=== PATIENT | male | born 1955 | race Caucasian/White ===

== ENCOUNTER → 2016-06-21 | Outpatient (CLI) | payer MEDICARE, BC ==
[2015-11-21 12:16] VITALS: BP 137/62
[~2016-06-21] MED LIST: ALPR0.254 PO; ASPI325T4 PO; ASPI81TA2 PO; ATOR20TA58 PO; BUPR150T20 PO; CEPH500C PO; ENOX40DI3 SQ; FAMO20TA5 PO; FLUO20CA8 PO; FURO40TA4 PO; GABA600T2 PO; INSU100C4 SQ; INSU100I17 SQ; INSU100I27 SQ; INSU100V13 SQ; INSU100V31 SQ; INSU100V8 SQ; LINE600T PO; LISI-338 PO; LISI10TA2 PO; LISI1TAB5 PO; METF850T2 PO; METH10TA2 PO; METH5TAB4 PO; METO25TA4 PO; METO25TA9 PO; OMEP40CA5 PO; OXYC-250 PO; OXYC1TAB7 PO; SENN-22 PO; SENN1TAB29 PO; SIMV80TA3 PO; SULFUR HEXAFLUORIDE MICROSPHR 25 MG VIAL. IVP ONE; TAMS0.4C2 PO; TRAM1TAB4 PO; TRAZ150T55 PO; TRAZ50TA15 PO; VILA40TA PO; ZOLP10TA4 PO; [UNRECOGNIZED DRUG - CODE] IV; [UNRECOGNIZED DRUG - CODE] PO; tramadol PO
--- NOTE | 2016-06-21 12:50 | CARD ---
APPROVED REPORT EXAM: Two-dimensional and M-mode echocardiogram with Doppler and color Doppler. Other Information Quality : Technically LimitedHR: 61bpm Technically limited study due to body habitus and CABG. INDICATION Aortic Valve Disease 2D DIMENSIONS RVDd3.8 (2.9-3.5cm)Left Atrium(2D)4.7 (1.6-4.0cm) IVSd1.4 (0.7-1.1cm)Aortic Root(2D)2.8 (2.0-3.7cm) LVDd5.7 (3.9-5.9cm)LVOT Diameter2.1 (1.8-2.4cm) PWd1.4 (0.7-1.1cm)LVDs4.0 (2.5-4.0cm) FS (%) 30.4 %SV91.6 ml LVEF(%)57.0 (>50%) Aortic Valve AoV Peak Theodore.381.3cm/sAoV VTI92.8cm AO Peak GR.58.2mmHgLVOT Peak Theodore.120.3cm/s LVOT VTI 28.79cmAO Mean GR.40mmHg TABITHA (VMAX)1.21em6QPQ (VTI)1.11cm2 AI P 1/2 Irmc104mh Mitral Valve MV E Tbjurziq464.6cm/sMV DECEL VPBA959dn MV A Dnpayibk64.2cm/sMV LBA36no E/A Ratio1.6MV A Xdzmabst963xm MVA (PHT)3.90cm2 TDI E/Lateral E'11.8E/Medial E'15.5 LEFT VENTRICLE The left ventricle is normal size. There is mild concentric left ventricular hypertrophy. Left ventri courtney systolic function is normal. The Ejection Fraction is 60-65%. There is normal LV segmental wall m otion. The left ventricular diastolic function and filling is normal for age. There is no ventricular septal defect visualized. RIGHT VENTRICLE The right ventricle is normal size. The right ventricular systolic function is normal. ATRIA The left atrium is mildly dilated. The right atrium size appears normal. The interatrial septum is in tact with no evidence for an atrial septal defect or patent foramen ovale as noted on 2-D or Doppler imaging. AORTIC VALVE Aortic valve not well visualized. The aortic valve is severely calcified and displays decreased openi ng. Doppler and Color Flow revealed mild aortic regurgitation. Maximum pressure gradient of 58 mmHg a nd mean pressure gradient of 34 mmHg. Peak velocity of 3.68 m/s. Dimensionless index of 0.33. TABITHA 1.2 cm2. TABITHA Index of 0.43. Overall, suggestive of severe aortic stenosis. MITRAL VALVE Mitral annular calcification is mild. The mitral valve leaflets are calcified. There is no evidence o f mitral valve prolapse. There is no mitral valve stenosis. Doppler and Color Flow revealed trace kathie ral regurgitation. TRICUSPID VALVE The tricuspid valve is normal in structure and function. Doppler and Color Flow revealed no tricuspid valve regurgitation noted. There is no tricuspid valve stenosis. PULMONIC VALVE The pulmonary valve is normal in structure and function. There is no pulmonic valvular stenosis. GREAT VESSELS The aortic root is normal in size. The ascending aorta is normal in size. Due to poor image quality, the IVC could not be assessed. PERICARDIAL EFFUSION There is no pleural effusion. There is no evidence of significant pericardial effusion. Critical Notification Critical Value: No <Conclusion> Left ventricle systolic function is normal. The Ejection Fraction is 60-65%. There is normal LV segmental wall motion. Maximum pressure gradient of 58 mmHg and mean pressure gradient of 34 mmHg. Peak velocity of 3.68 m/s . Dimensionless index of 0.33. TABITHA 1.2 cm2. TABITHA Index of 0.43. Overall, suggestive of severe aortic s tenosis.
== END | disposition home or self-care (01) ==
LOC: ECHO 09:51
PROVIDERS: ATTEND Internal Medicine Cardiovascular Disease
DX: I08.0 Rheumatic disorders of both mitral and aortic valves (principal)
CPT/HCPCS: C8929; Q9950

== ENCOUNTER → 2016-08-31 | Outpatient (CLI) | payer MEDICARE, BC ==
[2015-11-21 12:16] VITALS: BP 137/62
[~2016-08-31] MED LIST changes: +ASPI-630 PO; -ASPI325T4 PO; +ASPI325T8 PO; -ASPI81TA2 PO; -OXYC-250 PO; +OXYC-328 PO; -SULFUR HEXAFLUORIDE MICROSPHR 25 MG VIAL. IVP ONE; +TRAZ150T49 PO; -TRAZ150T55 PO
--- NOTE | 2016-08-31 14:46 | KCIC ---
MRI of the lumbar spine without contrast 08/31/2016 CLINICAL HISTORY: Low back pain which radiates down the right hip. TECHNIQUE: Unenhanced T1-weighted, T2-weighted sagittal and axial and inversion recovery sagittal images of the lumbar spine were obtained. FINDINGS: Comparison study is dated 08/09/2014 Minimal S-shaped curvature of the thoracolumbar spine is seen. Degenerative signal changes are seen involving the L3-4, L4-5 and L5-S1 discs. Degenerative signal changes are seen within the marrow surrounding these discs. The conus medullaris is normal morphology, position, and signal characteristics. The L1-2 disc space is within normal limits. At the L2-3 disc space there is a mild generalized disc bulge. Degenerative changes are seen involving the facet joints bilaterally. There is mild ligamentum flavum hypertrophy bilaterally. These findings do not result in significant central spinal canal or neural foraminal stenosis. At the L3-4 disc space there is a mild generalized disc bulge. Degenerative changes are seen involving the facet joints bilaterally. There is mild to moderate ligamentum flavum hypertrophy. There is prominence of the posterior epidural fat. These findings when combined do not result in significant central spinal canal or neural foraminal stenosis. At the L4-5 disc space there is a mild generalized disc bulge. Degenerative changes are seen involving the facet joints bilaterally. There is mild ligamentum flavum hypertrophy bilaterally. There is prominence of the posterior epidural fat. These findings when combined result in mild central spinal canal stenosis. No neural foraminal stenosis is seen. At the L5-S1 disc space there is a mild generalized disc bulge. Superimposed on the disc bulge is a right lateral focal disc protrusion. This measures 4 mm in AP diameter. Degenerative changes are seen involving the facet joints bilaterally. There is mild ligamentum flavum hypertrophy bilaterally. These findings when combined do not result in significant central spinal canal stenosis. Mild right neural foraminal stenosis is seen. The left neural foramen is patent. IMPRESSION: The changes of degenerative disc disease are seen involving the lumbar spine. These findings result in mild central spinal canal stenosis at L4-5. Mild right neural foraminal stenosis is seen at L5-S1. Electronically signed by: Reddy Cook MD (08/31/2016 2:43 PM) [facility]
== END | disposition home or self-care (01) ==
LOC: KCIC MRI 10:44
PROVIDERS: ATTEND Internal Medicine
DX: M48.06 Spinal stenosis, lumbar region (principal); M48.07 Spinal stenosis, lumbosacral region; M51.36 Other intervertebral disc degeneration, lumbar region
CPT/HCPCS: 72148

== ENCOUNTER → 2016-09-12 | Outpatient (CLI) | payer MEDICARE, BC ==
[2015-11-21 12:16] VITALS: BP 137/62
[~2016-09-12] MED LIST changes: +IOHEXOL 180 MG/ML 10 ML VIAL. ONE; +methylPREDNISolone ACETATE 40 MG/ML VIAL. ONE; +methylPREDNISolone ACETATE 80 MG/ML VIAL. ONE
--- NOTE | 2016-09-13 01:59 | PAIN ---
DATE OF SERVICE: 09/12/2016 DIAGNOSES: Lumbar radiculopathy with lumbar degenerative disk disease. HISTORY OF PRESENT ILLNESS: The patient is a 61-year-old male who returns for followup, last seen in 05/2014. The patient had a lumbar epidural steroid injection and right sacroiliac joint injection. He reports he did very well after both of these to the right sacroiliac joint was helpful as was the lumbar epidural steroid injection, but the patient reports that the pain has returned over the past 2 years now in the low back, right lower extremity, much more radiating at this time in to the posterior gluteus, posterior thigh, posterior lateral thigh and into the lower leg, and sometimes into the ankle, but mostly just into the calf on the right side. The patient reports no new motor or sensory deficits, no left-sided symptoms, reports his pain is anywhere from a 4 to 7 on a scale of 10, it is generally about 5. The patient reports it as aching and burning as well as a shooting pain that can be stabbing and cramping in his low back and is becoming more constant, much more noticeable with weightbearing, standing and walking much less comfortable and better with sitting. The patient reports it awakens him from sleep about once or twice a night, but generally he sleeps fairly well. It is better with lying down and sitting is noted. The patient reports no new motor or sensory deficits or other complaints. Did have a new MRI scan showing increased generalized disk bulge at L5-S1 with a right lateral focal disk protrusion at about 4 mm in AP diameter, also L4-L5. The patient with some mild generalized disk bulging as well as at L3-L4 and L2-L3. The patient reports significant fatigability of the right lower extremity and difficulty with walking and standing and reports he has fallen several times over the past few months secondary to the legs feeling unstable. PAST MEDICAL HISTORY: Significant for diabetes, hearing loss, shortness of breath, sleep apnea, quit cigarette smoking, hyperlipidemia, ____, depression, cardiac disease, arthritis, and headaches. PREVIOUS SURGERY: Include open heart surgery, appendectomy, left elbow surgery, cervical fusion and tonsillectomy as well as right knee scope. CURRENT MEDICATIONS: Include metformin, trazodone, metoprolol, senna, lisinopril, fluoxetine, omeprazole, NovoLog, bupropion, and trazodone. FAMILY HISTORY: Significant for no known medical conditions or illnesses. SOCIAL HISTORY: The patient has quit smoking. Does not drink alcohol. Lives with his spouse and lives locally. REVIEW OF SYSTEMS: The patient's review of systems is positive for those items mentioned in history of present illness, is completed, full, well documented on the patient's chart. PHYSICAL EXAMINATION: VITAL SIGNS: The patient's blood pressure is 131/62, pulse 78, respirations are 20, temperature is 98.3 degrees Fahrenheit, height is 6 feet 5 inches, weight is 334 pounds. GENERAL: The patient is awake, alert, oriented, appropriate, very pleasant demeanor. HEENT: Head shows normocephalic, atraumatic. Extraocular movements are intact and symmetrical. Oral cavity, mucous membranes are moist and pink. Dentition is intact. NECK: Shows anterior throat supple without palpable lymphadenopathy noted. Swallow reflex is symmetrical. Neck shows full rotational motion with some mild tenderness with extension, but not with forward flexion and good right and left lateral rotation. CHEST: Shows normal on inspection. Breath sounds are clear to auscultation bilaterally. No rales, rhonchi or wheezes were auscultated. HEART: Shows S1 and S2 clear. No murmurs auscultated. ABDOMEN: Obese, soft, nontender, nondistended. No palpable organomegaly is noted. BACK: Shows spine grossly midline. Normal appearing thoracic kyphosis and lumbar lordotic curvatures. Lumbar paraspinous muscle shows some moderate tenderness diffusely in the lower lumbar distribution bilaterally, worse on the right than the left, also some minor tenderness over the posterior superior iliac spine on the right side, but not the left side, but only very minor with palpation. The patient shows good rotation and motion of the lumbar spine, both laterally as well as extension and flexion without difficulty. EXTREMITIES: The patient's lower extremities showed deep tendon reflexes 1+ in the patellar and tendo calcaneus tendons are equal. Motor exam is intact with dorsiflexion and extension rated at 5/5 at his quadriceps and hamstring flexion. Right side shows positive straight leg raise on the right at about 45 degrees, but decreased with knee flexion, left side is negative. Gaenslen's and Rene's maneuvers are negative bilaterally. The patient is able to stand, but difficulty standing and walking with significant favoring gait of his right lower extremity. He has a walker, but is not using it currently. Options were discussed with the patient. The patient's old chart was reviewed as his current medication regimen updated. Current review of systems updated today as noted. We will proceed with a lumbar epidural steroid injection. He has done well with these in the past by his report. Risks were again discussed including, but not limited to bleeding, infection, possibility of epidural hematoma, subsequent neurologic compromise, dural puncture, headaches, spinal cord and/or nerve damage, side effects of steroid medication and poor results regarding pain control. The patient understands and wishes to proceed. The patient will return to clinic in approximately 2 weeks for followup, was counseled on return appointment, activity level and side effects to be aware of. DIAGNOSIS: Lumbar radiculopathy with lumbar degenerative disk disease. PROCEDURES Lumbar epidural steroid injection in translaminar approach at the L5-S1 level using C-arm fluoroscopic guidance under sterile prep and drape using local anesthetic. Medication injected is 120 mg Depo-Medrol plus 10 mL of preservative-free normal saline and 2 mL of Isovue for contrast. CONDITION AT DISCHARGE: Stable. The patient tolerated procedure well, had no complications. ANTONIO DELVALLE MD DR: MOSES/hailee JOB#: [id number] / [id number]
== END | disposition home or self-care (01) ==
LOC: PNCL 12:42
PROVIDERS: ATTEND Anesthesiology
DX: M51.16 Intervertebral disc disorders with radiculopathy, lumbar region (principal); E11.9 Type 2 diabetes mellitus without complications; H91.90 Unspecified hearing loss, unspecified ear; E78.5 Hyperlipidemia, unspecified; F32.9 Major depressive disorder, single episode, unspecified; M19.90 Unspecified osteoarthritis, unspecified site; E78.00 Pure hypercholesterolemia, unspecified; I10 Essential (primary) hypertension; F41.9 Anxiety disorder, unspecified; F17.200 Nicotine dependence, unspecified, uncomplicated; Z87.891 Personal history of nicotine dependence; Z86.69 Personal history of other diseases of the nervous system and sense organs; Z90.49 Acquired absence of other specified parts of digestive tract; Z87.39 Personal history of other diseases of the musculoskeletal system and connective tissue; Z86.39 Personal history of other endocrine, nutritional and metabolic disease; Z72.0 Tobacco use; Z88.6 Allergy status to analgesic agent
CPT/HCPCS: 62323; J1030; J1040

== ENCOUNTER → 2017-05-10 | Outpatient (CLI) | payer MEDICARE, BC | END | disposition home or self-care (01) | LOC: KCIC 15:22 | DX: I35.0 Nonrheumatic aortic (valve) stenosis (principal); R91.8 Other nonspecific abnormal finding of lung field; Z95.0 Presence of cardiac pacemaker | CPT/HCPCS: 71046 ==

== ENCOUNTER → 2017-10-01 | Outpatient (CLI) | payer MEDICARE, BC ==
[2017-02-17 15:15] VITALS: BP 128/57
[~2017-10-01] MED LIST changes: +ACET500T68 PO; +ATORVASTATIN CA80 MG PO; +CHOL10003 PO; +CLOP75TA PO; +CYAN25008 PO; +DICL100G18 TP; +DOCU100C28 PO; +ERGO500027 PO; +FLUO40CA2 PO; -IOHEXOL 180 MG/ML 10 ML VIAL. ONE; +METH20TA8 PO; +METO-239 PO; -METO25TA9 PO; +NITR0.4T22 SL; +PERFLUTREN PROTEIN-A MICROSPHR 0.22 MG/ML 3 ML VIAL. IV ONE; -SIMV80TA3 PO; +SIMV80TA7 PO; +TRAZ-85 PO; -TRAZ50TA15 PO; +TRIA15OI9 TP; -methylPREDNISolone ACETATE 40 MG/ML VIAL. ONE; -methylPREDNISolone ACETATE 80 MG/ML VIAL. ONE
--- NOTE | 2017-10-01 11:28 | CARD ---
MR#: [id number] Date of Study: 10/01/2017 Ordering Physician: NAHUM SEXTON, Referring Physician: NAHUM SEXTON, Tech: DESIRAE Solis APPROVED REPORT EXAM: Two-dimensional and M-mode echocardiogram with Doppler and color Doppler. Other Information Quality : PoorHR: 91bpm Technically limited study due to body habitus and smoking. INDICATION Aortic Stenosis Echo Enhancing Agent Indication: Endocardial border delineation Agent/Amount Used: Optison 3mL Surgery/Intervention Status/Post Aortic Valve Replacement: Pacemaker: RISK FACTORS Hypertension Obesity Smoking 2D DIMENSIONS RVDd5.2 (2.9-3.5cm)Left Atrium(2D)3.5 (1.6-4.0cm) IVSd1.6 (0.7-1.1cm)Aortic Root(2D)3.0 (2.0-3.7cm) LVDd3.9 (3.9-5.9cm)LVOT Diameter2.0 (1.8-2.4cm) PWd1.6 (0.7-1.1cm)LVDs3.0 (2.5-4.0cm) FS (%) 22.8 %SV30.0 ml LVEF(%)46.4 (>50%) Aortic Valve AoV Peak Theodore.111.2cm/sAoV VTI22.0cm AO Peak GR.4.9mmHgLVOT Peak Theodore.100.9cm/s LVOT VTI 20.82cmAO Mean GR.3mmHg TABITHA (VMAX)1.54jn0FDE (VTI)3.06cm2 Mitral Valve MV E Bjbvoejm29.2cm/sMV DECEL CMMD350zv MV A Ehwdrhbt729.4cm/sMV JTA195rw E/A Ratio0.7MVA (PHT)1.47cm2 TDI E/Lateral E'9.5E/Medial E'8.9 Pulmonary Valve RVOT VTI14.8cm LEFT VENTRICLE The left ventricle is normal size. There is moderate concentric left ventricular hypertrophy. The lef t ventricular systolic function is normal and the ejection fraction is within normal range. ef 55% Th ere is normal LV segmental wall motion. Transmitral Doppler flow pattern is Grade I-abnormal relaxati on pattern. RIGHT VENTRICLE The right ventricle is mildly dilated. The right ventricular systolic function is normal. ATRIA The left atrium size is normal. The right atrium size is normal. The interatrial septum is intact wit h no evidence for an atrial septal defect or patent foramen ovale as noted on 2-D or Doppler imaging. AORTIC VALVE Doppler and Color Flow revealed no significant aortic regurgitation. There is no significant aortic v alvular stenosis. There is no aortic valvular vegetation. Transcatheter aortic valve not well visuali zed. Grossly no significant stenosis or regurgitation. MITRAL VALVE The mitral valve is not well visualized. There is no mitral valve stenosis. Doppler and Color Flow re vealed no mitral valve regurgitation noted. TRICUSPID VALVE The tricuspid valve is not well visualized. Doppler and color-flow analysis was performed. There is n o tricuspid valve stenosis. PULMONIC VALVE The pulmonic valve is not well visualized. Doppler and Color Flow revealed no pulmonic valvular regur gitation. There is no pulmonic valvular stenosis. GREAT VESSELS The aortic root is not well visualized. The IVC was not visualized. PERICARDIAL EFFUSION There is no pleural effusion. There is no evidence of significant pericardial effusion. Critical Notification Critical Value: No <Conclusion> The left ventricular systolic function is normal and the ejection fraction is within normal range. ef 55% There is normal LV segmental wall motion. The right ventricle is mildly dilated. Transcatheter aortic valve not well visualized. Grossly no significant stenosis or regurgitation. Technically very difficult study despite contrast use due to body habitus. Signed by : Nahum Sexton, Electronically Approved : 10/01/2017 11:27:49
== END | disposition home or self-care (01) ==
LOC: ECHO 08:49
PROVIDERS: ATTEND Internal Medicine Cardiovascular Disease
DX: I35.0 Nonrheumatic aortic (valve) stenosis (principal); I11.0 Hypertensive heart disease with heart failure; I50.9 Heart failure, unspecified; E11.9 Type 2 diabetes mellitus without complications; E78.00 Pure hypercholesterolemia, unspecified; J44.9 Chronic obstructive pulmonary disease, unspecified; I25.10 Atherosclerotic heart disease of native coronary artery without angina pectoris; K21.9 Gastro-esophageal reflux disease without esophagitis; Z87.891 Personal history of nicotine dependence
CPT/HCPCS: C8929; Q9956

== ENCOUNTER 2017-11-23 23:53 | Emergency (ER) | payer MEDICARE, BC ==
[~2017-11-23] VITALS: Ht 195.6 cm; Wt 155.6 kg
[~2017-11-23 23:53] MED LIST changes: -METF850T2 PO; +METF850T8 PO; -PERFLUTREN PROTEIN-A MICROSPHR 0.22 MG/ML 3 ML VIAL. IV ONE
[2017-11-24 00:17] LABS: BASO # 0.1 x10^3/uL (0.0-0.2); BASO % 1 % (0-3); EOS # 0.3 x10^3/uL (0.0-0.7); EOS % 3 % (0-3); HEMATOCRIT 36.3 % (39.0-53.0); LYMPH # 2.4 x10^3/uL (1.0-4.8); LYMPH % 24 % (24-48); MEAN CORPUSCULAR HEMOGLOBIN 26 pg (25-35); MEAN CORPUSCULAR HGB CONC 33 g/dL (31-37); MEAN CORPUSCULAR VOLUME 79 fL (79-100); MONO # 1.3 x10^3/uL (0.0-1.1); MONO % 13 % (0-9); NEUT # 5.8 x10^3uL (1.8-7.7); NEUT % 59 % (31-73); PLATELET COUNT 256 x10^3/uL (140-400); RED BLOOD COUNT 4.61 x10^6/uL (4.30-5.70); RED CELL DISTRIBUTION WIDTH 17.5 % (11.5-14.5); WHITE BLOOD COUNT 9.9 x10^3/uL (4.0-11.0)
[2017-11-24 00:29] LABS: CALCIUM 9.6 mg/dL (8.5-10.1); CREATININE 1.4 mg/dL (0.7-1.3); POTASSIUM 4.2 mmol/L (3.5-5.1)
[2017-11-24 00:34] LABS: ALBUMIN 3.5 g/dL (3.4-5.0); ALBUMIN/GLOBULIN RATIO 0.9 (1.0-1.7); TOTAL BILIRUBIN 0.3 mg/dL (0.2-1.0); TOTAL PROTEIN 7.3 g/dL (6.4-8.2)
--- NOTE | 2017-11-24 01:34 | RAD ---
Bilateral lower extremity venous Doppler: Reason for examination: Bilateral leg edema. The right and left lower extremity venous systems were evaluated from the common femoral and greater saphenous veins distally to the calf veins with grayscale imaging, color-flow imaging and spectral analysis. There is no evidence of deep venous thrombosis seen. There appears to be normal venous blood flow. There is normal response of the venous systems to compression and augmentation. IMPRESSION: No deep venous thrombosis in the right or left lower extremity. Electronically signed by: Miriam Steve MD (11/24/2017 1:31 AM) [facility]
[2017-11-24 02:45] VITALS: BP 135/59
--- NOTE | 2017-11-24 02:49 | RAD ---
Chest AP portable at 1205: Reason for examination: Syncope. Chest pain. Comparison is made to previous study dated 05/10/2017. Pacemaker remains present over the left hemithorax. There are postop changes in the sternum. The heart size appears to be enlarged. Lung graves are clear. No acute bony abnormalities are seen. There are postop changes in the lower cervical spine. IMPRESSION: Cardiomegaly. No acute congestion or infiltrates. Electronically signed by: Miriam Steve MD (11/24/2017 2:46 AM) [facility]
--- NOTE | 2017-11-24 05:21 | PHYS DOC ---
Past Medical History Past Medical History: Arthritis, CAD, Depression, Diabetes-Type II, GERD, High Cholesterol, Hypertension, Other Additional Past Medical Histor: neuropathy Past Surgical History: Other Additional Past Surgical Histo: bilat great toes,bilat knee sx,R elbow,neck fusion,PACEMAKER,STENT,VALVE Alcohol Use: None Drug Use: None Adult General Chief Complaint Chief Complaint: WEAKNESS/GENERALIZED HPI HPI Patient is a 62 year old male with history of CAD, osteoarthritis, trouble and diabetes, who presents with accidental fall from standing. Patient states he was getting out of bed to use bathroom please give out causing him to fall. Patient denies injury from fall but states he was unable to stand. Spouse reports the patient was week and difficulty responding, symptoms corrected prior to EMS arrival. Patient denies headache, head injury, neck pain, palpitations, shortness of breath, focal extremity weakness or loss of sensation. Patient does acknowledge taking sleeping pill prior to bed per his normal routine. Other than leg cramps which are chronic, he denies any symptoms in the emergency department..[] Review of Systems Review of Systems Review symptoms as per history of present illness. All other review symptoms are negative.[] All other systems were reviewed and found to be within normal limits, except as documented in this note. Allergies Allergies Allergies Coded Allergies Type Severity Reaction Last Updated Verified cortisone Allergy Intermediate Pt had swelling at injection site 02/03/15 Yes Physical Exam Physical Exam Constitutional: Well developed, well nourished, no acute distress, non-toxic appearance. [] HENT: Normocephalic, atraumatic, bilateral external ears normal, oropharynx moist, no oral exudates, nose normal. [] Eyes: PERRLA, EOMI, conjunctiva normal, no discharge. [] Neck: Normal range of motion, no tenderness, supple, no stridor. [] Cardiovascular:Heart rate regular rhythm, no murmur [] Lungs & Thorax: Bilateral breath sounds clear to auscultation [] Abdomen: Bowel sounds normal, soft, no tenderness. [] Skin: Warm, dry, no erythema, no rash. [] Back: No tenderness, no CVA tenderness. [] Extremities: No tenderness, no edema. [] Neurologic: Alert and oriented X 3, normal motor function, normal sensory function, no focal deficits noted. [] Psychologic: Affect normal, judgement normal, mood normal. [] Current Patient Data Vital Signs Vital Signs Date Time Temp Pulse Resp B/P (MAP) Pulse Ox O2 Delivery O2 Flow Rate FiO2 11/24/17 02:45 90 20 92 11/23/17 23:53 98.1 120/72 (88) Room Air 98.1 Lab Values Laboratory Tests Test 11/23/17 23:05 White Blood Count 9.9 x10^3/uL (4.0-11.0) Red Blood Count 4.61 x10^6/uL (4.30-5.70) Hemoglobin 12.0 g/dL (13.0-17.5) L Hematocrit 36.3 % (39.0-53.0) L Mean Corpuscular Volume 79 fL (79-100) Mean Corpuscular Hemoglobin 26 pg (25-35) Mean Corpuscular Hemoglobin Concent 33 g/dL (31-37) Red Cell Distribution Width 17.5 % (11.5-14.5) H Platelet Count 256 x10^3/uL (140-400) Neutrophils (%) (Auto) 59 % (31-73) Lymphocytes (%) (Auto) 24 % (24-48) Monocytes (%) (Auto) 13 % (0-9) H Eosinophils (%) (Auto) 3 % (0-3) Basophils (%) (Auto) 1 % (0-3) Neutrophils # (Auto) 5.8 x10^3uL (1.8-7.7) Lymphocytes # (Auto) 2.4 x10^3/uL (1.0-4.8) Monocytes # (Auto) 1.3 x10^3/uL (0.0-1.1) H Eosinophils # (Auto) 0.3 x10^3/uL (0.0-0.7) Basophils # (Auto) 0.1 x10^3/uL (0.0-0.2) D-Dimer (Lizet) 0.75 ug/mlFEU (0.00-0.50) H Sodium Level 142 mmol/L (136-145) Potassium Level 4.2 mmol/L (3.5-5.1) Chloride Level 100 mmol/L (98-107) Carbon Dioxide Level 33 mmol/L (21-32) H Anion Gap 9 (6-14) Blood Urea Nitrogen 20 mg/dL (8-26) Creatinine 1.4 mg/dL (0.7-1.3) H Estimated GFR (Cockcroft-Gault) 51.0 BUN/Creatinine Ratio 14 (6-20) Glucose Level 100 mg/dL (70-99) H Calcium Level 9.6 mg/dL (8.5-10.1) Total Bilirubin 0.3 mg/dL (0.2-1.0) Aspartate Amino Transferase (AST) 30 U/L (15-37) Alanine Aminotransferase (ALT) 30 U/L (16-63) Alkaline Phosphatase 122 U/L (46-116) H Troponin I Quantitative < 0.017 ng/mL (0.000-0.055) Total Protein 7.3 g/dL (6.4-8.2) Albumin 3.5 g/dL (3.4-5.0) Albumin/Globulin Ratio 0.9 (1.0-1.7) L Laboratory Tests 11/23/17 23:05 Laboratory Tests 11/23/17 23:05 EKG EKG [EKG: NAD] Radiology/Procedures Radiology/Procedures CXR: NAD[] Course & Med Decision Making Course & Med Decision Making Pertinent Labs and Imaging studies reviewed. (See chart for details) [Labs, EKG imaging reviewed. Patient able to walk and wheelchair with steady gait. feels improved and requests discharge home. Recommend follow-up with the for further evaluation. Return precautions reviewed. Patient verbalizes understanding agreement discharge instructions prior to departure.] Dragon Disclaimer Dragon Disclaimer This electronic medical record was generated, in whole or in part, using a voice recognition dictation system. Departure Departure Impression: Primary Impression: Bilateral leg cramps Disposition: 01 HOME, SELF-CARE Condition: STABLE Patient Instructions: Leg Cramps Additional Instructions: You were valuated emergency department for leg cramping brief change of consciousness. CT, lab and imaging studies were performed. The cause of your symptoms has not been determined. Please keep your walker next to the bed and use a bedside commode or urinal. Contact your PCP tomorrow and schedule follow- up appointment early next week. Return to the ED if new or worsening symptoms.. CHRIS SHEPHERD DO Nov 24, 2017 05:21
--- NOTE | 2017-11-24 13:01 | EKG ---
[facility] [address] [place] [address] Test Date: 2017-11-23 Test Time: 23:51:54 Pat Name: ISRAEL MOFFETT Department: Room: Gender: M Social Media Developer: : [id number] Requested By: CHRIS SHEPHERD Order Number: [id number] Reading MD: Measurements Intervals [place] Rate: 92 P: 31 HI: 178 QRS: 69 QRSD: 146 T: 23 QT: 408 QTc: 510 Interpretive Statements SINUS RHYTHM RIGHT BUNDLE BRANCH BLOCK RVH WITH REPOLARIZATION ABNORMALITY ABNORMAL ECG RI6.01 No previous ECG available for comparison
== END 2017-11-24 03:20 | disposition home or self-care (01) ==
LOC: ER 23:53
DX: R25.2 Cramp and spasm (principal); J45.909 Unspecified asthma, uncomplicated; K21.9 Gastro-esophageal reflux disease without esophagitis; I25.10 Atherosclerotic heart disease of native coronary artery without angina pectoris; E11.40 Type 2 diabetes mellitus with diabetic neuropathy, unspecified; E78.00 Pure hypercholesterolemia, unspecified; I10 Essential (primary) hypertension; R07.89 Other chest pain; R55 Syncope and collapse; R60.0 Localized edema; M19.90 Unspecified osteoarthritis, unspecified site; Z95.0 Presence of cardiac pacemaker; Z98.1 Arthrodesis status; Z95.5 Presence of coronary angioplasty implant and graft; Z88.8 Allergy status to other drugs, medicaments and biological substances
CPT/HCPCS: 36415; 71045; 80053; 84484; 85025; 85379; 93005; 93970; 99285-25

== ENCOUNTER → 2018-01-14 | Outpatient (CLI) | payer MEDICARE, BC ==
[2018-01-04 08:53] VITALS: BP 129/74
[~2018-01-14] MED LIST changes: +CITA20TA6 PO; +MIDO5TAB PO; -OXYC-328 PO; +OXYC1TAB22 PO
--- NOTE | 2018-01-14 15:40 | KCIC ---
EXAM: Carotid Doppler sonogram. HISTORY: Carotid bruit. TECHNIQUE: Arcos scale and color Doppler sonographic evaluation of the neck with spectral waveform analysis was performed and static images are submitted for review. FINDINGS: The exam is extremely limited due to patient body habitus and motion throughout the exam. There is moderate atherosclerotic plaque within the right greater left common carotid arteries, bilateral carotid bulbs and proximal internal and external carotid arteries. The peak systolic velocity within the right common carotid artery is 140 cm/sec. The peak systolic velocity within the right internal carotid artery is 172 cm/sec and the end diastolic velocity within the right internal carotid artery is 27 cm/sec. The right ICA/CCA ratio is 1.33. The peak systolic velocity within the left common carotid artery is 1 heart and 35 cm/sec. The peak systolic velocity within the left internal carotid artery is 98 cm/sec and the end diastolic velocity within the left internal carotid artery is 28 cm/sec. The left ICA/CCA ratio is 0.72. There is normal antegrade flow within the right vertebral artery. The left vertebral artery is not well seen. IMPRESSION: 1. Significantly limited exam due to body habitus and patient motion. 2. Moderate atherosclerotic plaque throughout the common, internal and external carotid arteries and carotid bulbs. 3. Elevated peak systolic velocity within the right ICA. Despite normal ICA to CCA ratio, this suggests 50-69 percent stenosis. 4. Suboptimal evaluation of the left vertebral artery. This may be due to low flow, hypoplasia or aforementioned study limitations. PQRS Compliance Statement - Stenosis calculations for CT, MR and conventional angiography are based upon measurement of the distal ICA diameter in accordance with the NASCET methodology. Stenosis calculations for carotid ultrasound studies are derived from validated velocity criteria which are known to correlate with the NASCET methodology. Electronically signed by: Glenys Ng MD (01/14/2018 3:37 PM) [facility]
== END | disposition home or self-care (01) ==
LOC: KCIC US 13:06
PROVIDERS: ATTEND Internal Medicine
DX: I65.23 Occlusion and stenosis of bilateral carotid arteries (principal)
CPT/HCPCS: 93880

== ENCOUNTER 2018-06-10 12:29 | Emergency (ER) | payer MEDICARE, BC ==
[~2018-06-10] VITALS: Ht 195.6 cm; Wt 163.3 kg
[~2018-06-10 12:29] MED LIST changes: -GABA600T2 PO; +GABA600T7 PO; +SIMV80TA17 PO; -SIMV80TA7 PO; +TRAZ-118 PO; -TRAZ-85 PO
--- NOTE | 2018-06-10 12:52 | PHYS DOC ---
Past Medical History Past Medical History: Arthritis, CAD, Depression, Diabetes-Type II, GERD, High Cholesterol, Hypertension, Other Additional Past Medical Histor: neuropathy,SLEEP APNEA Past Surgical History: Angioplasty, Pacemaker, Other Additional Past Surgical Histo: bilat great toes/knee sx,L elbow,neck fusion,STENT,VALVE,ANAL FISSURE Alcohol Use: None Drug Use: None Adult General Chief Complaint Chief Complaint: SHORTNESS OF BREATH HPI HPI Patient is a 62 year old M who presents with SOB and CP. He has a history of a quadruple bypass. He says he is sob and has cp with exertion. He denies dizziness, syncope, vomiting, fever, cough. He denies orthopnea. [place] and became very sob. 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 Review of Systems Review of Systems Constitutional: Denies fever or chills Eyes: Denies change in visual acuity, redness, or eye pain HENT: Denies nasal congestion or sore throat Respiratory: Denies cough; endorses shortness of breath Cardiovascular: endorses cp GI: Denies abdominal pain, nausea, vomiting, bloody stools or diarrhea : Denies dysuria or hematuria Musculoskeletal: Denies back pain or joint pain Integument: Denies rash or skin lesions Neurologic: Denies headache, focal weakness or sensory changes Endocrine: Denies polyuria or polydipsia All other systems were reviewed and found to be within normal limits, except as documented in this note. Current Medications Current Medications Current Medications Medications (Trade) Dose Ordered Sig/Martha Start Time Stop Time Status Last Admin Dose Admin Info (CONTRAST GIVEN -- Rx MONITORING) 1 each PRN DAILY PRN 06/10/18 13:30 06/12/18 13:29 Iohexol (Omnipaque 350 Mg/ml) 100 ml 1X ONCE 06/10/18 13:30 06/10/18 13:31 DC 06/10/18 13:35 100 ML Allergies Allergies Allergies Coded Allergies Type Severity Reaction Last Updated Verified cortisone Allergy Intermediate Pt had swelling at injection site 02/03/15 Yes Physical Exam Physical Exam Constitutional: Well developed, well nourished, no acute distress, non-toxic appearance. HENT: Normocephalic, atraumatic, bilateral external ears normal, oropharynx moist, no oral exudates, nose normal. Eyes: PERRLA, EOMI, conjunctiva normal, no discharge. Neck: Normal range of motion, no tenderness, supple, no stridor. Cardiovascular:Heart rate regular rhythm, no murmur Lungs & Thorax: Bilateral breath sounds clear to auscultation Abdomen: Bowel sounds normal, soft, no tenderness, no masses, no pulsatile masses. Skin: Warm, dry, no erythema, no rash. Back: No tenderness, no CVA tenderness. Extremities: No tenderness, no cyanosis, no clubbing, ROM intact, no edema. Neurologic: Alert and oriented X 3, normal motor function, normal sensory function, no focal deficits noted. Psychologic: Affect normal, judgement normal, mood normal. Current Patient Data Vital Signs Vital Signs Date Time Temp Pulse Resp B/P (MAP) Pulse Ox O2 Delivery O2 Flow Rate FiO2 06/10/18 12:46 97.9 93 20 145/65 (91) 94 Room Air 97.9 Lab Values Laboratory Tests Test 06/10/18 12:50 06/10/18 12:55 06/10/18 15:15 White Blood Count 7.4 x10^3/uL (4.0-11.0) Red Blood Count 4.32 x10^6/uL (4.30-5.70) Hemoglobin 10.6 g/dL (13.0-17.5) L Hematocrit 33.7 % (39.0-53.0) L Mean Corpuscular Volume 78 fL (79-100) L Mean Corpuscular Hemoglobin 25 pg (25-35) Mean Corpuscular Hemoglobin Concent 31 g/dL (31-37) Red Cell Distribution Width 17.2 % (11.5-14.5) H Platelet Count 239 x10^3/uL (140-400) Neutrophils (%) (Auto) 68 % (31-73) Lymphocytes (%) (Auto) 18 % (24-48) L Monocytes (%) (Auto) 12 % (0-9) H Eosinophils (%) (Auto) 2 % (0-3) Basophils (%) (Auto) 1 % (0-3) Neutrophils # (Auto) 5.0 x10^3uL (1.8-7.7) Lymphocytes # (Auto) 1.3 x10^3/uL (1.0-4.8) Monocytes # (Auto) 0.9 x10^3/uL (0.0-1.1) Eosinophils # (Auto) 0.1 x10^3/uL (0.0-0.7) Basophils # (Auto) 0.0 x10^3/uL (0.0-0.2) Prothrombin Time 13.5 SEC (11.7-14.0) Prothrombin Time INR 1.1 (0.8-1.1) Sodium Level 141 mmol/L (136-145) Potassium Level 4.4 mmol/L (3.5-5.1) Chloride Level 104 mmol/L (98-107) Carbon Dioxide Level 29 mmol/L (21-32) Anion Gap 8 (6-14) Blood Urea Nitrogen 17 mg/dL (8-26) Creatinine 1.2 mg/dL (0.7-1.3) Estimated GFR (Cockcroft-Gault) 61.0 BUN/Creatinine Ratio 14 (6-20) Glucose Level 150 mg/dL (70-99) H Calcium Level 8.9 mg/dL (8.5-10.1) Magnesium Level 1.7 mg/dL (1.8-2.4) L Total Bilirubin 0.3 mg/dL (0.2-1.0) Aspartate Amino Transferase (AST) 25 U/L (15-37) Alanine Aminotransferase (ALT) 23 U/L (16-63) Alkaline Phosphatase 113 U/L (46-116) PS-Akz-V-Type Natriuretic Peptide 195 pg/mL (0-124) H Total Protein 6.4 g/dL (6.4-8.2) Albumin 3.1 g/dL (3.4-5.0) L Albumin/Globulin Ratio 0.9 (1.0-1.7) L Troponin I Quantitative 0.041 ng/mL (0.000-0.055) 0.033 ng/mL (0.000-0.055) Laboratory Tests 06/10/18 12:50 Laboratory Tests 06/10/18 12:50 EKG EKG Sinus rhythm 92 bpm, no ST elev or depr, nonischemic, QTc 503 Radiology/Procedures Radiology/Procedures [] Course & Med Decision Making Course & Med Decision Making Pertinent Labs and Imaging studies reviewed. (See chart for details) 62 y/o M with h/o 4xCABG presents for cp and sob with exertion. Labs show neg trop. EKG no acute ischemia. CT chest neg for PE. I recommended obs admission for ACS rule out - pt requests 2nd opinion. Consulted Dr. Johann Arrieta. He recs dc home if delta trop neg. Repeat trop neg. Dc home. Discussed return precautions. Dragon Disclaimer Dragon Disclaimer This electronic medical record was generated, in whole or in part, using a voice recognition dictation system. Departure Departure Impression: Primary Impression: Chest pain Disposition: HOME, SELF-CARE Condition: IMPROVED Referrals: POLLO ARTEAGA MD (PCP) Patient Instructions: Chest Pain (Nonspecific) CANDIDO RICK MD Jun 10, 2018 12:52
[2018-06-10 13:02] LABS: BASO % 1 % (0-3); EOS # 0.1 x10^3/uL (0.0-0.7); EOS % 2 % (0-3); HEMATOCRIT 33.7 % (39.0-53.0); HEMOGLOBIN 10.6 g/dL (13.0-17.5); LYMPH # 1.3 x10^3/uL (1.0-4.8); LYMPH % 18 % (24-48); MEAN CORPUSCULAR HEMOGLOBIN 25 pg (25-35); MEAN CORPUSCULAR HGB CONC 31 g/dL (31-37); MEAN CORPUSCULAR VOLUME 78 fL (79-100); MONO # 0.9 x10^3/uL (0.0-1.1); MONO % 12 % (0-9); NEUT % 68 % (31-73); PLATELET COUNT 239 x10^3/uL (140-400); RED BLOOD COUNT 4.32 x10^6/uL (4.30-5.70); RED CELL DISTRIBUTION WIDTH 17.2 % (11.5-14.5); WHITE BLOOD COUNT 7.4 x10^3/uL (4.0-11.0)
[2018-06-10 13:12] LABS: PROTHROMBIN TIME PATIENT 13.5 SEC (11.7-14.0)
[2018-06-10 13:14] LABS: CALCIUM 8.9 mg/dL (8.5-10.1); CREATININE 1.2 mg/dL (0.7-1.3); POTASSIUM 4.4 mmol/L (3.5-5.1)
[2018-06-10 13:20] LABS: ALBUMIN 3.1 g/dL (3.4-5.0); ALBUMIN/GLOBULIN RATIO 0.9 (1.0-1.7); MAGNESIUM 1.7 mg/dL (1.8-2.4); TOTAL BILIRUBIN 0.3 mg/dL (0.2-1.0); TOTAL PROTEIN 6.4 g/dL (6.4-8.2)
[2018-06-10] MEDS ORDERED: CONTRAST GIVEN. MC PRN (13:30)
[2018-06-10] MEDS ORDERED: IOHEXOL 350 MG/ML 100 ML VIAL. IV ONE (13:30)
--- NOTE | 2018-06-10 13:55 | RAD ---
CT ANGIOGRAPHY CHEST Indication: CHEST PAIN, SOB, SENT TO THE ED FROM HIS DOCTOR
IV OMNI 350 100 MLS
PREVIOUS . Technique: After intravenous contrast administration, CT imaging was performed of the chest. MIP reconstructions were obtained. Exposure: One or more of the following individualized dose reduction techniques were utilized for this examination: 1. Automated exposure control 2. Adjustment of the mA and/or kV according to patient size 3. Use of iterative reconstruction technique. No prior study available for comparison Pulsatility artifact at the main pulmonary artery. No evidence of pulmonary embolism. The thoracic aorta is calcified without evidence of an aneurysm. No evidence of dissection in the thoracic aorta. There is a stent or graft at the aortic valve. Coronary artery calcifications. No significant lymph node enlargement. No pericardial effusion. Partially seen thyroid is symmetric. No significant pleural effusion. There is no evidence of consolidating infiltrate or dominant mass in either lung. There are mild markings in both lungs particularly inferiorly, likely atelectasis. Bullae identified in the right lower lung. Trachea and mainstem bronchi are patent. Degenerative spondylosis of the spine. Vertebral body height is maintained. Limited slices through the upper abdomen. These demonstrate no acute findings. IMPRESSION: 1. No evidence of pulmonary embolism. 2. Atherosclerotic disease 3. No consolidating infiltrate in either lung. Electronically signed by: Wilfredo Vizcaino MD (06/10/2018 1:53 PM) [facility]
[2018-06-10 14:30] VITALS: BP 169/70
--- NOTE | 2018-06-10 15:01 | PDOC2 ---
CARDIAC CONSULT DATE OF CONSULT Date of Consult DATE: 06/10/18 TIME: 14:55 REASON FOR CONSULT Reason for Consult: Chest pain REFERRING PHYSICIAN Referring Physician: Mary Ellen SOURCE Source: Chart review, Patient HISTORY OF PRESENT ILLNESS HISTORY OF PRESENT ILLNESS This is a pleasant 62 yo male admitted for complains of chest pain and SOA. He is originally going to see his PCP today but she was on vacation and saw somebody else instead. He complained of CP and SOA and some leg discomfort and was advised to go to ED for further eval. I talked to him and his left chest pain is chronic and has not been worse and its dull. His SOA is not significant. His acitivity tolerance is very limited and blames his SHIPMAN due to his wt gain of 25 pounds in the last several months. He does have DPN to his LE but no open wounds. He has known PAD but this is medically treated. No nausea, jaw tightness, palpitations. His exertion does not make his CP worse or his SHIPMAN is the same with exertion. He has been complaint with his medications. No significant leg edema no different from his baseline and no PND or wheezing. No recent falls or injury. PAST MEDICAL HISTORY Past Medical History Cardiovascular: CAD, HTN, Syncope, Hyperlipidemia, Aortic stenosis, Other (orthostatic hypotension) Pulmonary: COPD, Other (DONALDO) CENTRAL NERVOUS SYSTEM: Periperal neuropathy GI: GERD Hepatobiliary: Cholelithiasis Psych: Depression Musculoskeletal: Osteoarthritis Rheumatologic: Fibromyalgia Endocrine: Diabetes (2) PAST SURGICAL HISTORY Past Surgical History Pacemaker, Appendectomy, Arthroscopy (right wrist left elbow), Cholecystectomy, CABG (x4 01/2015 CHRIS graft to the LAD, a saphenous vein graft to the PDA and a second saphenous vein graft in skip fashion from a right ramus vessel and to an obtuse marginal vessel. ), Other (TAVR 12/2016; sinus surgery) FAMILY HISTORY Family History: Heart Disease SOCIAL HISTORY Social History Smoke: Quit (76 pk yr) ALCOHOL: none Drugs: None Lives: alone CURRENT MEDICATIONS CURRENT MEDICATIONS Current Medications Medications (Trade) Dose Ordered Sig/Martha Route PRN Reason Start Time Stop Time Status Last Admin Dose Admin Iohexol (Omnipaque 350 Mg/ml) 100 ml 1X ONCE IV 06/10/18 13:30 06/10/18 13:31 DC 06/10/18 13:35 ALLERGIES ALLERGIES: Coded Allergies: cortisone (Verified Allergy, Intermediate, Pt had swelling at injection site, 02/03/15) ROS Review of System 14 point ROS evaluated with pertinent positives noted per HPI PHYSICAL EXAM General: Alert, Oriented X3, Cooperative, No acute distress HEENT: Atraumatic, Mucous membr. moist/pink Lungs: Clear to auscultation, Normal air movement Heart: Regular rate (SR) Abdomen: Soft, No tenderness, Other (obese) Extremities: No cyanosis, Other (1-2+ bilateral LE pitting edema) Skin: No breakdown, No significant lesion Neuro: Normal speech, Sensation intact Psych/Mental Status: Mental status NL, Mood NL MUSCULOSKELETAL: Osteoarthritic changes both hands VITALS VITALS Vital Signs Date Time Temp Pulse Resp B/P (MAP) Pulse Ox O2 Delivery O2 Flow Rate FiO2 06/10/18 12:46 97.9 93 20 145/65 (91) 94 Room Air 97.9 LABS Lab: Laboratory Tests Test 06/10/18 12:50 06/10/18 12:55 White Blood Count 7.4 x10^3/uL (4.0-11.0) Red Blood Count 4.32 x10^6/uL (4.30-5.70) Hemoglobin 10.6 g/dL (13.0-17.5) Hematocrit 33.7 % (39.0-53.0) Mean Corpuscular Volume 78 fL (79-100) Mean Corpuscular Hemoglobin 25 pg (25-35) Mean Corpuscular Hemoglobin Concent 31 g/dL (31-37) Red Cell Distribution Width 17.2 % (11.5-14.5) Platelet Count 239 x10^3/uL (140-400) Neutrophils (%) (Auto) 68 % (31-73) Lymphocytes (%) (Auto) 18 % (24-48) Monocytes (%) (Auto) 12 % (0-9) Eosinophils (%) (Auto) 2 % (0-3) Basophils (%) (Auto) 1 % (0-3) Neutrophils # (Auto) 5.0 x10^3uL (1.8-7.7) Lymphocytes # (Auto) 1.3 x10^3/uL (1.0-4.8) Monocytes # (Auto) 0.9 x10^3/uL (0.0-1.1) Eosinophils # (Auto) 0.1 x10^3/uL (0.0-0.7) Basophils # (Auto) 0.0 x10^3/uL (0.0-0.2) Prothrombin Time 13.5 SEC (11.7-14.0) Prothromb Time International Ratio 1.1 (0.8-1.1) Sodium Level 141 mmol/L (136-145) Potassium Level 4.4 mmol/L (3.5-5.1) Chloride Level 104 mmol/L (98-107) Carbon Dioxide Level 29 mmol/L (21-32) Anion Gap 8 (6-14) Blood Urea Nitrogen 17 mg/dL (8-26) Creatinine 1.2 mg/dL (0.7-1.3) Estimated GFR (Cockcroft-Gault) 61.0 BUN/Creatinine Ratio 14 (6-20) Glucose Level 150 mg/dL (70-99) Calcium Level 8.9 mg/dL (8.5-10.1) Magnesium Level 1.7 mg/dL (1.8-2.4) Total Bilirubin 0.3 mg/dL (0.2-1.0) Aspartate Amino Transf (AST/SGOT) 25 U/L (15-37) Alanine Aminotransferase (ALT/SGPT) 23 U/L (16-63) Alkaline Phosphatase 113 U/L (46-116) XP-Gal-G-Type Natriuretic Peptide 195 pg/mL (0-124) Total Protein 6.4 g/dL (6.4-8.2) Albumin 3.1 g/dL (3.4-5.0) Albumin/Globulin Ratio 0.9 (1.0-1.7) Troponin I Quantitative 0.041 ng/mL (0.000-0.055) ECHOCARDIOGRAM ECHOCARDIOGRAM <Conclusion> The left ventricular systolic function is normal and the ejection fraction is within normal range. ef 55% There is normal LV segmental wall motion. The right ventricle is mildly dilated. Transcatheter aortic valve not well visualized. Grossly no significant stenosis or regurgitation. Technically very difficult study despite contrast use due to body habitus. DATE: 10/01/17 1127 ASSESSMENT/PLAN ASSESSMENT/PLAN 1. Atypical CP; possibly MSK 2. Hx SH-OH with likely associated autonomic neuropathy 3. CAD: 01/2015 CABGx4. clinically stable 4. PPM in situ: dual chamber, St. Ji 5. Post TAVR: 12/2016 6. HTN: No antiHTN meds due to orthostasis. controlled 7. DM2/HLP 8. Morbid obesity/DONALDO; sometimes not compliant with CPAP. 9. COPD 10. Hx of multiple falls. Recommendations 1. discussed wt loss and compliance with diet. 2. Continue with home regimen. 3. May DC if trop is normal. Will arrange for outpt stress test 4. Follow up in office as scheduled in 4 weeks. LENCHO BROCK APRN Jun 10, 2018 15:01
--- NOTE | 2018-06-10 16:00 | EKG ---
[facility] [address] [place] [address] Test Date: 2018-06-10 Test Time: 12:37:47 Pat Name: ISRAEL MOFFETT Department: Room: Gender: M Manager Dish: : 1955 Requested By: CANDIDO RICK Order Number: [id number] Reading MD: Luis Wood Measurements Intervals Johnson Rate: 92 P: 31 AL: 188 QRS: 58 QRSD: 116 T: 24 QT: 402 QTc: 503 Interpretive Statements SINUS RHYTHM QRS(T) CONTOUR ABNORMALITY CONSIDER ANTEROLATERAL MYOCARDIAL DAMAGE PROLONGED QT POSSIBLY ABNORMAL ECG RI6.01 Unconfirmed report Compared to ECG 01/03/2018 09:45:43 Prolonged QT interval now present Right bundle-branch block no longer present Electronically Signed On 06-16-2018 11:32:53 CDT by Luis Wood
== END 2018-06-10 16:59 | disposition home or self-care (01) ==
LOC: ER 12:29
DX: R07.89 Other chest pain (principal); R06.02 Shortness of breath; I10 Essential (primary) hypertension; E11.40 Type 2 diabetes mellitus with diabetic neuropathy, unspecified; E78.00 Pure hypercholesterolemia, unspecified; K21.9 Gastro-esophageal reflux disease without esophagitis; I25.10 Atherosclerotic heart disease of native coronary artery without angina pectoris; F32.9 Major depressive disorder, single episode, unspecified; Z95.5 Presence of coronary angioplasty implant and graft; Z95.0 Presence of cardiac pacemaker; Z88.8 Allergy status to other drugs, medicaments and biological substances
CPT/HCPCS: 36415; 71275; 80053; 83735; 83880; 84484; 85025; 85610; 93005; 99285; Q9967

== ENCOUNTER → 2018-09-12 | Outpatient (CLI) | payer MEDICARE, BC ==
[~2018-09-12] MED LIST changes: +PERFLUTREN PROTEIN-A MICROSPHR 0.22 MG/ML 3 ML VIAL. IV ONE
--- NOTE | 2018-09-12 15:12 | CARD ---
MR#: [id number] Date of Study: 09/12/2018 Ordering Physician: NAHUM SEXTON, Referring Physician: NAHUM SEXTON, Tech: Tanya Quintanilla RDCS APPROVED REPORT EXAM: Two-dimensional and M-mode echocardiogram with Doppler, color Doppler with contrast. Other Information Quality : Technically LimitedHR: 85bpm Rhythm : NSRTechnically limited study due to body habitus, smoking, and CABG. INDICATION AVR Echo Enhancing Agent Indication: Endocardial border delineation Agent/Amount Used: Optison 1mL Surgery/Intervention Status/Post Aortic Valve Replacement: 2D DIMENSIONS RVDd3.0 (2.9-3.5cm)Left Atrium(2D)4.2 (1.6-4.0cm) IVSd1.7 (0.7-1.1cm)Aortic Root(2D)2.8 (2.0-3.7cm) LVDd4.6 (3.9-5.9cm)LVOT Diameter2.1 (1.8-2.4cm) PWd1.7 (0.7-1.1cm)LVDs3.3 (2.5-4.0cm) FS (%) 26.8 %SV50.1 ml LVEF(%)53.0 (>50%) M-Mode DIMENSIONS Left Atrium(MM)4.08 (2.5-4.0cm)Aortic Root3.09 (2.2-3.7cm) Aortic Valve AoV Peak Theodore.215.9cm/sAoV VTI42.3cm AO Peak GR.18.7mmHgLVOT Peak Theodore.108.6cm/s AO Mean GR.11mmHgAVA (VMAX)1.76cm2 TABITHA (VTI)1.80cm2 Mitral Valve MV E Bpqsrwme853.3cm/sMV E Peak Gr.9mmHg MV DECEL [id number] A Vlqykesj275.5cm/s MV E Mean Gr.4mmHgE/A Ratio1.5 Pulmonary Valve PV Peak Hwgpywox662.4cm/s Tricuspid Valve TR P. Lenjuxhj266eh/sRAP TWNGLRWX9hfFm TR Peak Gr.51ycHgTRUD47lnAm LEFT VENTRICLE The left ventricle is normal size. There is moderate concentric left ventricular hypertrophy. The lef t ventricular systolic function is normal and the ejection fraction is within normal range. The Eject ion Fraction is 55-60%. There is grossly normal LV segmental wall motion. Difficult to visualize wall motion despite contrast use. Transmitral Doppler flow pattern is abnormal. RIGHT VENTRICLE The right ventricle is normal size. There is normal right ventricular wall thickness. The right ventr icular systolic function is normal. ATRIA The left atrium is mildly dilated. The right atrium size is normal. The interatrial septum is intact with no evidence for an atrial septal defect or patent foramen ovale as noted on 2-D or Doppler imagi ng. AORTIC VALVE There is a prosthetic aortic valve prosthesis. Doppler and Color Flow revealed no significant aortic regurgitation. Maximum pressure gradient of 19 mmHg and mean pressure gradient of 11 mmHg. There is a prosthetic aortic valve prosthesis. The prosthetic aortic valve is not well visualized. MITRAL VALVE The mitral valve is thickened but opens well. There is no evidence of mitral valve prolapse. There is no mitral valve stenosis. Doppler and Color-flow revealed trace mitral regurgitation. TRICUSPID VALVE The tricuspid valve is normal in structure and function. Doppler and Color Flow revealed trace tricus pid regurgitation. The PA pressure was estimated at 21 mmHg. There is no tricuspid valve prolapse or vegetation. There is no tricuspid valve stenosis. PULMONIC VALVE The pulmonic valve is not well visualized. GREAT VESSELS The aortic root is normal in size. The ascending aorta is normal in size. The IVC was not visualized. PERICARDIAL EFFUSION There is no evidence of significant pericardial effusion. Critical Notification Critical Value: No <Conclusion> The left ventricular systolic function is normal and the ejection fraction is within normal range. Th e Ejection Fraction is 55-60%. There is grossly normal LV segmental wall motion. Difficult to visualize wall motion despite contras t use. There is a prosthetic aortic valve prosthesis. The prosthetic aortic valve is not well visualized. Maximum pressure gradient of 19 mmHg and mean pressure gradient of 11 mmHg. Signed by : Nahum Sexton, Electronically Approved : 09/12/2018 15:12:33
--- NOTE | 2018-09-12 16:45 | RAD ---
MR#: [id number] Date of Study: 09/12/2018 Ordering Physician: NAHUM SEXTON, Referring Physician: NAHUM SEXTON, Tech: Cary Lindsay, JOSÉ MANUEL, RVT, RTR APPROVED REPORT Patient Location: OUT-PATIENT Laterality:Bilateral Indications Carotid Stenosis in last scan Risk Factors Hypertension: Diabetes PAD Doppler Spectral Velocity Analysis Right Left pCCA 122/12 cm/spCCA 153/26 cm/s mCCA 136/17 cm/smCCA 138/23 cm/s dCCA 112/19 cm/sdCCA 114/17 cm/s Bulb 107/15 cm/sBulb 116/22 cm/s ECA 146/19 cm/sECA 222/25 cm/s pICA 173/37 cm/spICA 136/21 cm/s Tao 127/29 cm/smICA 119/30 cm/s dICA 132/30 cm/sdICA 65/17 cm/s Vert. 112/225 cm/sVert. 24/6 cm/s ICA/CCA 1.27ICA/CCA 0.89 Findings Grayscale images of the bilateral carotid vasculature reveals diffuse moderate plaque. The right internal carotid artery likely has a moderate stenosis approximately 50-69% by velocity cri teria. Normal ICA to CCA ratios. The left internal carotid artery also has likely a moderate stenosis in the 50-69% range. [place] grea ter than 70% stenosis involving the left external carotid artery. Normal ICA to CCA ratio. Patent vertebral arteries bilaterally. Critical Notification Critical Value: No <Conclusion> 1. Moderate bilateral internal carotid artery disease. Signed by : Nahum Sexton, Electronically Approved : 09/12/2018 16:45:23
--- NOTE | 2018-09-12 16:53 | RAD ---
MR#: [id number] Date of Study: 09/12/2018 Ordering Physician: NAHUM SEXTON, Referring Physician: NAHUM SEXTON, Tech: Cary Lindsay, JOSÉ MANUEL, RVT, RTR APPROVED REPORT Patient Location: OUT-PATIENT Indications PAD CAD Risk Factors Hypertension Diabetes VELOCITY AND DOPPLER WAVEFORM ANALYSIS RIGHT cm/secWaveformSeverity LEFT cm/secWaveform Severity pCFA 271.0pCFA 192.8 Prof Fem Art. 300.8Prof Fem Art. 98.1 Fem Art Prox. 206.3Fem Art Prox. 175.2 Fem Art Mid. 185.1Fem Art Mid. 258.1 Fem Art Dist. 89.2Fem Art Dist. 213.6 Pop Art(AK) 80.4Pop Art(AK) 95.9 MOLD BREAKER Prox. 49.7PTA Prox. 34.3 MOLD BREAKER Dist. 99.7PTA Dist. 79.9 Per Art Prox. 60.0Per Art Prox. 73.8 MELVINA Prox. 45.1ATA Prox. 21.7 DPA 27DPA 15 Findings Grayscale images demonstrate diffuse plaque. Based on velocities and spectral imaging there is likely at least moderate stenosis involving the rig ht STONE ROUGHER and left STONE ROUGHER. Probable greater than 50% stenosis involving the left SFA. There is three-vessel runoff below the knee with adequate velocities in the right posterior tibial, p eroneal and anterior tibial arteries would likely diffuse myxf-vp-afjkncwc disease. On the left there is likely a greater than 50% stenosis involving the posterior tibial artery and ant erior tibial artery with robust 1 vessel runoff in the form of the peroneal vessel. Critical Notification Critical Value: No <Conclusion> 1. Moderate to severe disease involving the bilateral STONE ROUGHER, and left anterior and posterior tibial ves sels. Signed by : Nahum Sexton, Electronically Approved : 09/12/2018 16:53:26
== END | disposition home or self-care (01) ==
LOC: ECHO 08:28
PROVIDERS: ATTEND Internal Medicine Cardiovascular Disease
DX: I65.23 Occlusion and stenosis of bilateral carotid arteries (principal); I25.10 Atherosclerotic heart disease of native coronary artery without angina pectoris; E11.9 Type 2 diabetes mellitus without complications; I73.9 Peripheral vascular disease, unspecified; I11.9 Hypertensive heart disease without heart failure; Z95.2 Presence of prosthetic heart valve; Z87.891 Personal history of nicotine dependence; Z95.1 Presence of aortocoronary bypass graft
CPT/HCPCS: 93880; 93925; C8929; Q9956

== ENCOUNTER → 2018-09-29 | Outpatient (CLI) | payer MEDICARE, BC ==
[~2018-09-29] MED LIST changes: -PERFLUTREN PROTEIN-A MICROSPHR 0.22 MG/ML 3 ML VIAL. IV ONE
--- NOTE | 2018-09-29 16:30 | KCIC ---
Examination: Lower Extremity Venous Doppler Ultrasound History: Bilateral leg pain, swelling Comparison: None Procedure: Arcos scale, color flow 2D and spectal waveform analysis images are obtained with and without compression in the area of the common femoral vein, superficial femoral vein - femoral vein junction, main femoral vein (superficial femoral vein) and popliteal vein. Veins of the proximal calf are also imaged. Findings: There is normal duplex flow, color flow and compressibility of all visualized vein segments. No evidence of deep venous thrombus is present. Impression: No evidence of DVT in the bilateral lower extremity venous system. Electronically signed by: Matty Zhang MD (09/29/2018 4:27 PM) [email or web address]
== END | disposition home or self-care (01) ==
LOC: KCIC US 15:40
PROVIDERS: ATTEND Internal Medicine
DX: M79.89 Other specified soft tissue disorders (principal); M79.605 Pain in left leg; M79.604 Pain in right leg
CPT/HCPCS: 93970

== ENCOUNTER → 2018-11-12 | Outpatient (CLI) | payer MEDICARE, BC ==
[~2018-11-12] MED LIST changes: -LINE600T PO; +LINE600T37 PO; +LISI1TAB19 PO; -LISI1TAB5 PO
--- NOTE | 2018-11-12 16:42 | RAD ---
MR of the left ankle HISTORY: Achilles tendon pain. TECHNIQUE: Routine multiplanar sequences are obtained. FINDINGS: 1. Complete rupture of the Achilles tendon from the insertion, involving greater than 90 percent of the fibers. There is a very thin irregular remnant of the tendon maintaining continuity. The torn tendon is proximally retracted 3.5 cm. Heterogeneous fluid or hemorrhage within the retrocalcaneal bursa. Moderate size enthesophyte at the calcaneal insertion, with some tendinous calcaneal marrow edema. Peroneal tendons are intact. Mild thickening and signal within the anterior talofibular ligament and calcaneofibular ligament compatible with sprain. Posterior talofibular ligament is intact. The tibiofibular syndesmotic ligaments are intact. Posterior tibial and flexor tendons are intact. No acute medial ligamentous tear. Anterior tibial and extensor tendons are intact. No acute plantar fasciitis. Subtalar joints are mildly degenerative but patent. Tarsal sinus is intact. Talar dome is intact. Diffuse subcutaneous edema around the ankle. IMPRESSION: 1. Near complete rupture of the Achilles tendon from the calcaneal insertion, with 3.5 cm proximal retraction. 2. Anterior talofibular and calcaneofibular ligament sprains. Electronically signed by: Wilfredo Vizcaino MD (11/12/2018 4:39 PM) [facility]
== END | disposition home or self-care (01) ==
LOC: MRI 09:58
PROVIDERS: ATTEND Podiatrist
DX: S93.412A Sprain of calcaneofibular ligament of left ankle, initial encounter (principal); S93.492A Sprain of other ligament of left ankle, initial encounter; S86.012A Strain of left Achilles tendon, initial encounter; X58.XXXA Exposure to other specified factors, initial encounter; Y93.89 Activity, other specified; Y92.89 Other specified places as the place of occurrence of the external cause; Y99.8 Other external cause status
CPT/HCPCS: 73721

== ENCOUNTER 2018-11-19 17:25 | Inpatient (IN) | payer MEDICARE, BC ==
[~2018-11-19] VITALS: Ht 195.6 cm; Wt 166.1 kg
[~2018-11-19 17:25] MED LIST changes: -ACET500T68 PO; +LINE600T12 PO; -LINE600T37 PO; -MIDO5TAB PO; +MIDO5TAB4 PO; +OMEP40CA45 PO; -OMEP40CA5 PO
[2018-11-19 18:31] LABS: CALCIUM 9.6 mg/dL (8.5-10.1); CREATININE 1.7 mg/dL (0.7-1.3); GFR 40.7; POTASSIUM 4.4 mmol/L (3.5-5.1)
[2018-11-19 18:37] LABS: ALBUMIN 3.5 g/dL (3.4-5.0); ALBUMIN/GLOBULIN RATIO 0.8 (1.0-1.7); C-REACTIVE PROTEIN 20.2 mg/L (0-3.3); MAGNESIUM 1.8 mg/dL (1.8-2.4); TOTAL BILIRUBIN 0.4 mg/dL (0.2-1.0); TOTAL PROTEIN 7.7 g/dL (6.4-8.2)
[2018-11-19 19:15] LABS: BASO # 0.1 x10^3/uL (0.0-0.2); BASO % 1 % (0-3); EOS # 0.1 x10^3/uL (0.0-0.7); EOS % 1 % (0-3); HEMATOCRIT 37.7 % (39.0-53.0); HEMOGLOBIN 12.1 g/dL (13.0-17.5); LYMPH # 1.4 x10^3/uL (1.0-4.8); LYMPH % 12 % (24-48); MEAN CORPUSCULAR HEMOGLOBIN 25 pg (25-35); MEAN CORPUSCULAR HGB CONC 32 g/dL (31-37); MEAN CORPUSCULAR VOLUME 79 fL (79-100); MONO # 1.1 x10^3/uL (0.0-1.1); MONO % 10 % (0-9); NEUT # 8.7 x10^3/uL (1.8-7.7); NEUT % 76 % (31-73); PLATELET COUNT 272 x10^3/uL (140-400); RED BLOOD COUNT 4.76 x10^6/uL (4.30-5.70); WHITE BLOOD COUNT 11.3 x10^3/uL (4.0-11.0)
--- NOTE | 2018-11-19 19:17 | PHYS DOC ---
Past Medical History Past Medical History: Arthritis, CAD, Depression, Diabetes-Type II, GERD, High Cholesterol, Hypertension, Other Additional Past Medical Histor: neuropathy,SLEEP APNEA, obesity (DOTTIE HOOKER APRN) Past Surgical History: Angioplasty, Coronary Bypass Surgery, Pacemaker, Other Additional Past Surgical Histo: bilat great toes/knee sx,L elbow,neck fusion,STENT,VALVE,ANAL FISSURE (DOTTIE HOOKER APRN) Alcohol Use: None Drug Use: None (DOTTIE HOOKER APRN) Attending Signature I have participated in the care of this patient and I have reviewed and agree with all pertinent clinical information above including history, exam, and recommendations. (ISABEL WILKERSON MD) Adult General Chief Complaint Chief Complaint: HYPOGLYCEMIA [facility] HPI Patient is a 63 year old male, brought to the emergency department by EMS with complaint of hypoglycemia. Patient called EMS because he has bilateral Achilles tendon ruptures and is unable to walk. He requests to be placed in a rehab fa cility as he is non-ambulatory. Patient states [facility]. He was casted on his left lower extremity for the left ruptured Achilles tendon yesterday. PT states last night when he was going up the steps he felt his right Achilles tendon rupture. Patient states he has not had an MRI to evaluate the rupture yet. He currently rates his pain as 7 out of 10 on pain scale and both of his lower extremities. On EMS arrival patient's blood sugar was 45, he ate a candy bar and his blood sugar malina to 74. Currently, on arrival to the emergency room his blood sugars 76. Patient eyes any other complaints, reports a history of diabetes, high blood pressure, high cholesterol, coronary artery disease, arthritis, depression, and anxiety. (DOTTIE HOOKER APRN) Review of Systems Review of Systems Constitutional: Denies fever or chills [] Eyes: Denies change in visual acuity, redness, or eye pain [] HENT: Denies nasal congestion or sore throat [] Respiratory: Denies cough or shortness of breath [] Cardiovascular: No additional information not addressed in HPI [] GI: Denies abdominal pain, nausea, vomiting, or diarrhea [] : Denies dysuria or hematuria [] Musculoskeletal: Denies back pain; see HPI [] Integument: Denies rash or skin lesions [] Neurologic: Denies headache Endocrine: Denies polyuria or polydipsia; see HPI] Complete systems were reviewed and found to be within normal limits, except as documented in this note. (DOTTIE HOOKER APRN) Allergies Allergies Allergies Coded Allergies Type Severity Reaction Last Updated Verified cortisone Allergy Intermediate Pt had swelling at injection site 02/03/15 Yes (ISABEL WILKERSON MD) Physical Exam Physical Exam Constitutional: Well developed, well nourished, no acute distress, non-toxic appearance, obese. [] HENT: Normocephalic, atraumatic, bilateral external ears normal, oropharynx moist, no oral exudates, nose normal. [] Eyes: PERRLA, EOMI, conjunctiva normal, no discharge. [] Neck: Normal range of motion, no stridor. [] Cardiovascular:Heart rate regular rhythm Lungs & Thorax: Bilateral breath sounds clear to auscultation [] Abdomen: Bowel sounds normal, soft, no tenderness, no masses, no pulsatile masses. [] Skin: Warm, dry, no erythema, no rash. [] Back: No tenderness, no CVA tenderness. [] Extremities: No cyanosis, no edema; LLE in cast, RLE in ortho boot Neurologic: Alert and oriented X 3, no focal deficits noted. [] Psychologic: Affect normal, judgement normal, mood normal. [] (DOTTIE HOOKER APRN) Current Patient Data Vital Signs Vital Signs Date Time Temp Pulse Resp B/P (MAP) Pulse Ox O2 Delivery O2 Flow Rate FiO2 11/19/18 19:05 94 16 138/61 (86) 97 11/19/18 18:21 Room Air 11/19/18 17:30 98.3 98.3 (ISABEL WILKERSON MD) Lab Values Laboratory Tests Test 11/19/18 17:34 11/19/18 18:00 11/19/18 18:42 11/19/18 19:35 Glucose (Fingerstick) 76 mg/dL (70-99) 96 mg/dL (70-99) White Blood Count 11.3 x10^3/uL (4.0-11.0) H Red Blood Count 4.76 x10^6/uL (4.30-5.70) Hemoglobin 12.1 g/dL (13.0-17.5) L Hematocrit 37.7 % (39.0-53.0) L Mean Corpuscular Volume 79 fL (79-100) Mean Corpuscular Hemoglobin 25 pg (25-35) Mean Corpuscular Hemoglobin Concent 32 g/dL (31-37) Red Cell Distribution Width 19.0 % (11.5-14.5) H Platelet Count 272 x10^3/uL (140-400) Neutrophils (%) (Auto) 76 % (31-73) H Lymphocytes (%) (Auto) 12 % (24-48) L Monocytes (%) (Auto) 10 % (0-9) H Eosinophils (%) (Auto) 1 % (0-3) Basophils (%) (Auto) 1 % (0-3) Neutrophils # (Auto) 8.7 x10^3/uL (1.8-7.7) H Lymphocytes # (Auto) 1.4 x10^3/uL (1.0-4.8) Monocytes # (Auto) 1.1 x10^3/uL (0.0-1.1) Eosinophils # (Auto) 0.1 x10^3/uL (0.0-0.7) Basophils # (Auto) 0.1 x10^3/uL (0.0-0.2) Sodium Level 138 mmol/L (136-145) Potassium Level 4.4 mmol/L (3.5-5.1) Chloride Level 99 mmol/L (98-107) Carbon Dioxide Level 33 mmol/L (21-32) H Anion Gap 6 (6-14) Blood Urea Nitrogen 30 mg/dL (8-26) H Creatinine 1.7 mg/dL (0.7-1.3) H Estimated GFR (Cockcroft-Gault) 40.7 BUN/Creatinine Ratio 18 (6-20) Glucose Level 85 mg/dL (70-99) Calcium Level 9.6 mg/dL (8.5-10.1) Magnesium Level 1.8 mg/dL (1.8-2.4) Total Bilirubin 0.4 mg/dL (0.2-1.0) Aspartate Amino Transferase (AST) 28 U/L (15-37) Alanine Aminotransferase (ALT) 23 U/L (16-63) Alkaline Phosphatase 122 U/L (46-116) H C-Reactive Protein, Quantitative 20.2 mg/L (0-3.3) H Total Protein 7.7 g/dL (6.4-8.2) Albumin 3.5 g/dL (3.4-5.0) Albumin/Globulin Ratio 0.8 (1.0-1.7) L Urine Collection Type Unknown Urine Color Yellow Urine Clarity Clear Urine pH 5.0 Urine Specific [place] 1.020 Urine Protein Negative mg/dL (NEG-TRACE) Urine Glucose (UA) Negative mg/dL (NEG) Urine Ketones (Stick) Negative mg/dL (NEG) Urine Blood Negative (NEG) Urine Nitrite Negative (NEG) Urine Bilirubin Negative (NEG) Urine Urobilinogen Dipstick 0.2 mg/dL (0.2 mg/dL) Urine Leukocyte Esterase Negative (NEG) Urine RBC 6-10 /HPF (0-2) Urine WBC 11-20 /HPF (0-4) Urine Squamous Epithelial Cells Mod /LPF Urine Bacteria Moderate /HPF (0-FEW) Urine Hyaline Casts Many /HPF Urine Mucus Marked /LPF Laboratory Tests 11/19/18 18:00 Laboratory Tests 11/19/18 18:00 (ISABEL WILKERSON MD) EKG EKG [] (DOTTIE HOOKER APRN) Radiology/Procedures Radiology/Procedures [] (DOTTIE HOOKER APRN) Course & Med Decision Making Course & Med Decision Making Pertinent Labs and Imaging studies reviewed. (See chart for details) dx: hypoglycemia, inability to ambulate 191- Spoke with Dr. Rincon who is the admitting physician, and care was assumed following discussion of patient. Pt admitted as observation patient for hypoglycemia and inability to ambulate. Patient's vital signs stable, patient remains afebrile, appears nontoxic, respirations even and unlabored. Patient will be admitted to the med/surg floor. Patient's case and plan of care also discussed with Dr. Wilkerson [] (DOTTIE HOOKER APRN) Dragon Disclaimer Dragon Disclaimer This electronic medical record was generated, in whole or in part, using a voice recognition dictation system. (DOTTIE HOOKER APRN) Departure Departure Impression: Primary Impression: Hypoglycemia Additional Impression: Unable to walk Disposition: ADMITTED INPATIENT Admitting Physician: ALLEN Barakat) (DOTTIE HOOKER APRN) Condition: STABLE Referrals: POLLO ARTEAGA MD (PCP) Problem Qualifiers DOTTIE HOOKER APRN Nov 19, 2018 19:17 ISABEL WILKERSON MD Nov 20, 2018 03:00
[2018-11-19 19:42] LABS: BILIRUBIN,URINE NEGATIVE (NEG); CLARITY,URINE CLEAR; COLOR,URINE YELLOW; NITRITE,URINE NEGATIVE (NEG); PROTEIN,URINE NEGATIVE (NEG-TRACE); UROBILINOGEN,URINE 0.2 mg/dL (0.2 mg/dL)
[2018-11-19 19:54] LABS: BACTERIA,URINE MODERATE /HPF (0-FEW); HYALINE CASTS, URINE MANY /HPF; SQUAMOUS EPITHELIAL CELL,UR MOD /LPF
--- NOTE | 2018-11-19 20:45 | NUR ---
The patient, ISRAEL MOFFETT, 63 y/o, M admitted by ARIADNA SAUCEDA III, DO, was given written information regarding hospital policies, unit procedures and contact persons. Valuables were checked and Assessment was complete, will continue to monitor
[2018-11-19 21:15] VITALS: BP 118/43
[2018-11-19] MEDS ORDERED: NITROGLYCERIN SUBLINGUAL 0.4 MG BOTTLE OF 25. SL PRN (22:00)
[2018-11-19] MEDS ORDERED: ACETAMINOPHEN 500 MG TABLET PO PRN ×2 (22:00→22:45)
[2018-11-19] MEDS ORDERED: INSU500I SQ ×3 (22:12)
[2018-11-19 22:56] VITALS: BP 112/40
[2018-11-19] MEDS: ATORVASTATIN CALCIUM 40 MG TABLET. PO SCH (23:02)
[2018-11-19] MEDS: traZODone 50 MG TABLET. PO PRN (23:02)
[2018-11-19] MEDS: oxyCODONE/APAP 10/325 1 TAB TABLET PO PRN (23:03)
--- NOTE | 2018-11-20 00:10 | HP ---
ADMIT DATE: 11/19/2018 CHIEF COMPLAINT: Ankle pain, leg pain, and fall. HISTORY OF PRESENT ILLNESS: The patient is a pleasant 63-year-old male who ruptured his left Achilles tendon in the recent past. Since then, he has had a cast on that leg. He has got some wounds now. Today, he got up and fell and he ruptured his right Achilles tendon. I discussed the case with ER physician. We are going to admit the patient and consult Orthopedics. PAST MEDICAL HISTORY: Hypertension, hyperlipidemia, obesity, previous Achilles tendon rupture on the left, coronary bypass surgery, peripheral vascular disease, diabetes. ALLERGIES: None. FAMILY HISTORY: Diabetes. SOCIAL HISTORY: He is . He does not drink, smoke or take drugs. He is retired. MEDICATIONS: Reviewed, please refer to the MRAD. REVIEW OF SYSTEMS: GENERAL: No history of weight change, weakness or fevers. SKIN: No bruising, hair changes or rashes. EYES: No blurred, double or loss of vision. NOSE AND THROAT: No history of nosebleeds, hoarseness or sore throat. HEART: No history of palpitations, chest pain or shortness of breath on exertion. LUNGS: Denies cough, hemoptysis, wheezing or shortness of breath. GASTROINTESTINAL: Denies changes in appetite, nausea, vomiting, diarrhea or constipation. GENITOURINARY: No history of frequency, urgency, hesitancy or nocturia. NEUROLOGIC: Denies history of numbness, tingling, tremor or weakness. PSYCHIATRIC: No history of panic, anxiety or depression. ENDOCRINE: No history of heat or cold intolerance, polyuria or polydipsia. EXTREMITIES: He complains of leg pain bilaterally. PHYSICAL EXAMINATION: VITALS: Within normal limits and are stable. GENERAL: No apparent distress. Alert and oriented. HEENT: Head is normocephalic, atraumatic, pupils were equally round and reactive to light and accommodation. NECK: Supple, no JVD, no thyromegaly was noted. LUNGS: Clear to auscultation in all lung graves without rhonchi or wheezing. HEART: RRR, S1, S2 present. Peripheral pulses intact, no obvious murmurs were noted. ABDOMEN: Soft, nontender. Positive bowel sounds no organomegaly, normal bowel sounds. EXTREMITIES: He has cast on the left leg and the right foot and ankle are tender to touch. NEUROLOGIC: Normal speech, normal tone. A and O x3, moves all extremities, no obvious focal deficits. PSYCHIATRIC: Normal affect, normal mood. Stable. SKIN: No ulcerations or rashes, good skin turgor, no jaundice. VASCULAR: Good capillary refill, neurovascular bundle appears to be intact. ASSESSMENT AND PLAN: Bilateral Achilles tendon ruptures. The patient has been admitted. We will consult Orthopedics. PT, OT, home meds, and DVT prophylaxis. Full code. [facility] unit evaluation. ARIADNA SAUCEDA DO DR: GISELLE/hailee JOB#: [id number] / [id number]
[2018-11-20 03:00] VITALS: BP 98/41
[2018-11-20 07:15] VITALS: BP 136/52
[2018-11-20] MEDS ORDERED: metFORMIN 850 MG TABLET PO SCH (08:00)
[2018-11-20] MEDS ORDERED: ASPIRIN CHEWABLE 81 MG TABLET. PO SCH (08:00)
--- NOTE | 2018-11-20 08:52 | PDOC ---
PROGRESS NOTES Chief Complaint Chief Complaint A/P: Achilles tendon injury - he felt something snap in his right heel and has pain and weakness on dorsiflexion. No quinolone exposure recently that he knows of Unable to walk - 2/2 cast on LLE and right leg weakness Hypertension - cont meds Hyperlipidemia - statin Obesity - morbid obesity, counseled on weight loss, consider GLP-1 or SGLT-2 H/o Achilles tendon rupture on the left - in cast currently CAD - s/p 4x Coronary bypass surgery 4 years ago Peripheral vascular disease - noted with medical management of bilateral lower extremity disease on non-occlusive studies in 2016 Diabetes - seeing [employer], was recently started on U-500, has had daily hypoglycemic episodes into the 30s and 40s. Will change him back to a lantus BID and lispro TID schedule with sliding scale while in house. Consider SGLT-2 or GLP-1 History of Present Illness History of Present Illness Mr Zazueta is a 63-year-old male w/ PMHx hypertension, hyperlipidemia, obesity, previous Achilles tendon rupture on the left, CAD s/p coronary bypass surgery, peripheral vascular disease, diabetes who has been recovering in a cast from his left achilles rupture who got up and fell and he ruptured his right Achilles tendon. He is unable to walk and will be admitted for further treatment and diagnosis. Vitals Vitals Vital Signs Date Time Temp Pulse Resp B/P (MAP) Pulse Ox O2 Delivery O2 Flow Rate FiO2 11/20/18 07:15 98.1 85 22 136/52 (80) 95 Room Air 98.1 Physical Exam General: Alert, Oriented X3, Cooperative Heart: Regular rate, Normal S1, Normal S2 Lungs: Clear, Other Abdomen: Normal bowel sounds, Soft Extremities: Other (Multiple lesions on bilateral legs) Labs LABS Laboratory Tests Test 11/19/18 17:34 11/19/18 18:00 11/19/18 18:42 11/19/18 19:35 Glucose (Fingerstick) 76 mg/dL (70-99) 96 mg/dL (70-99) White Blood Count 11.3 x10^3/uL (4.0-11.0) Red Blood Count 4.76 x10^6/uL (4.30-5.70) Hemoglobin 12.1 g/dL (13.0-17.5) Hematocrit 37.7 % (39.0-53.0) Mean Corpuscular Volume 79 fL (79-100) Mean Corpuscular Hemoglobin 25 pg (25-35) Mean Corpuscular Hemoglobin Concent 32 g/dL (31-37) Red Cell Distribution Width 19.0 % (11.5-14.5) Platelet Count 272 x10^3/uL (140-400) Neutrophils (%) (Auto) 76 % (31-73) Lymphocytes (%) (Auto) 12 % (24-48) Monocytes (%) (Auto) 10 % (0-9) Eosinophils (%) (Auto) 1 % (0-3) Basophils (%) (Auto) 1 % (0-3) Neutrophils # (Auto) 8.7 x10^3/uL (1.8-7.7) Lymphocytes # (Auto) 1.4 x10^3/uL (1.0-4.8) Monocytes # (Auto) 1.1 x10^3/uL (0.0-1.1) Eosinophils # (Auto) 0.1 x10^3/uL (0.0-0.7) Basophils # (Auto) 0.1 x10^3/uL (0.0-0.2) Sodium Level 138 mmol/L (136-145) Potassium Level 4.4 mmol/L (3.5-5.1) Chloride Level 99 mmol/L (98-107) Carbon Dioxide Level 33 mmol/L (21-32) Anion Gap 6 (6-14) Blood Urea Nitrogen 30 mg/dL (8-26) Creatinine 1.7 mg/dL (0.7-1.3) Estimated GFR (Cockcroft-Gault) 40.7 BUN/Creatinine Ratio 18 (6-20) Glucose Level 85 mg/dL (70-99) Calcium Level 9.6 mg/dL (8.5-10.1) Magnesium Level 1.8 mg/dL (1.8-2.4) Total Bilirubin 0.4 mg/dL (0.2-1.0) Aspartate Amino Transf (AST/SGOT) 28 U/L (15-37) Alanine Aminotransferase (ALT/SGPT) 23 U/L (16-63) Alkaline Phosphatase 122 U/L (46-116) C-Reactive Protein, Quantitative 20.2 mg/L (0-3.3) Total Protein 7.7 g/dL (6.4-8.2) Albumin 3.5 g/dL (3.4-5.0) Albumin/Globulin Ratio 0.8 (1.0-1.7) Urine Collection Type Unknown Urine Color Yellow Urine Clarity Clear Urine pH 5.0 Urine Specific Taylor 1.020 Urine Protein Negative mg/dL (NEG-TRACE) Urine Glucose (UA) Negative mg/dL (NEG) Urine Ketones (Stick) Negative mg/dL (NEG) Urine Blood Negative (NEG) Urine Nitrite Negative (NEG) Urine Bilirubin Negative (NEG) Urine Urobilinogen Dipstick 0.2 mg/dL (0.2 mg/dL) Urine Leukocyte Esterase Negative (NEG) Urine RBC 6-10 /HPF (0-2) Urine WBC 11-20 /HPF (0-4) Urine Squamous Epithelial Cells Mod /LPF Urine Bacteria Moderate /HPF (0-FEW) Urine Hyaline Casts Many /HPF Urine Mucus Marked /LPF Test 11/19/18 22:49 11/20/18 07:09 Glucose (Fingerstick) 159 mg/dL (70-99) 188 mg/dL (70-99) Assessment and Plan Assessmemt and Plan Problems Medical Problems: (1) Hypoglycemia Status: Acute (2) Unable to walk Status: Acute Comment Review of Relevant I have reviewed the following items billie (where applicable) has been applied. Labs Laboratory Tests Test 11/19/18 17:34 11/19/18 18:00 11/19/18 18:42 11/19/18 19:35 Glucose (Fingerstick) 76 mg/dL (70-99) 96 mg/dL (70-99) White Blood Count 11.3 x10^3/uL (4.0-11.0) Red Blood Count 4.76 x10^6/uL (4.30-5.70) Hemoglobin 12.1 g/dL (13.0-17.5) Hematocrit 37.7 % (39.0-53.0) Mean Corpuscular Volume 79 fL (79-100) Mean Corpuscular Hemoglobin 25 pg (25-35) Mean Corpuscular Hemoglobin Concent 32 g/dL (31-37) Red Cell Distribution Width 19.0 % (11.5-14.5) Platelet Count 272 x10^3/uL (140-400) Neutrophils (%) (Auto) 76 % (31-73) Lymphocytes (%) (Auto) 12 % (24-48) Monocytes (%) (Auto) 10 % (0-9) Eosinophils (%) (Auto) 1 % (0-3) Basophils (%) (Auto) 1 % (0-3) Neutrophils # (Auto) 8.7 x10^3/uL (1.8-7.7) Lymphocytes # (Auto) 1.4 x10^3/uL (1.0-4.8) Monocytes # (Auto) 1.1 x10^3/uL (0.0-1.1) Eosinophils # (Auto) 0.1 x10^3/uL (0.0-0.7) Basophils # (Auto) 0.1 x10^3/uL (0.0-0.2) Sodium Level 138 mmol/L (136-145) Potassium Level 4.4 mmol/L (3.5-5.1) Chloride Level 99 mmol/L (98-107) Carbon Dioxide Level 33 mmol/L (21-32) Anion Gap 6 (6-14) Blood Urea Nitrogen 30 mg/dL (8-26) Creatinine 1.7 mg/dL (0.7-1.3) Estimated GFR (Cockcroft-Gault) 40.7 BUN/Creatinine Ratio 18 (6-20) Glucose Level 85 mg/dL (70-99) Calcium Level 9.6 mg/dL (8.5-10.1) Magnesium Level 1.8 mg/dL (1.8-2.4) Total Bilirubin 0.4 mg/dL (0.2-1.0) Aspartate Amino Transf (AST/SGOT) 28 U/L (15-37) Alanine Aminotransferase (ALT/SGPT) 23 U/L (16-63) Alkaline Phosphatase 122 U/L (46-116) C-Reactive Protein, Quantitative 20.2 mg/L (0-3.3) Total Protein 7.7 g/dL (6.4-8.2) Albumin 3.5 g/dL (3.4-5.0) Albumin/Globulin Ratio 0.8 (1.0-1.7) Urine Collection Type Unknown Urine Color Yellow Urine Clarity Clear Urine pH 5.0 Urine Specific Taylor 1.020 Urine Protein Negative mg/dL (NEG-TRACE) Urine Glucose (UA) Negative mg/dL (NEG) Urine Ketones (Stick) Negative mg/dL (NEG) Urine Blood Negative (NEG) Urine Nitrite Negative (NEG) Urine Bilirubin Negative (NEG) Urine Urobilinogen Dipstick 0.2 mg/dL (0.2 mg/dL) Urine Leukocyte Esterase Negative (NEG) Urine RBC 6-10 /HPF (0-2) Urine WBC 11-20 /HPF (0-4) Urine Squamous Epithelial Cells Mod /LPF Urine Bacteria Moderate /HPF (0-FEW) Urine Hyaline Casts Many /HPF Urine Mucus Marked /LPF Test 11/19/18 22:49 11/20/18 07:09 Glucose (Fingerstick) 159 mg/dL (70-99) 188 mg/dL (70-99) Laboratory Tests Test 11/19/18 17:34 11/19/18 18:00 11/19/18 18:42 11/19/18 19:35 Glucose (Fingerstick) 76 mg/dL (70-99) 96 mg/dL (70-99) White Blood Count 11.3 x10^3/uL (4.0-11.0) Red Blood Count 4.76 x10^6/uL (4.30-5.70) Hemoglobin 12.1 g/dL (13.0-17.5) Hematocrit 37.7 % (39.0-53.0) Mean Corpuscular Volume 79 fL (79-100) Mean Corpuscular Hemoglobin 25 pg (25-35) Mean Corpuscular Hemoglobin Concent 32 g/dL (31-37) Red Cell Distribution Width 19.0 % (11.5-14.5) Platelet Count 272 x10^3/uL (140-400) Neutrophils (%) (Auto) 76 % (31-73) Lymphocytes (%) (Auto) 12 % (24-48) Monocytes (%) (Auto) 10 % (0-9) Eosinophils (%) (Auto) 1 % (0-3) Basophils (%) (Auto) 1 % (0-3) Neutrophils # (Auto) 8.7 x10^3/uL (1.8-7.7) Lymphocytes # (Auto) 1.4 x10^3/uL (1.0-4.8) Monocytes # (Auto) 1.1 x10^3/uL (0.0-1.1) Eosinophils # (Auto) 0.1 x10^3/uL (0.0-0.7) Basophils # (Auto) 0.1 x10^3/uL (0.0-0.2) Sodium Level 138 mmol/L (136-145) Potassium Level 4.4 mmol/L (3.5-5.1) Chloride Level 99 mmol/L (98-107) Carbon Dioxide Level 33 mmol/L (21-32) Anion Gap 6 (6-14) Blood Urea Nitrogen 30 mg/dL (8-26) Creatinine 1.7 mg/dL (0.7-1.3) Estimated GFR (Cockcroft-Gault) 40.7 BUN/Creatinine Ratio 18 (6-20) Glucose Level 85 mg/dL (70-99) Calcium Level 9.6 mg/dL (8.5-10.1) Magnesium Level 1.8 mg/dL (1.8-2.4) Total Bilirubin 0.4 mg/dL (0.2-1.0) Aspartate Amino Transf (AST/SGOT) 28 U/L (15-37) Alanine Aminotransferase (ALT/SGPT) 23 U/L (16-63) Alkaline Phosphatase 122 U/L (46-116) C-Reactive Protein, Quantitative 20.2 mg/L (0-3.3) Total Protein 7.7 g/dL (6.4-8.2) Albumin 3.5 g/dL (3.4-5.0) Albumin/Globulin Ratio 0.8 (1.0-1.7) Urine Collection Type Unknown Urine Color Yellow Urine Clarity Clear Urine pH 5.0 Urine Specific Taylor 1.020 Urine Protein Negative mg/dL (NEG-TRACE) Urine Glucose (UA) Negative mg/dL (NEG) Urine Ketones (Stick) Negative mg/dL (NEG) Urine Blood Negative (NEG) Urine Nitrite Negative (NEG) Urine Bilirubin Negative (NEG) Urine Urobilinogen Dipstick 0.2 mg/dL (0.2 mg/dL) Urine Leukocyte Esterase Negative (NEG) Urine RBC 6-10 /HPF (0-2) Urine WBC 11-20 /HPF (0-4) Urine Squamous Epithelial Cells Mod /LPF Urine Bacteria Moderate /HPF (0-FEW) Urine Hyaline Casts Many /HPF Urine Mucus Marked /LPF Test 11/19/18 22:49 11/20/18 07:09 Glucose (Fingerstick) 159 mg/dL (70-99) 188 mg/dL (70-99) Medications Current Medications Acetaminophen (Tylenol) 500 mg Q6HRS PRN PO PAIN/FEVER; Start 11/19/18 at 22:00 Aspirin (Children'S Aspirin) 81 mg DAILYWBKFT PO ; Start 11/20/18 at 08:00 Vitamin D (Vitamin D3) 1,000 unit DAILY PO ; Start 11/20/18 at 09:00 Citalopram Hydrobromide (CeleXA) 20 mg DAILY PO ; Start 11/20/18 at 09:00 Clopidogrel Bisulfate (Plavix) 75 mg DAILY PO ; Start 11/20/18 at 09:00 Diclofenac Sodium (Voltaren) 1 clair BID TP ; Start 11/20/18 at 09:00 Docusate Sodium (Colace) 100 mg BID PO ; Start 11/20/18 at 09:00 Ergocalciferol (Vitamin D2) 50,000 unit QFR PO ; Start 11/21/18 at 16:00 Lisinopril (Prinivil) 5 mg DAILY PO ; Start 11/20/18 at 09:00 Metformin HCl (Glucophage) 850 mg BIDWMEALS PO ; Start 11/20/18 at 08:00 Metoprolol Succinate (Toprol Xl) 25 mg DAILY PO ; Start 11/20/18 at 09:00 Midodrine (Proamatine) 5 mg DAILY PO ; Start 11/20/18 at 09:00 Nitroglycerin (Nitrostat) 0.4 mg PRN Q5MIN PRN SL CHEST PAIN; Start 11/19/18 at 22:00 Oxycodone/ Acetaminophen (Percocet 10/325) 1 tab PRN Q8HRS PRN PO PAIN Last administered on 11/19/18at 23:03; Start 11/19/18 at 22:00 Atorvastatin Calcium (Lipitor) 80 mg HS PO Last administered on 11/19/18at 23:02; Start 11/19/18 at 22:45 Bupropion HCl (Wellbutrin Sr) 300 mg DAILY PO ; Start 11/20/18 at 09:00 Fluoxetine HCl (PROzac) 40 mg DAILY PO ; Start 11/20/18 at 09:00 Non-Formulary Medication (Tramadol Hcl/ Acetaminophen (Tramadol-Acetaminophn 37.5-325)) mild pain QHS PO ; Start 11/20/18 at 21:00; Status UNV Trazodone HCl (Desyrel) 150 mg PRN QHS PRN PO INSOMNIA Last administered on 11/19/18at 23:02; Start 11/19/18 at 22:00 Triamcinolone Acetonide (Kenalog 0.1%) 1 clair BID TP ; Start 11/20/18 at 09:00 Acetaminophen (Tylenol) 1,000 mg Q6HRS PRN PO PAIN/FEVER; Start 11/19/18 at 22:45 Tramadol HCl (Ultram) 37.5 mg QHS PO ; Start 11/20/18 at 21:00 Acetaminophen (Tylenol) 325 mg QHS PO ; Start 11/20/18 at 21:00 Tramadol HCl (Ultram) 37.5 mg PRN QHS PRN PO PAIN, IF 2ND DOSE IS NEEDED; Start 11/20/18 at 21:00 Acetaminophen (Tylenol) 325 mg PRN QHS PRN PO PAIN,IF 2ND DOSE IS NEEDED; Start 11/20/18 at 21:00 Active Scripts Active Reported Humulin R U-500 Kwikpen (Insulin Regular, Human) 500 Unit/1 Ml Insuln.pen 90 Unit SQ DAILYWSUP Humulin R U-500 Kwikpen (Insulin Regular, Human) 500 Unit/1 Ml Insuln.pen 90 Unit SQ DAILYWLUN Humulin R U-500 Kwikpen (Insulin Regular, Human) 500 Unit/1 Ml Insuln.pen 110 Units SQ DAILYWBKFT Midodrine Hcl 5 Mg Tablet 5 Mg PO DAILY Citalopram Hbr (Citalopram Hydrobromide) 20 Mg Tablet 1 Tab PO DAILY Levemir (Insulin Detemir) 100 Unit/1 Ml Vial 100 Unit SQ BID Vitamin D3 (Cholecalciferol (Vitamin D3)) 1,000 Unit Tablet 1,000 Unit PO DAILY Vitamin B12 (Cyanocobalamin (Vitamin B-12)) 2,500 Mcg Tablet 1,000 Mcg PO Triamcinolone Acetonide 0.5% Oint (Triamcinolone Acetonide) 15 Gm Oint...g. 1 A pp TP BID Tramadol-Acetaminophn 37.5-325 (Tramadol Hcl/Acetaminophen) 1 Each Tablet 1-2 Tab PO QHS Percocet 10-325 Mg Tablet (Oxycodone/Acetaminophen) 1 Each Tablet 1 Tab PO PRN Q8HRS Novolog Flexpen (Insulin Aspart) 100 Unit/1 Ml Insuln.pen 15 Unit SQ PRN Novolog Flexpen (Insulin Aspart) 100 Unit/1 Ml Insuln.pen 30 Unit SQ TIDWMEALS NITROGLYCERIN SubLingual (Nitroglycerin) 0.4 Mg Tab.subl 0.4 Mg SL PRN Q5MIN PRN Fluoxetine Hcl 40 Mg Capsule 40 Mg PO DAILY Vitamin D2 (Ergocalciferol (Vitamin D2)) 50,000 Unit Capsule 50,000 Unit PO QFR Docusate Sodium 100 Mg Capsule 100 Mg PO BID Voltaren (Diclofenac Sodium) 100 Gm Gel..gram. 1 Gm TP BID Atorvastatin Calcium 80 Mg Tablet 80 Mg PO HS Clopidogrel (Clopidogrel Bisulfate) 75 Mg Tablet 75 Mg PO DAILY Acetaminophen 500 Mg Tablet 1-2 Tab PO Q6HRS Lisinopril 5 Mg Tablet 1 Tab PO DAILY Aspirin 81 Mg Tab.chew 1 Tab PO DAILY Metoprolol Succinate ( Xl ) (Metoprolol Succinate) 25 Mg Tab.er.24h 1 Tab PO DAILY Trazodone Hcl 150 Mg Tablet 1 Tab PO QHS PRN Bupropion Hcl Sr (Bupropion Hcl) 150 Mg Tablet.er 300 Mg PO DAILY Metformin Hcl 850 Mg Tablet 850 Mg PO BID hold med until 11/23/15 Vitals/I & O Vital Sign - Last 24 Hours 11/19/18 11/19/18 11/19/18 11/19/18 17:30 18:21 19:05 20:05 Temp 98.3 98.3 Pulse 89 94 94 90 Resp 20 18 16 16 B/P (MAP) 107/56 (73) 130/57 (81) 138/61 (86) 112/57 (75) Pulse Ox 94 96 97 96 O2 Delivery Room Air Room Air Room Air 11/19/18 11/19/18 11/19/18 11/19/18 21:15 22:56 23:03 23:40 Temp 98.6 98.6 98.6 98.6 Pulse 91 96 Resp 18 18 B/P (MAP) 118/43 (68) 112/40 (64) Pulse Ox 97 96 98 O2 Delivery Room Air Room Air BiPAP/CPAP 11/20/18 11/20/18 11/20/18 11/20/18 02:40 02:45 03:00 05:50 Resp 16 B/P (MAP) 98/41 (60) Pulse Ox 98 O2 Delivery Room Air BiPAP/CPAP BiPAP/CPAP 11/20/18 07:15 Temp 98.1 98.1 Pulse 85 Resp 22 B/P (MAP) 136/52 (80) Pulse Ox 95 O2 Delivery Room Air Intake and Output 11/19/18 11/19/18 11/20/18 15:00 23:00 07:00 Intake Total 0 ml 700 ml Balance 0 ml 700 ml AMEYA CHOI MD Nov 20, 2018 08:52
[2018-11-20] MEDS ORDERED: TRIAMCINOLONE ACETONIDE 0.1% TOPICAL OINTMENT 15GM TUBE. TP SCH (09:00)
[2018-11-20] MEDS ORDERED: DICLOFENAC SODIUM 1% TOPICAL GEL 100GM TUBE. TP SCH (09:00)
[2018-11-20] MEDS ORDERED: buPROPion SR 150 MG TABLET.SA PO SCH (09:00)
[2018-11-20] MEDS ORDERED: FLUoxetine HCL 20 MG CAPSULE PO SCH (09:00)
[2018-11-20] MEDS ORDERED: CLOPIDOGREL BISULFATE 75 MG TABLET PO SCH (09:00)
[2018-11-20] MEDS ORDERED: METOPROLOL SUCC 24HR ER 25 MG TAB.ER.24H. PO SCH (09:00)
[2018-11-20] MEDS ORDERED: MIDODRINE 5 MG TABLET PO SCH (09:00)
[2018-11-20] MEDS: oxyCODONE/APAP 10/325 1 TAB TABLET PO PRN ×2 (09:03→23:31)
[2018-11-20] MEDS ORDERED: FURO80TA72 PO (09:28)
[2018-11-20] MEDS ORDERED: INSULIN LISPRO 300 UNITS/3 ML VIAL. SQ PRN (09:30)
[2018-11-20] MEDS ORDERED: INSULIN GLARGINE SYRINGE. SQ SCH (10:00)
[2018-11-20] MEDS: DOCUSATE SODIUM 100 MG CAPSULE. PO SCH ×2 (10:06→20:37)
[2018-11-20] MEDS: buPROPion SR 150 MG TABLET.SA PO SCH ×2 (10:06→20:37)
[2018-11-20] MEDS: FUROSEMIDE 80 MG TABLET. PO SCH (10:06)
[2018-11-20] MEDS: metFORMIN 850 MG TABLET PO SCH ×3 (10:07→17:18)
[2018-11-20] MEDS: LISINOPRIL 5 MG TABLET. PO SCH (10:07)
[2018-11-20] MEDS: CITALOPRAM 20 MG TABLET. PO SCH (10:07)
[2018-11-20] MEDS: CHOLECALCIFEROL (VITAMIN D3) 1,000 UNIT TABLET PO SCH (10:07)
[2018-11-20] MEDS: INSULIN LISPRO 300 UNITS/3 ML VIAL. SQ SCH ×3 (10:13→16:30)
[2018-11-20 11:09] VITALS: BP 137/44
[2018-11-20] MEDS ORDERED: ACETAMINOPHEN 500 MG TABLET PO PRN ×2 (13:00)
[2018-11-20 15:12] VITALS: BP 117/43
[2018-11-20] MEDS ORDERED: IV NORMAL SALINE 500ML BAG 500 ML IV ONE (18:45)
--- NOTE | 2018-11-20 18:48 | NUR ---
Patient complaints of feeling "dizzy" VS taken BP 91/35 HR 83 O2 97 BS 98. MD Helder notified new orders received. Will continue to monitor.
[2018-11-20 19:00] VITALS: BP 103/66
[2018-11-20] MEDS: ACETAMINOPHEN 325 MG TABLET. PO SCH (20:36)
[2018-11-20] MEDS: traMADol 50 MG TABLET PO SCH (20:37)
[2018-11-20] MEDS: ATORVASTATIN CALCIUM 40 MG TABLET. PO SCH (20:37)
[2018-11-20] MEDS: INSULIN GLARGINE SYRINGE. SQ SCH (20:45)
[2018-11-20] MEDS ORDERED: traMADol 50 MG TABLET PO PRN (21:00)
[2018-11-20] MEDS ORDERED: ACETAMINOPHEN 325 MG TABLET. PO PRN (21:00)
[2018-11-20] MEDS ORDERED: ACETAMINOPHEN PO SCH (21:00)
[2018-11-20] MEDS ORDERED: TRAMADOL HCL PO SCH (21:00)
[2018-11-20 23:00] VITALS: BP 114/57
[2018-11-20] MEDS: traZODone 50 MG TABLET. PO PRN (23:30)
[2018-11-21 03:00] VITALS: BP 144/52
[2018-11-21 07:00] VITALS: BP 140/45
--- NOTE | 2018-11-21 08:49 | PDOC2 ---
CONSULT Date of Consult Date of Consult DATE: 11/21/18 TIME: 08:45 Reason for Consult Reason for Consult: Bilateral Achilles ruptures Referring Physician Referring Physician: Mckenzie Identification/Chief Complaint Chief Complaint Bilateral ankle pain Source Source: Chart review, Patient History of Present Illness Reason for Visit: Patient tells me that about a week and a half ago he felt acute onset of pain and difficulty plantar flexing his left ankle he was seen by an outside orthopedic clinic and placed into a cast. After that, he was walking up the stairs and felt same thing happen on the right side. He was placed into a cam boot for this. He is currently complaining of bilateral ankle pain, tolerable at rest but worse with any attempted movement or ambulation. He was admitted for inability to ambulate and get into his house, negotiating stairs. He has had chronic wounds on his lower extremities in the past as well. Past Medical History Cardiovascular: CAD, HTN, Syncope, Hyperlipidemia, Aortic stenosis, Other Pulmonary: COPD, Other CENTRAL NERVOUS SYSTEM: Periperal neuropathy GI: GERD Hepatobiliary: Cholelithiasis Psych: Depression Musculoskeletal: low back pain, Osteoarthritis Rheumatologic: Fibromyalgia Endocrine: Diabetes Past Surgical History Past Surgical History: Pacemaker, Appendectomy, Arthroscopy, Cholecystectomy, CABG, Other Family History Family History: Heart Disease Social History ALCOHOL: none Drugs: None Lives: Homeless Current Problem List Problem List Problems Medical Problems: (1) Hypoglycemia Status: Acute (2) Unable to walk Status: Acute Current Medications Current Medications Current Medications Acetaminophen (Tylenol) 500 mg Q6HRS PRN PO PAIN/FEVER; Start 11/19/18 at 22:00; Stop 11/20/18 at 12:48; Status DC Aspirin (Children'S Aspirin) 81 mg DAILYWBKFT PO ; Start 11/20/18 at 08:00; Stop 11/20/18 at 09:35; Status DC Vitamin D (Vitamin D3) 1,000 unit DAILY PO Last administered on 11/20/18at 10:07; Start 11/20/18 at 09:00 Citalopram Hydrobromide (CeleXA) 20 mg DAILY PO Last administered on 11/20/18at 10:07; Start 11/20/18 at 09:00 Clopidogrel Bisulfate (Plavix) 75 mg DAILY PO ; Start 11/20/18 at 09:00; Stop 11/20/18 at 09:35; Status DC Diclofenac Sodium (Voltaren) 1 clair BID TP ; Start 11/20/18 at 09:00; Stop 11/20/18 at 09:35; Status DC Docusate Sodium (Colace) 100 mg BID PO Last administered on 11/20/18at 20:37; Start 11/20/18 at 09:00 Ergocalciferol (Vitamin D2) 50,000 unit QFR PO ; Start 11/21/18 at 16:00 Lisinopril (Prinivil) 5 mg DAILY PO Last administered on 11/20/18at 10:07; St art 11/20/18 at 09:00 Metformin HCl (Glucophage) 850 mg BIDWMEALS PO ; Start 11/20/18 at 08:00; Stop 11/20/18 at 09:35; Status DC Metoprolol Succinate (Toprol Xl) 25 mg DAILY PO ; Start 11/20/18 at 09:00; Stop 11/20/18 at 09:35; Status DC Midodrine (Proamatine) 5 mg DAILY PO ; Start 11/20/18 at 09:00; Stop 11/20/18 at 09:35; Status DC Nitroglycerin (Nitrostat) 0.4 mg PRN Q5MIN PRN SL CHEST PAIN; Start 11/19/18 at 22:00 Oxycodone/ Acetaminophen (Percocet 10/325) 1 tab PRN Q8HRS PRN PO PAIN Last administered on 11/20/18at 23:31; Start 11/19/18 at 22:00 Atorvastatin Calcium (Lipitor) 80 mg HS PO Last administered on 11/20/18at 20:37 ; Start 11/19/18 at 22:45 Bupropion HCl (Wellbutrin Sr) 300 mg DAILY PO ; Start 11/20/18 at 09:00; Stop 11/20/18 at 09:35; Status DC Fluoxetine HCl (PROzac) 40 mg DAILY PO ; Start 11/20/18 at 09:00; Stop 11/20/18 at 09:35; Status DC Non-Formulary Medication (Tramadol Hcl/ Acetaminophen (Tramadol-Acetaminophn 37.5-325)) mild pain QHS PO ; Start 11/20/18 at 21:00; Status UNV Trazodone HCl (Desyrel) 150 mg PRN QHS PRN PO INSOMNIA Last administered on 11/20/18at 23:30; Start 11/19/18 at 22:00 Triamcinolone Acetonide (Kenalog 0.1%) 1 clair BID TP ; Start 11/20/18 at 09:00; Stop 11/20/18 at 09:35; Status DC Acetaminophen (Tylenol) 1,000 mg Q6HRS PRN PO PAIN/FEVER; Start 11/19/18 at 22:45; Stop 11/20/18 at 12:49; Status DC Tramadol HCl (Ultram) 37.5 mg QHS PO Last administered on 11/20/18at 20:37; Start 11/20/18 at 21:00 Acetaminophen (Tylenol) 325 mg QHS PO Last administered on 11/20/18at 20:36; Start 11/20/18 at 21:00 Tramadol HCl (Ultram) 37.5 mg PRN QHS PRN PO PAIN, IF 2ND DOSE IS NEEDED; Start 11/20/18 at 21:00 Acetaminophen (Tylenol) 325 mg PRN QHS PRN PO PAIN,IF 2ND DOSE IS NEEDED; Start 11/20/18 at 21:00 Bupropion HCl (Wellbutrin Sr) 150 mg BID PO Last administered on 11/20/18 20:37; Start 11/20/18 at 10:00 Metformin HCl (Glucophage) 850 mg TIDWMEALS PO Last administered on 11/20/18 17:18; Start 11/20/18 at 09:30 Furosemide (Lasix) 80 mg DAILY PO Last administered on 11/20/18 10:06; Start 11/20/18 at 10:00 Insulin Glargine (Lantus Syringe) 50 unit BID SQ Last administered on 11/20/18 12:39; Start 11/20/18 at 10:00; Stop 11/20/18 at 18:37; Status DC Insulin Human Lispro (HumaLOG) 30 units TIDAC SQ Last administered on 11/20/18at 12:39; Start 11/20/18 at 09:30; Stop 11/20/18 at 18:37; Status DC Insulin Human Lispro (HumaLOG) 15 units PRN TID PRN SQ WITH SNACKS; Start 11/20/18 at 09:30 Acetaminophen (Tylenol) 500 mg PRN Q6HRS PRN PO PAIN/FEVER; Start 11/20/18 at 13:00 Acetaminophen (Tylenol) 1,000 mg PRN Q6HRS PRN PO PAIN/FEVER; Start 11/20/18 at 13:00 Insulin Glargine (Lantus Syringe) 40 unit BID SQ Last administered on 11/20/18at 20:45; Start 11/20/18 at 21:00 Insulin Human Lispro (HumaLOG) 25 units TIDAC SQ ; Start 11/21/18 at 07:30 Sodium Chloride 500 ml @ 500 mls/hr 1X ONCE IV Last administered on 11/20/18at 20:24; Start 11/20/18 at 18:45; Stop 11/20/18 at 19:44; Status DC Active Scripts Active Reported Lasix (Furosemide) 80 Mg Tablet 1 Tab PO DAILY Humulin R U-500 Kwikpen (Insulin Regular, Human) 500 Unit/1 Ml Insuln.pen 90 Unit SQ DAILYWSUP Humulin R U-500 Kwikpen (Insulin Regular, Human) 500 Unit/1 Ml Insuln.pen 90 Unit SQ DAILYWLUN Humulin R U-500 Kwikpen (Insulin Regular, Human) 500 Unit/1 Ml Insuln.pen 110 Units SQ DAILYWBKFT Citalopram Hbr (Citalopram Hydrobromide) 20 Mg Tablet 1 Tab PO DAILY Levemir (Insulin Detemir) 100 Unit/1 Ml Vial 50 Unit SQ BID Percocet 10-325 Mg Tablet (Oxycodone/Acetaminophen) 1 Each Tablet 1 Tab PO PRN Q8HRS Novolog Flexpen (Insulin Aspart) 100 Unit/1 Ml Insuln.pen 15 Unit SQ PRN Novolog Flexpen (Insulin Aspart) 100 Unit/1 Ml Insuln.pen 30 Unit SQ TIDWMEALS NITROGLYCERIN SubLingual (Nitroglycerin) 0.4 Mg Tab.subl 0.4 Mg SL PRN Q5MIN PRN Fluoxetine Hcl 40 Mg Capsule 40 Mg PO DAILY Docusate Sodium 100 Mg Capsule 100 Mg PO BID Atorvastatin Calcium 80 Mg Tablet 80 Mg PO HS Acetaminophen 500 Mg Tablet 1-2 Tab PO Q6HRS Lisinopril 5 Mg Tablet 1 Tab PO DAILY Trazodone Hcl 150 Mg Tablet 1 Tab PO QHS PRN Bupropion Hcl Sr (Bupropion Hcl) 150 Mg Tablet.er 150 Mg PO BID Metformin Hcl 850 Mg Tablet 850 Mg PO TID hold med until 11/23/15 Allergies Allergies: Coded Allergies: cortisone (Verified Allergy, Intermediate, Pt had swelling at injection site, 02/03/15) ROS General: No: Chills, Night Sweats, Fatigue, Malaise, Appetite, Other PSYCHOLOGICAL ROS: No: Anxiety, Behavioral Disorder, Concentration difficultie, Decreased libido, Depression, Disorientation, Hallucinations, Hostility, Irritablity, Memory difficulties, Mood Swings, Obsessive thoughts, Physical abuse, Sexual abuse, Sleep disturbances, Suicidal ideation, Other Eyes: No Blurry vision, No Decreased vision, No Double vision, No Dry eyes, No Excessive tearing, No Eye Pain, No Itchy Eyes, No Loss of vision, No Beau tophobia, No Scotomata, No Uses contacts, No Uses glasses, No Other HEENT: No: Heacaches, Visual Changes, Hearing change, Nasal congestion, Nasal discharge, Oral lesions, Sinus pain, Sore Throat, Epistaxis, Sneezing, Snoring, Tinnitus, Vertigo, Vocal changes, Other ALLERGY AND IMMUNOLOGY: No: Hives, Insect Bite Sensitivity, Itchy/Watery Eyes, Nasal Congestion, Post Nasal Drip, Seasonal Allergies, Other Hematological and Lymphatic: No: Bleeding Problems, Blood Clots, Blood Transfusions, Brusing, Night Sweats, Pallor, Swollen Lymph Nodes, Other ENDOCRINE: No: Breast Changes, Galactorrhea, Hair Pattern Changes, Hot Flashes, Malaise/lethargy, Mood Swings, Palpitations, Polydipsia/polyuria, Skin Changes, Temperature Intolerance, Unexpected Weight Changes, Other Respiratory: No: Cough, Hemoptysis, Orthopnea, Pleuritic Pain, Shortness of breath, SOB with excertion, Sputum Changes, Stridor, Tachypnea, Wheezing, Other Cardiovascular: No Chest Pain, No Palpitations, No Orthopnea, No Paroxysmal Noc. Dyspnea, No Edema, No Lt Headedness, No Other Gastrointestinal: No Nausea, No Vomiting, No Abdominal Pain, No Diarrhea, No Constipation, No Melena, No Hematochezia, No Other Genitourinary: No Dysuria, No Frequency, No Incontinence, No Hematuria, No Retention, No Discharge, No Urgency, No Pain, No Flank Pain, No Other, No , No , No , No , No , No , No Musculoskeletal: Yes Muscle Pain Neurological: Yes Gait Disturbance; No Behavorial Changes, No Bowel/Bladder ControlChng, No Confusion, No Dizziness, No Headaches, No Impaired Coord/balance, No Memory Loss, No Numbness/Tingling, No Seizures, No Speech Problems, No Tremors, No Visual Changes, No Weakness, No Other Skin: No Dry Skin, No Eczema, No Hair Changes, No Lumps, No Mole Changes, No Mottling, No Nail Changes, No Pruritus, No Rash, No Skin Lesion Changes, No Other, No Acne Physical Exam General: Alert, Oriented X3 HEENT: Atraumatic, EOMI Lungs: Other (respirations aren't labored with symmetric chest rise) Heart: Regular rate Abdomen: Soft, No tenderness Extremities: No edema, Other (her cells pedis 1+ and the right) Skin: Other (he has scattered superficial ulcers at his right calf) Neuro: Normal speech, Sensation intact Psych/Mental Status: Mental status NL, Mood NL MUSCULOSKELETAL: Other (he is in a short-leg cast on his left lower extremity. Examination of his right lower extremity reveals the wounds as noted above, I do not feel a palpable defect in his Achilles but he has weak plantar flexion. Negative Perez.) Vitals VITALS Vital Signs Date Time Temp Pulse Resp B/P (MAP) Pulse Ox O2 Delivery O2 Flow Rate FiO2 11/21/18 07:00 98.1 97 18 140/45 (76) 95 Room Air 98.1 Labs Labs Laboratory Tests Test 11/19/18 17:34 11/19/18 18:00 11/19/18 18:42 11/19/18 19:35 Glucose (Fingerstick) 76 mg/dL (70-99) 96 mg/dL (70-99) White Blood Count 11.3 x10^3/uL (4.0-11.0) Red Blood Count 4.76 x10^6/uL (4.30-5.70) Hemoglobin 12.1 g/dL (13.0-17.5) Hematocrit 37.7 % (39.0-53.0) Mean Corpuscular Volume 79 fL (79-100) Mean Corpuscular Hemoglobin 25 pg (25-35) Mean Corpuscular Hemoglobin Concent 32 g/dL (31-37) Red Cell Distribution Width 19.0 % (11.5-14.5) Platelet Count 272 x10^3/uL (140-400) Neutrophils (%) (Auto) 76 % (31-73) Lymphocytes (%) (Auto) 12 % (24-48) Monocytes (%) (Auto) 10 % (0-9) Eosinophils (%) (Auto) 1 % (0-3) Basophils (%) (Auto) 1 % (0-3) Neutrophils # (Auto) 8.7 x10^3/uL (1.8-7.7) Lymphocytes # (Auto) 1.4 x10^3/uL (1.0-4.8) Monocytes # (Auto) 1.1 x10^3/uL (0.0-1.1) Eosinophils # (Auto) 0.1 x10^3/uL (0.0-0.7) Basophils # (Auto) 0.1 x10^3/uL (0.0-0.2) Sodium Level 138 mmol/L (136-145) Potassium Level 4.4 mmol/L (3.5-5.1) Chloride Level 99 mmol/L (98-107) Carbon Dioxide Level 33 mmol/L (21-32) Anion Gap 6 (6-14) Blood Urea Nitrogen 30 mg/dL (8-26) Creatinine 1.7 mg/dL (0.7-1.3) Estimated GFR (Cockcroft-Gault) 40.7 BUN/Creatinine Ratio 18 (6-20) Glucose Level 85 mg/dL (70-99) Calcium Level 9.6 mg/dL (8.5-10.1) Magnesium Level 1.8 mg/dL (1.8-2.4) Total Bilirubin 0.4 mg/dL (0.2-1.0) Aspartate Amino Transf (AST/SGOT) 28 U/L (15-37) Alanine Aminotransferase (ALT/SGPT) 23 U/L (16-63) Alkaline Phosphatase 122 U/L (46-116) C-Reactive Protein, Quantitative 20.2 mg/L (0-3.3) Total Protein 7.7 g/dL (6.4-8.2) Albumin 3.5 g/dL (3.4-5.0) Albumin/Globulin Ratio 0.8 (1.0-1.7) Urine Collection Type Unknown Urine Color Yellow Urine Clarity Clear Urine pH 5.0 Urine Specific Friend 1.020 Urine Protein Negative mg/dL (NEG-TRACE) Urine Glucose (UA) Negative mg/dL (NEG) Urine Ketones (Stick) Negative mg/dL (NEG) Urine Blood Negative (NEG) Urine Nitrite Negative (NEG) Urine Bilirubin Negative (NEG) Urine Urobilinogen Dipstick 0.2 mg/dL (0.2 mg/dL) Urine Leukocyte Esterase Negative (NEG) Urine RBC 6-10 /HPF (0-2) Urine WBC 11-20 /HPF (0-4) Urine Squamous Epithelial Cells Mod /LPF Urine Bacteria Moderate /HPF (0-FEW) Urine Hyaline Casts Many /HPF Urine Mucus Marked /LPF Test 11/19/18 22:49 11/20/18 07:09 11/20/18 11:36 11/20/18 16:37 Glucose (Fingerstick) 159 mg/dL (70-99) 188 mg/dL (70-99) 283 mg/dL (70-99) 68 mg/dL (70-99) Test 11/20/18 18:17 11/20/18 21:36 11/21/18 08:09 Glucose (Fingerstick) 94 mg/dL (70-99) 143 mg/dL (70-99) 170 mg/dL (70-99) Laboratory Tests Test 11/20/18 11:36 11/20/18 16:37 11/20/18 18:17 11/20/18 21:36 Glucose (Fingerstick) 283 mg/dL (70-99) 68 mg/dL (70-99) 94 mg/dL (70-99) 143 mg/dL (70-99) Test 11/21/18 08:09 Glucose (Fingerstick) 170 mg/dL (70-99) Assessment/Plan Assessment/Plan I think it likely that he has a partial rupture on the right side. Given his overall clinical scenario and health I would recommend nonoperative treatment, he can continue using the Cam boot, I have ordered a heel lift from [facility]. I would anticipate he will need placement. He can follow up with me in 2-3 weeks ELIZABETH VARGAS II, MD Nov 21, 2018 08:49
[2018-11-21] MEDS: buPROPion SR 150 MG TABLET.SA PO SCH ×2 (09:04→20:54)
[2018-11-21] MEDS: oxyCODONE/APAP 10/325 1 TAB TABLET PO PRN (09:04)
[2018-11-21] MEDS: metFORMIN 850 MG TABLET PO SCH ×3 (09:05→17:57)
[2018-11-21] MEDS: FUROSEMIDE 80 MG TABLET. PO SCH (09:05)
[2018-11-21] MEDS: DOCUSATE SODIUM 100 MG CAPSULE. PO SCH ×2 (09:05→20:55)
[2018-11-21] MEDS: LISINOPRIL 5 MG TABLET. PO SCH (09:05)
[2018-11-21] MEDS: CITALOPRAM 20 MG TABLET. PO SCH (09:05)
[2018-11-21] MEDS: CHOLECALCIFEROL (VITAMIN D3) 1,000 UNIT TABLET PO SCH (09:05)
--- NOTE | 2018-11-21 09:06 | PDOC ---
PROGRESS NOTES Chief Complaint Chief Complaint A/P: Achilles tendon injury - he felt something snap in his right heel and has pain and weakness on dorsiflexion. No quinolone exposure recently that he knows of Unable to walk - 2/2 cast on LLE and right leg weakness Hypertension - cont meds Hyperlipidemia - statin Symptomatic hypoglycemia - his recent U-500 dosing may play a role, will hold this. Obesity - morbid obesity, counseled on weight loss, consider GLP-1 or SGLT-2 H/o Achilles tendon rupture on the left - in cast currently CAD - s/p 4x Coronary bypass surgery 01/2015 PPM in situ - dual chamber, [facility] last download 01/02/2018 normal device function, AFIB burden <1%, V paced 4.5%. No significant arrhythmia. 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 Will change him back to a lantus BID and lispro TID schedule with sliding scale while in house. Consider SGLT-2 or GLP-1 Plan: I would anticipate he will need placement. He can follow up with Orthopedic surgery, Dr. Hardy, in 2-3 weeks. non-operative likely partial tear of right achilles tendon, can be placed in CAM boot. History of Present Illness History of Present Illness Mr Zazueta is a 63-year-old male w/ PMHx PPM in situ, s/p TAVR, hypertension, hyperlipidemia, obesity, previous Achilles tendon rupture on the left, CAD s/p coronary bypass surgery, peripheral vascular disease, diabetes who has been recovering in a cast from his left achilles rupture who got up and fell and he likely partially ruptured his right Achilles tendon. He is unable to walk and will be admitted for further treatment and diagnosis. Seen by ortho, has plans for MRI, will need his pacer deactivated for this. His right heel is extremely painful today. He had 1 low blood glucose yesterday, insulin adjusted (now he is at 20% of what his outpatient dosing was reported to be). Denies CP or SOB. Vitals Vitals Vital Signs Date Time Temp Pulse Resp B/P (MAP) Pulse Ox O2 Delivery O2 Flow Rate FiO2 11/21/18 07:00 98.1 97 18 140/45 (76) 95 Room Air 98.1 Physical Exam General: Alert, Oriented X3 Heart: Regular rate Lungs: Clear, Other Abdomen: Soft, No tenderness Extremities: No edema, Other (her cells pedis 1+ and the right) Skin: Other (he has scattered superficial ulcers at his right calf) Labs LABS Laboratory Tests Test 11/20/18 11:36 11/20/18 16:37 11/20/18 18:17 11/20/18 21:36 Glucose (Fingerstick) 283 mg/dL (70-99) 68 mg/dL (70-99) 94 mg/dL (70-99) 143 mg/dL (70-99) Test 11/21/18 08:09 Glucose (Fingerstick) 170 mg/dL (70-99) Assessment and Plan Assessmemt and Plan Problems Medical Problems: (1) Hypoglycemia Status: Acute (2) Unable to walk Status: Acute Comment Review of Relevant I have reviewed the following items billie (where applicable) has been applied. Labs Laboratory Tests Test 11/19/18 17:34 11/19/18 18:00 11/19/18 18:42 11/19/18 19:35 Glucose (Fingerstick) 76 mg/dL (70-99) 96 mg/dL (70-99) White Blood Count 11.3 x10^3/uL (4.0-11.0) Red Blood Count 4.76 x10^6/uL (4.30-5.70) Hemoglobin 12.1 g/dL (13.0-17.5) Hematocrit 37.7 % (39.0-53.0) Mean Corpuscular Volume 79 fL (79-100) Mean Corpuscular Hemoglobin 25 pg (25-35) Mean Corpuscular Hemoglobin Concent 32 g/dL (31-37) Red Cell Distribution Width 19.0 % (11.5-14.5) Platelet Count 272 x10^3/uL (140-400) Neutrophils (%) (Auto) 76 % (31-73) Lymphocytes (%) (Auto) 12 % (24-48) Monocytes (%) (Auto) 10 % (0-9) Eosinophils (%) (Auto) 1 % (0-3) Basophils (%) (Auto) 1 % (0-3) Neutrophils # (Auto) 8.7 x10^3/uL (1.8-7.7) Lymphocytes # (Auto) 1.4 x10^3/uL (1.0-4.8) Monocytes # (Auto) 1.1 x10^3/uL (0.0-1.1) Eosinophils # (Auto) 0.1 x10^3/uL (0.0-0.7) Basophils # (Auto) 0.1 x10^3/uL (0.0-0.2) Sodium Level 138 mmol/L (136-145) Potassium Level 4.4 mmol/L (3.5-5.1) Chloride Level 99 mmol/L (98-107) Carbon Dioxide Level 33 mmol/L (21-32) Anion Gap 6 (6-14) Blood Urea Nitrogen 30 mg/dL (8-26) Creatinine 1.7 mg/dL (0.7-1.3) Estimated GFR (Cockcroft-Gault) 40.7 BUN/Creatinine Ratio 18 (6-20) Glucose Level 85 mg/dL (70-99) Calcium Level 9.6 mg/dL (8.5-10.1) Magnesium Level 1.8 mg/dL (1.8-2.4) Total Bilirubin 0.4 mg/dL (0.2-1.0) Aspartate Amino Transf (AST/SGOT) 28 U/L (15-37) Alanine Aminotransferase (ALT/SGPT) 23 U/L (16-63) Alkaline Phosphatase 122 U/L (46-116) C-Reactive Protein, Quantitative 20.2 mg/L (0-3.3) Total Protein 7.7 g/dL (6.4-8.2) Albumin 3.5 g/dL (3.4-5.0) Albumin/Globulin Ratio 0.8 (1.0-1.7) Urine Collection Type Unknown Urine Color Yellow Urine Clarity Clear Urine pH 5.0 Urine Specific [place] 1.020 Urine Protein Negative mg/dL (NEG-TRACE) Urine Glucose (UA) Negative mg/dL (NEG) Urine Ketones (Stick) Negative mg/dL (NEG) Urine Blood Negative (NEG) Urine Nitrite Negative (NEG) Urine Bilirubin Negative (NEG) Urine Urobilinogen Dipstick 0.2 mg/dL (0.2 mg/dL) Urine Leukocyte Esterase Negative (NEG) Urine RBC 6-10 /HPF (0-2) Urine WBC 11-20 /HPF (0-4) Urine Squamous Epithelial Cells Mod /LPF Urine Bacteria Moderate /HPF (0-FEW) Urine Hyaline Casts Many /HPF Urine Mucus Marked /LPF Test 11/19/18 22:49 11/20/18 07:09 11/20/18 11:36 11/20/18 16:37 Glucose (Fingerstick) 159 mg/dL (70-99) 188 mg/dL (70-99) 283 mg/dL (70-99) 68 mg/dL (70-99) Test 11/20/18 18:17 11/20/18 21:36 11/21/18 08:09 Glucose (Fingerstick) 94 mg/dL (70-99) 143 mg/dL (70-99) 170 mg/dL (70-99) Laboratory Tests Test 11/20/18 11:36 11/20/18 16:37 11/20/18 18:17 11/20/18 21:36 Glucose (Fingerstick) 283 mg/dL (70-99) 68 mg/dL (70-99) 94 mg/dL (70-99) 143 mg/dL (70-99) Test 11/21/18 08:09 Glucose (Fingerstick) 170 mg/dL (70-99) Medications Current Medications Acetaminophen (Tylenol) 500 mg Q6HRS PRN PO PAIN/FEVER; Start 11/19/18 at 22:00 ; Stop 11/20/18 at 12:48; Status DC Aspirin (Children'S Aspirin) 81 mg DAILYWBKFT PO ; Start 11/20/18 at 08:00; Stop 11/20/18 at 09:35; Status DC Vitamin D (Vitamin D3) 1,000 unit DAILY PO Last administered on 11/20/18at 10:07; Start 11/20/18 at 09:00 Citalopram Hydrobromide (CeleXA) 20 mg DAILY PO Last administered on 11/20/18at 10:07; Start 11/20/18 at 09:00 Clopidogrel Bisulfate (Plavix) 75 mg DAILY PO ; Start 11/20/18 at 09:00; Stop 11/20/18 at 09:35; Status DC Diclofenac Sodium (Voltaren) 1 clair BID TP ; Start 11/20/18 at 09:00; Stop 11/20/18 at 09:35; Status DC Docusate Sodium (Colace) 100 mg BID PO Last administered on 11/20/18at 20:37; Start 11/20/18 at 09:00 Ergocalciferol (Vitamin D2) 50,000 unit QFR PO ; Start 11/21/18 at 16:00 Lisinopril (Prinivil) 5 mg DAILY PO Last administered on 11/20/18at 10:07; Start 11/20/18 at 09:00 Metformin HCl (Glucophage) 850 mg BIDWMEALS PO ; Start 11/20/18 at 08:00; Stop 11/20/18 at 09:35; Status DC Metoprolol Succinate (Toprol Xl) 25 mg DAILY PO ; Start 11/20/18 at 09:00; Stop 11/20/18 at 09:35; Status DC Midodrine (Proamatine) 5 mg DAILY PO ; Start 11/20/18 at 09:00; Stop 11/20/18 at 09:35; Status DC Nitroglycerin (Nitrostat) 0.4 mg PRN Q5MIN PRN SL CHEST PAIN; Start 11/19/18 at 22:00 Oxycodone/ Acetaminophen (Percocet 10/325) 1 tab PRN Q8HRS PRN PO PAIN Last administered on 11/20/18at 23:31; Start 11/19/18 at 22:00 Atorvastatin Calcium (Lipitor) 80 mg HS PO Last administered on 11/20/18at 20:37; Start 11/19/18 at 22:45 Bupropion HCl (Wellbutrin Sr) 300 mg DAILY PO ; Start 11/20/18 at 09:00; Stop 11/20/18 at 09:35; Status DC Fluoxetine HCl (PROzac) 40 mg DAILY PO ; Start 11/20/18 at 09:00; Stop 11/20/18 at 09:35; Status DC Non-Formulary Medication (Tramadol Hcl/ Acetaminophen (Tramadol-Acetaminophn 37.5-325)) mild pain QHS PO ; Start 11/20/18 at 21:00; Status UNV Trazodone HCl (Desyrel) 150 mg PRN QHS PRN PO INSOMNIA Last administered on 11/20/18at 23:30; Start 11/19/18 at 22:00 Triamcinolone Acetonide (Kenalog 0.1%) 1 clair BID TP ; Start 11/20/18 at 09:00; Stop 11/20/18 at 09:35; Status DC Acetaminophen (Tylenol) 1,000 mg Q6HRS PRN PO PAIN/FEVER; Start 11/19/18 at 22:45; Stop 11/20/18 at 12:49; Status DC Tramadol HCl (Ultram) 37.5 mg QHS PO Last administered on 11/20/18at 20:37; Start 11/20/18 at 21:00 Acetaminophen (Tylenol) 325 mg QHS PO Last administered on 11/20/18at 20:36; Start 11/20/18 at 21:00 Tramadol HCl (Ultram) 37.5 mg PRN QHS PRN PO PAIN, IF 2ND DOSE IS NEEDED; Start 11/20/18 at 21:00 Acetaminophen (Tylenol) 325 mg PRN QHS PRN PO PAIN,IF 2ND DOSE IS NEEDED; Start 11/20/18 at 21:00 Bupropion HCl (Wellbutrin Sr) 150 mg BID PO Last administered on 11/20/18at 20:37; Start 11/20/18 at 10:00 Metformin HCl (Glucophage) 850 mg TIDWMEALS PO Last administered on 11/20/18at 17:18; Start 11/20/18 at 09:30 Furosemide (Lasix) 80 mg DAILY PO Last administered on 11/20/18at 10:06; Start 11/20/18 at 10:00 Insulin Glargine (Lantus Syringe) 50 unit BID SQ Last administered on 11/20/18at 12:39; Start 11/20/18 at 10:00; Stop 11/20/18 at 18:37; Status DC Insulin Human Lispro (HumaLOG) 30 units TIDAC SQ Last administered on 11/20/18at 12:39; Start 11/20/18 at 09:30; Stop 11/20/18 at 18:37; Status DC Insulin Human Lispro (HumaLOG) 15 units PRN TID PRN SQ WITH SNACKS; Start 11/20/18 at 09:30 Acetaminophen (Tylenol) 500 mg PRN Q6HRS PRN PO PAIN/FEVER; Start 11/20/18 at 13:00 Acetaminophen (Tylenol) 1,000 mg PRN Q6HRS PRN PO PAIN/FEVER; Start 11/20/18 at 13:00 Insulin Glargine (Lantus Syringe) 40 unit BID SQ Last administered on 11/20/18at 20:45; Start 11/20/18 at 21:00 Insulin Human Lispro (HumaLOG) 25 units TIDAC SQ ; Start 11/21/18 at 07:30 Sodium Chloride 500 ml @ 500 mls/hr 1X ONCE IV Last administered on 11/20/18at 20:24; Start 11/20/18 at 18:45; Stop 11/20/18 at 19:44; Status DC Active Scripts Active Reported Lasix (Furosemide) 80 Mg Tablet 1 Tab PO DAILY Humulin R U-500 Kwikpen (Insulin Regular, Human) 500 Unit/1 Ml Insuln.pen 90 Unit SQ DAILYWSUP Humulin R U-500 Kwikpen (Insulin Regular, Human) 500 Unit/1 Ml Insuln.pen 90 Uni t SQ DAILYWLUN Humulin R U-500 Kwikpen (Insulin Regular, Human) 500 Unit/1 Ml Insuln.pen 110 Units SQ DAILYWBKFT Citalopram Hbr (Citalopram Hydrobromide) 20 Mg Tablet 1 Tab PO DAILY Levemir (Insulin Detemir) 100 Unit/1 Ml Vial 50 Unit SQ BID Percocet 10-325 Mg Tablet (Oxycodone/Acetaminophen) 1 Each Tablet 1 Tab PO PRN Q8HRS Novolog Flexpen (Insulin Aspart) 100 Unit/1 Ml Insuln.pen 15 Unit SQ PRN Novolog Flexpen (Insulin Aspart) 100 Unit/1 Ml Insuln.pen 30 Unit SQ TIDWMEALS NITROGLYCERIN SubLingual (Nitroglycerin) 0.4 Mg Tab.subl 0.4 Mg SL PRN Q5MIN PRN Fluoxetine Hcl 40 Mg Capsule 40 Mg PO DAILY Docusate Sodium 100 Mg Capsule 100 Mg PO BID Atorvastatin Calcium 80 Mg Tablet 80 Mg PO HS Acetaminophen 500 Mg Tablet 1-2 Tab PO Q6HRS Lisinopril 5 Mg Tablet 1 Tab PO DAILY Trazodone Hcl 150 Mg Tablet 1 Tab PO QHS PRN Bupropion Hcl Sr (Bupropion Hcl) 150 Mg Tablet.er 150 Mg PO BID Metformin Hcl 850 Mg Tablet 850 Mg PO TID hold med until 11/23/15 Vitals/I & O Vital Sign - Last 24 Hours 11/20/18 11/20/18 11/20/18 11/20/18 10:07 10:13 11:09 15:12 Temp 98.5 98.4 98.5 98.4 Pulse 85 87 85 Resp 20 18 B/P (MAP) 136/52 137/44 (75) 117/43 (67) Pulse Ox 95 95 94 O2 Delivery Room Air Room Air Room Air 11/20/18 11/20/18 11/20/18 11/20/18 19:00 20:00 23:00 23:23 Temp 99.2 97.8 99.2 97.8 Pulse 85 87 Resp 20 18 B/P (MAP) 103/66 (78) 114/57 (76) Pulse Ox 93 91 O2 Delivery Room Air BiPAP/CPAP 11/21/18 11/21/18 03:00 07:00 Temp 97.5 98.1 97.5 98.1 Pulse 92 97 Resp 20 18 B/P (MAP) 144/52 (82) 140/45 (76) Pulse Ox 100 95 O2 Delivery Room Air Intake and Output 11/20/18 11/20/18 11/21/18 14:59 22:59 06:59 Intake Total 1300 ml 750 ml Output Total 1100 ml Balance 1300 ml 750 ml -1100 ml AMEYA CHOI MD Nov 21, 2018 09:06
[2018-11-21] MEDS: INSULIN GLARGINE SYRINGE. SQ SCH ×2 (09:11→21:05)
[2018-11-21] MEDS: INSULIN LISPRO 300 UNITS/3 ML VIAL. SQ SCH ×3 (09:12→16:30)
[2018-11-21 09:49] LABS: BASO % 0 % (0-3); EOS # 0.1 x10^3/uL (0.0-0.7); EOS % 1 % (0-3); HEMATOCRIT 34.5 % (39.0-53.0); HEMOGLOBIN 11.1 g/dL (13.0-17.5); LYMPH # 1.2 x10^3/uL (1.0-4.8); LYMPH % 16 % (24-48); MEAN CORPUSCULAR HEMOGLOBIN 26 pg (25-35); MEAN CORPUSCULAR HGB CONC 32 g/dL (31-37); MEAN CORPUSCULAR VOLUME 80 fL (79-100); MONO # 0.8 x10^3/uL (0.0-1.1); MONO % 10 % (0-9); NEUT # 5.4 x10^3/uL (1.8-7.7); NEUT % 72 % (31-73); PLATELET COUNT 233 x10^3/uL (140-400); RED BLOOD COUNT 4.31 x10^6/uL (4.30-5.70); RED CELL DISTRIBUTION WIDTH 18.5 % (11.5-14.5); WHITE BLOOD COUNT 7.5 x10^3/uL (4.0-11.0)
[2018-11-21 09:52] LABS: CALCIUM 8.9 mg/dL (8.5-10.1); CREATININE 1.5 mg/dL (0.7-1.3)
[2018-11-21 11:00] VITALS: BP 117/37
--- NOTE | 2018-11-21 12:53 | NUR ---
ALEXA consulted for dc planning. Chart reviewed and discussed with RN. Pt lives at home and has ruptured his left Achilles tendon in the recent past. Pt has been using a cast on that leg but Pt fell at home and ruptured his right Achilles tendon again. [facility] requested for PT/OT order to eval skilled/rehab needs. Per RN pt already has a cam boot and a cast. Plan 1. SW will await for PT/OT assessment to eval dc needs. 2. Will continue to follow.
[2018-11-21 15:00] VITALS: BP 137/47
[2018-11-21] MEDS ORDERED: ERGOCALCIFEROL (VITAMIN D2) 50,000 UNIT CAPSULE. PO SCH (16:00)
--- NOTE | 2018-11-21 16:07 | NUR ---
SW following pt. PT/OT recommends SNU. Spoke with pt's about options, insurance coverage and medicare ratings. Pt's Chose [facility]. [facility] phoned and faxed referral to [facility]. Pt acceptance and admission pending. Will continue to follow. Discussed with RN.
[2018-11-21 19:00] VITALS: BP 129/65
[2018-11-21] MEDS: ATORVASTATIN CALCIUM 40 MG TABLET. PO SCH (20:54)
[2018-11-21] MEDS: ACETAMINOPHEN 325 MG TABLET. PO SCH (20:54)
[2018-11-21] MEDS: traMADol 50 MG TABLET PO SCH (20:57)
[2018-11-21 22:41] VITALS: BP 123/61
[2018-11-22] MEDS: oxyCODONE/APAP 10/325 1 TAB TABLET PO PRN
[2018-11-22 03:36] VITALS: BP 131/61
[2018-11-22 07:00] VITALS: BP 113/81
--- NOTE | 2018-11-22 08:47 | PDOC ---
PROGRESS NOTES Chief Complaint Chief Complaint A/P: Achilles tendon injury - he felt something snap in his right heel and has pain and weakness on dorsiflexion. No quinolone exposure recently that he knows of Unable to walk - 2/2 cast on LLE and right leg weakness Hypertension - cont meds Hyperlipidemia - statin Symptomatic hypoglycemia - his recent U-500 dosing may play a role, will hold this. Obesity - morbid obesity, counseled on weight loss, consider GLP-1 or SGLT-2 H/o Achilles tendon rupture on the left - in cast currently CAD - s/p 4x Coronary bypass surgery 01/2015 PPM in situ - dual chamber, [facility] last download 01/02/2018 normal device function, AFIB burden <1%, V paced 4.5%. No significant arrhythmia. S/p TAVR - 12/2016 Peripheral vascular disease - noted with medical management of bilateral lower extremity disease on non-occlusive studies in 2016 Diabetes - seeing [facility], was recently started on U-500, has had daily hypoglycemic episodes into the 30s and 40s. Will change him back to a lantus BID and lispro TID schedule with sliding scale while in house. Consider SGLT-2 or GLP-1 Plan: I would anticipate he will need placement. He can follow up with Orthopedic surgery, Dr. Hardy, in 2-3 weeks. non-operative likely partial tear of right achilles tendon, can be placed in CAM boot. History of Present Illness History of Present Illness Mr Zazueta is a 63-year-old male w/ PMHx PPM in situ, s/p TAVR, hypertension, hyperlipidemia, obesity, previous Achilles tendon rupture on the left, CAD s/p coronary bypass surgery, peripheral vascular disease, diabetes who has been recovering in a cast from his left achilles rupture who got up and fell and he likely partially ruptured his right Achilles tendon. He is unable to walk and will be admitted for further treatment and diagnosis. 11/21: Seen by ortho, no immediate indication for surgery. Has plans for MRI outpatient, will need his pacer deactivated for this. Still not able to transition or walk well. Needs to have rehab. Low glucose yesterday. His right heel is extremely painful today. He had no further low blood glucose yesterday, insulin adjusted (now he is at 20% of what his outpatient dosing was reported to be). Denies CP or SOB. Looking into skilled facilities. Vitals Vitals Vital Signs Date Time Temp Pulse Resp B/P (MAP) Pulse Ox O2 Delivery O2 Flow Rate FiO2 11/22/18 07:00 97.5 72 20 113/81 (92) 98 Room Air 97.5 Physical Exam General: Alert, Oriented X3 Heart: Regular rate Lungs: Clear, Other Abdomen: Soft, No tenderness Extremities: No edema, Other (her cells pedis 1+ and the right) Skin: Other (he has scattered superficial ulcers at his right calf) Labs LABS Laboratory Tests Test 11/21/18 09:20 11/21/18 11:16 11/21/18 16:50 11/21/18 21:13 White Blood Count 7.5 x10^3/uL (4.0-11.0) Red Blood Count 4.31 x10^6/uL (4.30-5.70) Hemoglobin 11.1 g/dL (13.0-17.5) Hematocrit 34.5 % (39.0-53.0) Mean Corpuscular Volume 80 fL (79-100) Mean Corpuscular Hemoglobin 26 pg (25-35) Mean Corpuscular Hemoglobin Concent 32 g/dL (31-37) Red Cell Distribution Width 18.5 % (11.5-14.5) Platelet Count 233 x10^3/uL (140-400) Neutrophils (%) (Auto) 72 % (31-73) Lymphocytes (%) (Auto) 16 % (24-48) Monocytes (%) (Auto) 10 % (0-9) Eosinophils (%) (Auto) 1 % (0-3) Basophils (%) (Auto) 0 % (0-3) Neutrophils # (Auto) 5.4 x10^3/uL (1.8-7.7) Lymphocytes # (Auto) 1.2 x10^3/uL (1.0-4.8) Monocytes # (Auto) 0.8 x10^3/uL (0.0-1.1) Eosinophils # (Auto) 0.1 x10^3/uL (0.0-0.7) Basophils # (Auto) 0.0 x10^3/uL (0.0-0.2) Sodium Level 135 mmol/L (136-145) Potassium Level 5.0 mmol/L (3.5-5.1) Chloride Level 98 mmol/L (98-107) Carbon Dioxide Level 33 mmol/L (21-32) Anion Gap 4 (6-14) Blood Urea Nitrogen 27 mg/dL (8-26) Creatinine 1.5 mg/dL (0.7-1.3) Estimated GFR (Cockcroft-Gault) 47.0 Glucose Level 286 mg/dL (70-99) Calcium Level 8.9 mg/dL (8.5-10.1) Glucose (Fingerstick) 266 mg/dL (70-99) 89 mg/dL (70-99) 184 mg/dL (70-99) Test 11/22/18 07:27 Glucose (Fingerstick) 198 mg/dL (70-99) Assessment and Plan Assessmemt and Plan Problems Medical Problems: (1) Hypoglycemia Status: Acute (2) Unable to walk Status: Acute Comment Review of Relevant I have reviewed the following items billie (where applicable) has been applied. Labs Laboratory Tests Test 11/20/18 11:36 11/20/18 16:37 11/20/18 18:17 11/20/18 21:36 Glucose (Fingerstick) 283 mg/dL (70-99) 68 mg/dL (70-99) 94 mg/dL (70-99) 143 mg/dL (70-99) Test 11/21/18 08:09 11/21/18 09:20 11/21/18 11:16 11/21/18 16:50 Glucose (Fingerstick) 170 mg/dL (70-99) 266 mg/dL (70-99) 89 mg/dL (70-99) White Blood Count 7.5 x10^3/uL (4.0-11.0) Red Blood Count 4.31 x10^6/uL (4.30-5.70) Hemoglobin 11.1 g/dL (13.0-17.5) Hematocrit 34.5 % (39.0-53.0) Mean Corpuscular Volume 80 fL (79-100) Mean Corpuscular Hemoglobin 26 pg (25-35) Mean Corpuscular Hemoglobin Concent 32 g/dL (31-37) Red Cell Distribution Width 18.5 % (11.5-14.5) Platelet Count 233 x10^3/uL (140-400) Neutrophils (%) (Auto) 72 % (31-73) Lymphocytes (%) (Auto) 16 % (24-48) Monocytes (%) (Auto) 10 % (0-9) Eosinophils (%) (Auto) 1 % (0-3) Basophils (%) (Auto) 0 % (0-3) Neutrophils # (Auto) 5.4 x10^3/uL (1.8-7.7) Lymphocytes # (Auto) 1.2 x10^3/uL (1.0-4.8) Monocytes # (Auto) 0.8 x10^3/uL (0.0-1.1) Eosinophils # (Auto) 0.1 x10^3/uL (0.0-0.7) Basophils # (Auto) 0.0 x10^3/uL (0.0-0.2) Sodium Level 135 mmol/L (136-145) Potassium Level 5.0 mmol/L (3.5-5.1) Chloride Level 98 mmol/L (98-107) Carbon Dioxide Level 33 mmol/L (21-32) Anion Gap 4 (6-14) Blood Urea Nitrogen 27 mg/dL (8-26) Creatinine 1.5 mg/dL (0.7-1.3) Estimated GFR (Cockcroft-Gault) 47.0 Glucose Level 286 mg/dL (70-99) Calcium Level 8.9 mg/dL (8.5-10.1) Test 11/21/18 21:13 11/22/18 07:27 Glucose (Fingerstick) 184 mg/dL (70-99) 198 mg/dL (70-99) Laboratory Tests Test 11/21/18 09:20 11/21/18 11:16 11/21/18 16:50 11/21/18 21:13 White Blood Count 7.5 x10^3/uL (4.0-11.0) Red Blood Count 4.31 x10^6/uL (4.30-5.70) Hemoglobin 11.1 g/dL (13.0-17.5) Hematocrit 34.5 % (39.0-53.0) Mean Corpuscular Volume 80 fL (79-100) Mean Corpuscular Hemoglobin 26 pg (25-35) Mean Corpuscular Hemoglobin Concent 32 g/dL (31-37) Red Cell Distribution Width 18.5 % (11.5-14.5) Platelet Count 233 x10^3/uL (140-400) Neutrophils (%) (Auto) 72 % (31-73) Lymphocytes (%) (Auto) 16 % (24-48) Monocytes (%) (Auto) 10 % (0-9) Eosinophils (%) (Auto) 1 % (0-3) Basophils (%) (Auto) 0 % (0-3) Neutrophils # (Auto) 5.4 x10^3/uL (1.8-7.7) Lymphocytes # (Auto) 1.2 x10^3/uL (1.0-4.8) Monocytes # (Auto) 0.8 x10^3/uL (0.0-1.1) Eosinophils # (Auto) 0.1 x10^3/uL (0.0-0.7) Basophils # (Auto) 0.0 x10^3/uL (0.0-0.2) Sodium Level 135 mmol/L (136-145) Potassium Level 5.0 mmol/L (3.5-5.1) Chloride Level 98 mmol/L (98-107) Carbon Dioxide Level 33 mmol/L (21-32) Anion Gap 4 (6-14) Blood Urea Nitrogen 27 mg/dL (8-26) Creatinine 1.5 mg/dL (0.7-1.3) Estimated GFR (Cockcroft-Gault) 47.0 Glucose Level 286 mg/dL (70-99) Calcium Level 8.9 mg/dL (8.5-10.1) Glucose (Fingerstick) 266 mg/dL (70-99) 89 mg/dL (70-99) 184 mg/dL (70-99) Test 11/22/18 07:27 Glucose (Fingerstick) 198 mg/dL (70-99) Microbiology 11/19/18 Urine Culture - Final, Complete 11/19/18 Urine Culture Result 1 (BILLIE) - Final, Complete Medications Current Medications Acetaminophen (Tylenol) 500 mg Q6HRS PRN PO PAIN/FEVER; Start 11/19/18 at 22:00; Stop 11/20/18 at 12:48; Status DC Aspirin (Children'S Aspirin) 81 mg DAILYWBKFT PO ; Start 11/20/18 at 08:00; Stop 11/20/18 at 09:35; Status DC Vitamin D (Vitamin D3) 1,000 unit DAILY PO Last administered on 11/21/18at 09:05; Start 11/20/18 at 09:00 Citalopram Hydrobromide (CeleXA) 20 mg DAILY PO Last administered on 11/21/18at 09:05; Start 11/20/18 at 09:00 Clopidogrel Bisulfate (Plavix) 75 mg DAILY PO ; Start 11/20/18 at 09:00; Stop 11/20/18 at 09:35; Status DC Diclofenac Sodium (Voltaren) 1 clair BID TP ; Start 11/20/18 at 09:00; Stop 11/20/18 at 09:35; Status DC Docusate Sodium (Colace) 100 mg BID PO Last administered on 11/21/18at 20:55; Start 11/20/18 at 09:00 Ergocalciferol (Vitamin D2) 50,000 unit QFR PO Last administered on 11/21/18at 17:58; Start 11/21/18 at 16:00 Lisinopril (Prinivil) 5 mg DAILY PO Last administered on 11/21/18at 09:05; Star t 11/20/18 at 09:00 Metformin HCl (Glucophage) 850 mg BIDWMEALS PO ; Start 11/20/18 at 08:00; Stop 11/20/18 at 09:35; Status DC Metoprolol Succinate (Toprol Xl) 25 mg DAILY PO ; Start 11/20/18 at 09:00; Stop 11/20/18 at 09:35; Status DC Midodrine (Proamatine) 5 mg DAILY PO ; Start 11/20/18 at 09:00; Stop 11/20/18 at 09:35; Status DC Nitroglycerin (Nitrostat) 0.4 mg PRN Q5MIN PRN SL CHEST PAIN; Start 11/19/18 at 22:00 Oxycodone/ Acetaminophen (Percocet 10/325) 1 tab PRN Q8HRS PRN PO SEVERE PAIN Last administered on 11/22/18at 00:00; Start 11/19/18 at 22:00 Atorvastatin Calcium (Lipitor) 80 mg HS PO Last administered on 11/21/18at 20:54; Start 11/19/18 at 22:45 Bupropion HCl (Wellbutrin Sr) 300 mg DAILY PO ; Start 11/20/18 at 09:00; Stop 11/20/18 at 09:35; Status DC Fluoxetine HCl (PROzac) 40 mg DAILY PO ; Start 11/20/18 at 09:00; Stop 11/20/18 at 09:35; Status DC Non-Formulary Medication (Tramadol Hcl/ Acetaminophen (Tramadol-Acetaminophn 37.5-325)) mild pain QHS PO ; Start 11/20/18 at 21:00; Status UNV Trazodone HCl (Desyrel) 150 mg PRN QHS PRN PO INSOMNIA Last administered on 11/20/18at 23:30; Start 11/19/18 at 22:00 Triamcinolone Acetonide (Kenalog 0.1%) 1 clair BID TP ; Start 11/20/18 at 09:00; Stop 11/20/18 at 09:35; Status DC Acetaminophen (Tylenol) 1,000 mg Q6HRS PRN PO PAIN/FEVER; Start 11/19/18 at 22:45; Stop 11/20/18 at 12:49; Status DC Tramadol HCl (Ultram) 37.5 mg QHS PO Last administered on 11/21/18 20:57; Start 11/20/18 at 21:00 Acetaminophen (Tylenol) 325 mg QHS PO Last administered on 11/21/18at 20:54; Start 11/20/18 at 21:00 Tramadol HCl (Ultram) 37.5 mg PRN QHS PRN PO PAIN UNREL BY JENNIFER ULTRACET; Start 11/20/18 at 21:00 Acetaminophen (Tylenol) 325 mg PRN QHS PRN PO PAIN UNREL BY JENNIFER ULTRACET; Start 11/20/18 at 21:00 Bupropion HCl (Wellbutrin Sr) 150 mg BID PO Last administered on 11/21/18 20:54; Start 11/20/18 at 10:00 Metformin HCl (Glucophage) 850 mg TIDWMEALS PO Last administered on 11/21/18 17:57; Start 11/20/18 at 09:30 Furosemide (Lasix) 80 mg DAILY PO Last administered on 11/21/18at 09:05; Start 11/20/18 at 10:00 Insulin Glargine (Lantus Syringe) 50 unit BID SQ Last administered on 11/20/18at 12:39; Start 11/20/18 at 10:00; Stop 11/20/18 at 18:37; Status DC Insulin Human Lispro (HumaLOG) 30 units TIDAC SQ Last administered on 11/20/18at 12:39; Start 11/20/18 at 09:30; Stop 11/20/18 at 18:37; Status DC Insulin Human Lispro (HumaLOG) 15 units PRN TID PRN SQ WITH SNACKS; Start 11/20/18 at 09:30 Acetaminophen (Tylenol) 500 mg PRN Q6HRS PRN PO MILD PAIN/FEVER; Start 11/20/18 at 13:00 Acetaminophen (Tylenol) 1,000 mg PRN Q6HRS PRN PO MILD PAIN/FEVER; Start 11/20/18 at 13:00 Insulin Glargine (Lantus Syringe) 40 unit BID SQ Last administered on 11/21/18at 21:05; Start 11/20/18 at 21:00 Insulin Human Lispro (HumaLOG) 25 units TIDAC SQ Last administered on 11/21/18at 12:16; Start 11/21/18 at 07:30 Sodium Chloride 500 ml @ 500 mls/hr 1X ONCE IV Last administered on 11/20/18at 20:24; Start 11/20/18 at 18:45; Stop 11/20/18 at 19:44; Status DC Active Scripts Active Reported Lasix (Furosemide) 80 Mg Tablet 1 Tab PO DAILY Humulin R U-500 Kwikpen (Insulin Regular, Human) 500 Unit/1 Ml Insuln.pen 90 Unit SQ DAILYWSUP Humulin R U-500 Kwikpen (Insulin Regular, Human) 500 Unit/1 Ml Insuln.pen 90 Unit SQ DAILYWLUN Humulin R U-500 Kwikpen (Insulin Regular, Human) 500 Unit/1 Ml Insuln.pen 110 Units SQ DAILYWBKFT Citalopram Hbr (Citalopram Hydrobromide) 20 Mg Tablet 1 Tab PO DAILY Levemir (Insulin Detemir) 100 Unit/1 Ml Vial 50 Unit SQ BID Percocet 10-325 Mg Tablet (Oxycodone/Acetaminophen) 1 Each Tablet 1 Tab PO PRN Q8HRS Novolog Flexpen (Insulin Aspart) 100 Unit/1 Ml Insuln.pen 15 Unit SQ PRN Novolog Flexpen (Insulin Aspart) 100 Unit/1 Ml Insuln.pen 30 Unit SQ TIDWMEALS NITROGLYCERIN SubLingual (Nitroglycerin) 0.4 Mg Tab.subl 0.4 Mg SL PRN Q5MIN PRN Fluoxetine Hcl 40 Mg Capsule 40 Mg PO DAILY Docusate Sodium 100 Mg Capsule 100 Mg PO BID Atorvastatin Calcium 80 Mg Tablet 80 Mg PO HS Acetaminophen 500 Mg Tablet 1-2 Tab PO Q6HRS Lisinopril 5 Mg Tablet 1 Tab PO DAILY Trazodone Hcl 150 Mg Tablet 1 Tab PO QHS PRN Bupropion Hcl Sr (Bupropion Hcl) 150 Mg Tablet.er 150 Mg PO BID Metformin Hcl 850 Mg Tablet 850 Mg PO TID hold med until 11/23/15 Vitals/I & O Vital Sign - Last 24 Hours 11/21/18 11/21/18 11/21/18 11/21/18 09:04 09:05 11:00 15:00 Temp 98.0 97.5 98.0 97.5 Pulse 97 91 72 Resp 20 20 B/P (MAP) 140/45 117/37 (63) 137/47 (77) Pulse Ox 95 91 97 O2 Delivery Room Air Room Air Room Air 11/21/18 11/21/18 11/21/18 11/21/18 19:00 20:00 20:57 21:57 Temp 99.0 99.0 Pulse 94 Resp 20 16 16 B/P (MAP) 129/65 (86) Pulse Ox 94 97 94 O2 Delivery Room Air Room Air Room Air 11/21/18 11/22/18 11/22/18 11/22/18 22:41 00:00 01:36 03:36 Temp 98.3 98.4 98.3 98.4 Pulse 96 95 Resp 22 16 16 22 B/P (MAP) 123/61 (81) 131/61 (84) Pulse Ox 94 94 93 O2 Delivery Room Air Room Air Room Air Room Air 11/22/18 07:00 Temp 97.5 97.5 Pulse 72 Resp 20 B/P (MAP) 113/81 (92) Pulse Ox 98 O2 Delivery Room Air Intake and Output 11/21/18 11/21/18 11/22/18 15:00 23:00 07:00 Intake Total 480 ml 640 ml Output Total 200 ml 400 ml Balance 480 ml -200 ml 240 ml AMEYA CHOI MD Nov 22, 2018 08:46
[2018-11-22] MEDS: FUROSEMIDE 80 MG TABLET. PO SCH (09:00)
[2018-11-22] MEDS: CITALOPRAM 20 MG TABLET. PO SCH (09:00)
[2018-11-22] MEDS: metFORMIN 850 MG TABLET PO SCH ×3 (09:35→17:08)
[2018-11-22] MEDS: CHOLECALCIFEROL (VITAMIN D3) 1,000 UNIT TABLET PO SCH (09:35)
[2018-11-22] MEDS: DOCUSATE SODIUM 100 MG CAPSULE. PO SCH ×2 (09:35→21:07)
[2018-11-22] MEDS: buPROPion SR 150 MG TABLET.SA PO SCH ×2 (09:35→21:07)
[2018-11-22] MEDS: LISINOPRIL 5 MG TABLET. PO SCH (09:36)
[2018-11-22] MEDS: INSULIN GLARGINE SYRINGE. SQ SCH ×2 (09:40→21:13)
[2018-11-22] MEDS: INSULIN LISPRO 300 UNITS/3 ML VIAL. SQ SCH ×3 (09:42→17:11)
[2018-11-22 11:00] VITALS: BP 118/52
[2018-11-22 14:49] VITALS: BP 123/62
[2018-11-22 19:00] VITALS: BP 145/43
[2018-11-22] MEDS: traMADol 50 MG TABLET PO SCH (21:00)
[2018-11-22] MEDS: ACETAMINOPHEN 325 MG TABLET. PO SCH (21:05)
[2018-11-22] MEDS: ATORVASTATIN CALCIUM 40 MG TABLET. PO SCH (21:07)
[2018-11-22 23:03] VITALS: BP 122/58
[2018-11-23] VITALS (7 sets, daily range): BP systolic 122–145; BP diastolic 45–79
[2018-11-23] MEDS: buPROPion SR 150 MG TABLET.SA PO SCH ×2 (09:51→21:05)
[2018-11-23] MEDS: DOCUSATE SODIUM 100 MG CAPSULE. PO SCH ×2 (09:51→21:06)
[2018-11-23] MEDS: CITALOPRAM 20 MG TABLET. PO SCH (09:51)
[2018-11-23] MEDS: CHOLECALCIFEROL (VITAMIN D3) 1,000 UNIT TABLET PO SCH (09:51)
[2018-11-23] MEDS: FUROSEMIDE 80 MG TABLET. PO SCH (09:51)
[2018-11-23] MEDS: LISINOPRIL 5 MG TABLET. PO SCH (09:52)
[2018-11-23] MEDS: metFORMIN 850 MG TABLET PO SCH ×3 (09:52→17:11)
[2018-11-23] MEDS: INSULIN GLARGINE SYRINGE. SQ SCH ×2 (09:58→21:12)
[2018-11-23] MEDS: INSULIN LISPRO 300 UNITS/3 ML VIAL. SQ SCH ×3 (09:59→17:17)
--- NOTE | 2018-11-23 11:19 | PDOC ---
PROGRESS NOTES Chief Complaint Chief Complaint IMPRESSION Achilles tendon injury - he felt something snap in his right heel and has pain and weakness on dorsiflexion. No quinolone exposure r Near complete rupture of the Achilles tendon from the calcaneal insertion, with 3.5 cm proximal retraction. Anterior talofibular and calcaneofibular ligament sprains. ARNULFO GAIT INSTABILITY- 2/2 cast on LLE and right leg weakness Hypertension - cont meds Hyperlipidemia - statin Symptomatic hypoglycemia - his recent U-500 dosing may play a role, will hold this. Obesity - morbid obesity, counseled on weight loss, consider GLP-1 or SGLT-2 H/o Achilles tendon rupture on the left - in cast currently CAD - s/p 4x Coronary bypass surgery 01/2015 PPM in situ - dual chamber, [facility] last download 01/02/2018 normal device function, AFIB burden <1%, V paced 4.5%. No significant arrhythmia. S/p TAVR - 12/2016 Peripheral vascular disease - noted with medical management of bilateral lower extremity disease on non-occlusive studies in 2016 Diabetes - seeing [employer] [facility], was recently started on U-500, has had daily hypoglycemic episodes into the 30s and 40s./// lantus BID and lispro TID schedule with sliding scale while in house. Consider SGLT-2 or GLP-1 Plan: SNF placement. He can follow up with Orthopedic surgery, Dr. Hardy, in 2-3 weeks. non-operative likely partial tear of right achilles tendon, can be placed in CAM boot. NEPHROLOGY CONSULT 27 MIN PT EXAM, CHART REVIEW, > 50% OF TIME SPENT WITH EXAM, CHART REVIEW, PT CARE COORDINATION History of Present Illness History of Present Illness Mr Zazueta is a 63-year-old male w/ PMHx PPM in situ, s/p TAVR, hypertension, hyperlipidemia, obesity, previous Achilles tendon rupture on the left, CAD s/p coronary bypass surgery, peripheral vascular disease, diabetes who has been re covering in a cast from his left achilles rupture who got up and fell and he likely partially ruptured his right Achilles tendon. He is unable to walk and will be admitted for further treatment and diagnosis. 11/21: Seen by ortho, no immediate indication for surgery. Has plans for MRI outpatient, will need his pacer deactivated for this. Still not able to transition or walk well. Needs to have rehab. Low glucose yesterday. His right heel is extremely painful today. He had no further low blood glucose yesterday, insulin adjusted (now he is at 20% of what his outpatient dosing was reported to be). Denies CP or SOB. Looking into skilled facilities. Vitals Vitals Vital Signs Date Time Temp Pulse Resp B/P (MAP) Pulse Ox O2 Delivery O2 Flow Rate FiO2 11/23/18 09:52 85 126/66 11/23/18 08:04 98.7 18 93 Room Air 98.7 Physical Exam General: Alert, Oriented X3 Heart: Regular rate Lungs: Clear, Other Abdomen: Soft, No tenderness Extremities: No edema, Other (her cells pedis 1+ and the right) Skin: Other (he has scattered superficial ulcers at his right calf) Labs LABS MR of the left ankle HISTORY: Achilles tendon pain. TECHNIQUE: Routine multiplanar sequences are obtained. FINDINGS: 1. Complete rupture of the Achilles tendon from the insertion, involving greater than 90 percent of the fibers. There is a very thin irregular remnant of the tendon maintaining continuity. The torn tendon is proximally retracted 3.5 cm. Heterogeneous fluid or hemorrhage within the retrocalcaneal bursa. Moderate size enthesophyte at the calcaneal insertion, with some tendinous calcaneal marrow edema. Peroneal tendons are intact. Mild thickening and signal within the anterior talofibular ligament and calcaneofibular ligament compatible with sprain. Posterior talofibular ligament is intact. The tibiofibular syndesmotic ligaments are intact. Posterior tibial and flexor tendons are intact. No acute medial ligamentous tear. Anterior tibial and extensor tendons are intact. No acute plantar fasciitis. Subtalar joints are mildly degenerative but patent. Tarsal sinus is intact. Talar dome is intact. Diffuse subcutaneous edema around the ankle. IMPRESSION: 1. Near complete rupture of the Achilles tendon from the calcaneal insertion, with 3.5 cm proximal retraction. 2. Anterior talofibular and calcaneofibular ligament sprains. Electronically signed by: Wilfredo Vizcaino MD (11/12/2018 4:39 PM) [facility] DICTATED and SIGNED BY: WILFREDO VIZCAINO MD DATE: 11/12/18 9607 Laboratory Tests Test 11/22/18 16:39 11/22/18 20:31 11/23/18 08:02 Glucose (Fingerstick) 101 mg/dL (70-99) 122 mg/dL (70-99) 178 mg/dL (70-99) Assessment and Plan Assessmemt and Plan Problems Medical Problems: (1) Hypoglycemia Status: Acute (2) Unable to walk Status: Acute * WNL Coordination * No Deficits Activity Tolerance * Fair - Activity Tolerance/ Vitals * no signs/symptoms of distress VSS Sitting Balance * 4 moves 1-2" from COG Standing Balance * 2 balances w/ both UEs Objective Measures Comment * Pt used RW to stand Pain Score * 7 Pain Location * B Achilles Tendons Pain Quality * Sore Supine to Sit Assistance Required * Stand-by Assistance Sit to Supine Assistance Required * Stand-by Assistance Transfer Assistance Required * Stand-by Assistance Transfer Type * Sit to Stand Transfer Assistive Device * Roller Walker Ambulation Comments * Pt. took 3-4 steps away from chair. Educated prior to transfer and reminded he is allowed to transfer only. Sitting Exercises * Long Arc Quads * Marching Sitting Exercises Comments * B x 7 reps Other Information * Pt. up in chair with call light and family available. Rehab Potential to Achieve Goals * Good Learning Preferences * One-on-One Instruction * Demonstration Problem List (body system elements) * Impaired fnctnl mobility * Strength * Obesity * Knowledge-Precautions * Balance * Knowledge-Body Mechanics * Knowledge-safe techniques * Pain Patient condition at conclusion of therapy * Pt in chair * Call light in reach * Phone in reach * PtIn no apparent distress * Pt denies further needs * Visitor with patient Communicated Patient Care With (Name, Title) * ANITRA Hansen Goal 1 - Bed Mobility Assistance Required * Independent Goal 1 Assessment * Appropriate - Continue Goal 2 - Transfers Assistance Required * Independent Goal 2 - Transfer Type * Stand-Pivot Goal 2 Assessment * Appropriate - Continue Goal 5 * LE home exercise program Goal 5 Assessment * Appropriate - Continue Treatment Plan * Therapeutic Exercise * Bed Mobility Training Frequency of Treatment Expected * 6 visits/week Duration of Treatment Expected * 1 week Discharge Recommendations * Detention Unit Discharge Recommendation Comments * will continue to assess Comment Review of Relevant I have reviewed the following items billie (where applicable) has been applied. Labs Laboratory Tests Test 11/21/18 16:50 11/21/18 21:13 11/22/18 07:27 11/22/18 10:29 Glucose (Fingerstick) 89 mg/dL (70-99) 184 mg/dL (70-99) 198 mg/dL (70-99) 221 mg/dL (70-99) Test 11/22/18 16:39 11/22/18 20:31 11/23/18 08:02 Glucose (Fingerstick) 101 mg/dL (70-99) 122 mg/dL (70-99) 178 mg/dL (70-99) Laboratory Tests Test 11/22/18 16:39 11/22/18 20:31 11/23/18 08:02 Glucose (Fingerstick) 101 mg/dL (70-99) 122 mg/dL (70-99) 178 mg/dL (70-99) Microbiology 11/19/18 Urine Culture - Final, Complete 11/19/18 Urine Culture Result 1 (BILLIE) - Final, Complete Medications Current Medications Acetaminophen (Tylenol) 500 mg Q6HRS PRN PO PAIN/FEVER; Start 11/19/18 at 22:00; Stop 11/20/18 at 12:48; Status DC Aspirin (Children'S Aspirin) 81 mg DAILYWBKFT PO ; Start 11/20/18 at 08:00; Stop 11/20/18 at 09:35; Status DC Vitamin D (Vitamin D3) 1,000 unit DAILY PO Last administered on 11/23/18at 09:51; Start 11/20/18 at 09:00 Citalopram Hydrobromide (CeleXA) 20 mg DAILY PO Last administered on 11/23/18at 09:51; Start 11/20/18 at 09:00 Clopidogrel Bisulfate (Plavix) 75 mg DAILY PO ; Start 11/20/18 at 09:00; Stop 11/20/18 at 09:35; Status DC Diclofenac Sodium (Voltaren) 1 clair BID TP ; Start 11/20/18 at 09:00; Stop 1 at 09:35; Status DC Docusate Sodium (Colace) 100 mg BID PO Last administered on 11/23/18at 09:51; Start 11/20/18 at 09:00 Ergocalciferol (Vitamin D2) 50,000 unit QFR PO Last administered on 11/21/18at 17:58; Start 11/21/18 at 16:00 Lisinopril (Prinivil) 5 mg DAILY PO Last administered on 11/23/18at 09:52; Start 11/20/18 at 09:00 Metformin HCl (Glucophage) 850 mg BIDWMEALS PO ; Start 11/20/18 at 08:00; Stop 11/20/18 at 09:35; Status DC Metoprolol Succinate (Toprol Xl) 25 mg DAILY PO ; Start 11/20/18 at 09:00; Stop 11/20/18 at 09:35; Status DC Midodrine (Proamatine) 5 mg DAILY PO ; Start 11/20/18 at 09:00; Stop 11/20/18 at 09:35; Status DC Nitroglycerin (Nitrostat) 0.4 mg PRN Q5MIN PRN SL CHEST PAIN; Start 11/19/18 at 22:00 Oxycodone/ Acetaminophen (Percocet 10/325) 1 tab PRN Q8HRS PRN PO SEVERE PAIN Last administered on 11/22/18at 00:00; Start 11/19/18 at 22:00 Atorvastatin Calcium (Lipitor) 80 mg HS PO Last administered on 11/22/18at 21:07; Start 11/19/18 at 22:45 Bupropion HCl (Wellbutrin Sr) 300 mg DAILY PO ; Start 11/20/18 at 09:00; Stop 11/20/18 at 09:35; Status DC Fluoxetine HCl (PROzac) 40 mg DAILY PO ; Start 11/20/18 at 09:00; Stop 11/20/18 at 09:35; Status DC Non-Formulary Medication (Tramadol Hcl/ Acetaminophen (Tramadol-Acetaminophn 37. 5-325)) mild pain QHS PO ; Start 11/20/18 at 21:00; Status UNV Trazodone HCl (Desyrel) 150 mg PRN QHS PRN PO INSOMNIA Last administered on 11/20/18at 23:30; Start 11/19/18 at 22:00 Triamcinolone Acetonide (Kenalog 0.1%) 1 clair BID TP ; Start 11/20/18 at 09:00; Stop 11/20/18 at 09:35; Status DC Acetaminophen (Tylenol) 1,000 mg Q6HRS PRN PO PAIN/FEVER; Start 11/19/18 at 22:45; Stop 11/20/18 at 12:49; Status DC Tramadol HCl (Ultram) 37.5 mg QHS PO Last administered on 11/21/18 20:57; Start 11/20/18 at 21:00 Acetaminophen (Tylenol) 325 mg QHS PO Last administered on 11/22/18 21:05; Start 11/20/18 at 21:00 Tramadol HCl (Ultram) 37.5 mg PRN QHS PRN PO PAIN UNREL BY JENNIFER ULTRACET; Start 11/20/18 at 21:00 Acetaminophen (Tylenol) 325 mg PRN QHS PRN PO PAIN UNREL BY JENNIFER ULTRACET; Start 11/20/18 at 21:00 Bupropion HCl (Wellbutrin Sr) 150 mg BID PO Last administered on 11/23/18 09:51; Start 11/20/18 at 10:00 Metformin HCl (Glucophage) 850 mg TIDWMEALS PO Last administered on 11/23/18 09:52; Start 11/20/18 at 09:30 Furosemide (Lasix) 80 mg DAILY PO Last administered on 11/23/18 09:51; Start 11/20/18 at 10:00 Insulin Glargine (Lantus Syringe) 50 unit BID SQ Last administered on 11/20/18 12:39; Start 11/20/18 at 10:00; Stop 11/20/18 at 18:37; Status DC Insulin Human Lispro (HumaLOG) 30 units TIDAC SQ Last administered on 11/20/18 12:39; Start 11/20/18 at 09:30; Stop 11/20/18 at 18:37; Status DC Insulin Human Lispro (HumaLOG) 15 units PRN TID PRN SQ WITH SNACKS; Start 11/20/18 at 09:30 Acetaminophen (Tylenol) 500 mg PRN Q6HRS PRN PO MILD PAIN/FEVER; Start 11/20/18 at 13:00 Acetaminophen (Tylenol) 1,000 mg PRN Q6HRS PRN PO MILD PAIN/FEVER; Start 11/20/18 at 13:00 Insulin Glargine (Lantus Syringe) 40 unit BID SQ Last administered on 11/23/18 09:58; Start 11/20/18 at 21:00 Insulin Human Lispro (HumaLOG) 25 units TIDAC SQ Last administered on 10/6/19at 09:59; Start 11/21/18 at 07:30 Sodium Chloride 500 ml @ 500 mls/hr 1X ONCE IV Last administered on 11/20/18at 20:24; Start 11/20/18 at 18:45; Stop 11/20/18 at 19:44; Status DC Active Scripts Active Reported Lasix (Furosemide) 80 Mg Tablet 1 Tab PO DAILY Humulin R U-500 Kwikpen (Insulin Regular, Human) 500 Unit/1 Ml Insuln.pen 90 Unit SQ DAILYWSUP Humulin R U-500 Kwikpen (Insulin Regular, Human) 500 Unit/1 Ml Insuln.pen 90 Unit SQ DAILYWLUN Humulin R U-500 Kwikpen (Insulin Regular, Human) 500 Unit/1 Ml Insuln.pen 110 Units SQ DAILYWBKFT Citalopram Hbr (Citalopram Hydrobromide) 20 Mg Tablet 1 Tab PO DAILY Levemir (Insulin Detemir) 100 Unit/1 Ml Vial 50 Unit SQ BID Percocet 10-325 Mg Tablet (Oxycodone/Acetaminophen) 1 Each Tablet 1 Tab PO PRN Q8HRS Novolog Flexpen (Insulin Aspart) 100 Unit/1 Ml Insuln.pen 15 Unit SQ PRN Novolog Flexpen (Insulin Aspart) 100 Unit/1 Ml Insuln.pen 30 Unit SQ TIDWMEALS NITROGLYCERIN SubLingual (Nitroglycerin) 0.4 Mg Tab.subl 0.4 Mg SL PRN Q5MIN PRN Fluoxetine Hcl 40 Mg Capsule 40 Mg PO DAILY Docusate Sodium 100 Mg Capsule 100 Mg PO BID Atorvastatin Calcium 80 Mg Tablet 80 Mg PO HS Acetaminophen 500 Mg Tablet 1-2 Tab PO Q6HRS Lisinopril 5 Mg Tablet 1 Tab PO DAILY Trazodone Hcl 150 Mg Tablet 1 Tab PO QHS PRN Bupropion Hcl Sr (Bupropion Hcl) 150 Mg Tablet.er 150 Mg PO BID Metformin Hcl 850 Mg Tablet 850 Mg PO TID hold med until 11/23/15 Vitals/I & O Vital Sign - Last 24 Hours 11/22/18 11/22/18 11/22/18 11/22/18 14:49 19:00 20:00 23:03 Temp 98.0 98.7 98.2 98.0 98.7 98.2 Pulse 81 90 69 Resp 20 20 20 B/P (MAP) 123/62 (82) 145/43 (77) 122/58 (79) Pulse Ox 96 92 98 O2 Delivery Room Air Room Air Room Air BiPAP/CPAP 11/23/18 11/23/18 11/23/18 11/23/18 00:03 02:15 03:00 04:04 Temp 97.7 97.7 Pulse 85 Resp 20 B/P (MAP) 126/66 (86) Pulse Ox 98 O2 Delivery BiPAP/CPAP BiPAP/CPAP BiPAP/CPAP BiPAP/CPAP 11/23/18 11/23/18 08:04 09:52 Temp 98.7 98.7 Pulse 81 85 Resp 18 B/P (MAP) 143/57 (85) 126/66 Pulse Ox 93 O2 Delivery Room Air Intake and Output 11/22/18 11/22/18 11/23/18 15:00 23:00 07:00 Intake Total 550 ml 300 ml Output Total 470 ml 250 ml 400 ml Balance 80 ml 50 ml -400 ml DEBRA FARR MD Nov 23, 2018 11:19
[2018-11-23 16:15] LABS: ALBUMIN 3.5 g/dL (3.4-5.0); CALCIUM 9.5 mg/dL (8.5-10.1); CREATININE 1.2 mg/dL (0.7-1.3); GFR 60.8; PHOSPHORUS 3.5 mg/dL (2.6-4.7); POTASSIUM 4.7 mmol/L (3.5-5.1)
[2018-11-23] MEDS: IV NORMAL SALINE 1000ML BAG 1,000 ML IV SCH (17:11)
[2018-11-23] MEDS: ATORVASTATIN CALCIUM 40 MG TABLET. PO SCH (21:05)
[2018-11-23] MEDS: traZODone 50 MG TABLET. PO PRN (21:06)
[2018-11-23] MEDS: traMADol 50 MG TABLET PO SCH (21:06)
[2018-11-23] MEDS: ACETAMINOPHEN 325 MG TABLET. PO SCH (21:06)
[2018-11-24 03:00] VITALS: BP 118/65
[2018-11-24] MEDS: IV NORMAL SALINE 1000ML BAG 1,000 ML IV SCH (06:21)
[2018-11-24 07:00] VITALS: BP 146/68
[2018-11-24] MEDS: LISINOPRIL 5 MG TABLET. PO SCH (08:35)
[2018-11-24] MEDS: buPROPion SR 150 MG TABLET.SA PO SCH (08:35)
[2018-11-24] MEDS: FUROSEMIDE 80 MG TABLET. PO SCH (08:36)
[2018-11-24] MEDS: CITALOPRAM 20 MG TABLET. PO SCH (08:36)
[2018-11-24] MEDS: metFORMIN 850 MG TABLET PO SCH ×2 (08:36→12:07)
[2018-11-24] MEDS: DOCUSATE SODIUM 100 MG CAPSULE. PO SCH (08:36)
[2018-11-24] MEDS: CHOLECALCIFEROL (VITAMIN D3) 1,000 UNIT TABLET PO SCH (08:36)
[2018-11-24] MEDS: INSULIN GLARGINE SYRINGE. SQ SCH (08:46)
[2018-11-24] MEDS: INSULIN LISPRO 300 UNITS/3 ML VIAL. SQ SCH ×2 (08:47→12:09)
[2018-11-24] MEDS ORDERED: ACET500T68 PO (10:12)
--- NOTE | 2018-11-24 10:30 | NUR ---
ASSUMED CARE AT 10 AM. AT BEDSIDE. CALLED PUBLIC RELATIONS REPRESENTATIVE PER REQUEST FOR INSERTS IN BOOT.LUCIANO STATED THAT THEY WILL DO IT AT [facility].
[2018-11-24 11:00] VITALS: BP 151/66
--- NOTE | 2018-11-24 11:17 | PDOC ---
PROGRESS NOTES Chief Complaint Chief Complaint DISCHARGE DX Achilles tendon injury - he felt something snap in his right heel and has pain and weakness on dorsiflexion. No quinolone exposure r Near complete rupture of the Achilles tendon from the calcaneal insertion, with 3.5 cm proximal retraction. Anterior talofibular and calcaneofibular ligament sprains. ARNULFO, vasomotor nephropathy GAIT INSTABILITY- 2/2 cast on LLE and right leg weakness Hypertension - cont meds Hyperlipidemia - statin Symptomatic hypoglycemia - his recent U-500 dosing may play a role, will hold this. Obesity - morbid obesity, counseled on weight loss, consider GLP-1 or SGLT-2 H/o Achilles tendon rupture on the left - in cast currently CAD - s/p 4x Coronary bypass surgery 01/2015 PPM in situ - dual chamber, [facility] last download 01/02/2018 normal device function, AFIB burden <1%, V paced 4.5%. No significant arrhythmia. S/p TAVR - 12/2016 Peripheral vascular disease - noted with medical management of bilateral lower extremity disease on non-occlusive studies in 2016 Diabetes - seeing [facility], was recently started on U-500, has had daily hypoglycemic episodes into the 30s and 40s./// lantus BID and lispro TID schedule with sliding scale while in house. Consider SGLT-2 or GLP-1 Plan: SNF placement. He can follow up with Orthopedic surgery, Dr. Hardy, in 2-3 weeks. non-operative likely partial tear of right achilles tendon, can be placed in CAM boot. NEPHROLOGY CONSULT 34 MIN PT EXAM, CHART REVIEW D/C PLANNING , > 50% OF TIME SPENT WITH EXAM, CHART REVIEW, PT CARE COORDINATION History of Present Illness History of Present Illness Mr Zazueta is a 63-year-old male w/ PMHx PPM in situ, s/p TAVR, hypertension, hyperlipidemia, obesity, previous Achilles tendon rupture on the left, CAD s/p coronary bypass surgery, peripheral vascular disease, diabetes who has been recovering in a cast from his left achilles rupture who got up and fell and he likely partially ruptured his right Achilles tendon. He is unable to walk and will be admitted for further treatment and diagnosis. 11/21: Seen by ortho, no immediate indication for surgery. Has plans for MRI outpatient, will need his pacer deactivated for this. Still not able to transition or walk well. Needs to have rehab. Low glucose yesterday. His right heel is extremely painful today. He had no further low blood glucose yesterday, insulin adjusted (now he is at 20% of what his outpatient dosing was reported to be). Denies CP or SOB. Looking into skilled facilities. Vitals Vitals Vital Signs Date Time Temp Pulse Resp B/P (MAP) Pulse Ox O2 Delivery O2 Flow Rate FiO2 11/24/18 08:35 19 146/68 11/24/18 08:00 Room Air 11/24/18 07:00 98.0 19 93 98.0 Physical Exam General: Alert, Oriented X3, Cooperative Heart: Regular rate Lungs: Clear, Other Abdomen: Normal bowel sounds, Soft, No tenderness Extremities: No cyanosis, No edema, Other (her cells pedis 1+ and the right) Skin: Other (he has scattered superficial ulcers at his right calf) Labs LABS Laboratory Tests Test 11/23/18 12:10 11/23/18 15:35 11/23/18 16:52 11/23/18 20:28 Glucose (Fingerstick) 185 mg/dL (70-99) 76 mg/dL (70-99) 72 mg/dL (70-99) Sodium Level 139 mmol/L (136-145) Potassium Level 4.7 mmol/L (3.5-5.1) Chloride Level 100 mmol/L (98-107) Carbon Dioxide Level 30 mmol/L (21-32) Anion Gap 9 (6-14) Blood Urea Nitrogen 21 mg/dL (8-26) Creatinine 1.2 mg/dL (0.7-1.3) Estimated GFR (Cockcroft-Gault) 60.8 Glucose Level 64 mg/dL (70-99) Calcium Level 9.5 mg/dL (8.5-10.1) Phosphorus Level 3.5 mg/dL (2.6-4.7) Albumin 3.5 g/dL (3.4-5.0) Test 11/24/18 07:26 Glucose (Fingerstick) 174 mg/dL (70-99) Assessment and Plan Assessmemt and Plan Problems Medical Problems: (1) Hypoglycemia Status: Acute (2) Unable to walk Status: Acute Comment Review of Relevant I have reviewed the following items billie (where applicable) has been applied. Labs Laboratory Tests Test 11/22/18 16:39 11/22/18 20:31 11/23/18 08:02 11/23/18 12:10 Glucose (Fingerstick) 101 mg/dL (70-99) 122 mg/dL (70-99) 178 mg/dL (70-99) 185 mg/dL (70-99) Test 11/23/18 15:35 11/23/18 16:52 11/23/18 20:28 11/24/18 07:26 Sodium Level 139 mmol/L (136-145) Potassium Level 4.7 mmol/L (3.5-5.1) Chloride Level 100 mmol/L (98-107) Carbon Dioxide Level 30 mmol/L (21-32) Anion Gap 9 (6-14) Blood Urea Nitrogen 21 mg/dL (8-26) Creatinine 1.2 mg/dL (0.7-1.3) Estimated GFR (Cockcroft-Gault) 60.8 Glucose Level 64 mg/dL (70-99) Calcium Level 9.5 mg/dL (8.5-10.1) Phosphorus Level 3.5 mg/dL (2.6-4.7) Albumin 3.5 g/dL (3.4-5.0) Glucose (Fingerstick) 76 mg/dL (70-99) 72 mg/dL (70-99) 174 mg/dL (70-99) Laboratory Tests Test 11/23/18 12:10 11/23/18 15:35 11/23/18 16:52 11/23/18 20:28 Glucose (Fingerstick) 185 mg/dL (70-99) 76 mg/dL (70-99) 72 mg/dL (70-99) Sodium Level 139 mmol/L (136-145) Potassium Level 4.7 mmol/L (3.5-5.1) Chloride Level 100 mmol/L (98-107) Carbon Dioxide Level 30 mmol/L (21-32) Anion Gap 9 (6-14) Blood Urea Nitrogen 21 mg/dL (8-26) Creatinine 1.2 mg/dL (0.7-1.3) Estimated GFR (Cockcroft-Gault) 60.8 Glucose Level 64 mg/dL (70-99) Calcium Level 9.5 mg/dL (8.5-10.1) Phosphorus Level 3.5 mg/dL (2.6-4.7) Albumin 3.5 g/dL (3.4-5.0) Test 11/24/18 07:26 Glucose (Fingerstick) 174 mg/dL (70-99) Microbiology 11/19/18 Urine Culture - Final, Complete 11/19/18 Urine Culture Result 1 (BILLIE) - Final, Complete Medications Current Medications Acetaminophen (Tylenol) 500 mg Q6HRS PRN PO PAIN/FEVER; Start 11/19/18 at 22:00; Stop 11/20/18 at 12:48; Status DC Aspirin (Children'S Aspirin) 81 mg DAILYWBKFT PO ; Start 11/20/18 at 08:00; Stop 11/20/18 at 09:35; Status DC Vitamin D (Vitamin D3) 1,000 unit DAILY PO Last administered on 11/24/18at 08: 36; Start 11/20/18 at 09:00 Citalopram Hydrobromide (CeleXA) 20 mg DAILY PO Last administered on 11/24/18at 08:36; Start 11/20/18 at 09:00 Clopidogrel Bisulfate (Plavix) 75 mg DAILY PO ; Start 11/20/18 at 09:00; Stop 11/20/18 at 09:35; Status DC Diclofenac Sodium (Voltaren) 1 clair BID TP ; Start 11/20/18 at 09:00; Stop 11/20/18 at 09:35; Status DC Docusate Sodium (Colace) 100 mg BID PO Last administered on 11/24/18at 08:36; Start 11/20/18 at 09:00 Ergocalciferol (Vitamin D2) 50,000 unit QFR PO Last administered on 11/21/18at 17:58; Start 11/21/18 at 16:00 Lisinopril (Prinivil) 5 mg DAILY PO Last administered on 11/24/18at 08:35; S tart 11/20/18 at 09:00 Metformin HCl (Glucophage) 850 mg BIDWMEALS PO ; Start 11/20/18 at 08:00; Stop 11/20/18 at 09:35; Status DC Metoprolol Succinate (Toprol Xl) 25 mg DAILY PO ; Start 11/20/18 at 09:00; Stop 11/20/18 at 09:35; Status DC Midodrine (Proamatine) 5 mg DAILY PO ; Start 11/20/18 at 09:00; Stop 11/20/18 at 09:35; Status DC Nitroglycerin (Nitrostat) 0.4 mg PRN Q5MIN PRN SL CHEST PAIN; Start 11/19/18 at 22:00 Oxycodone/ Acetaminophen (Percocet 10/325) 1 tab PRN Q8HRS PRN PO SEVERE PAIN Last administered on 11/22/18at 00:00; Start 11/19/18 at 22:00 Atorvastatin Calcium (Lipitor) 80 mg HS PO Last administered on 11/23/18at 21:05; Start 11/19/18 at 22:45 Bupropion HCl (Wellbutrin Sr) 300 mg DAILY PO ; Start 11/20/18 at 09:00; Stop 11/20/18 at 09:35; Status DC Fluoxetine HCl (PROzac) 40 mg DAILY PO ; Start 11/20/18 at 09:00; Stop 11/20/18 at 09:35; Status DC Non-Formulary Medication (Tramadol Hcl/ Acetaminophen (Tramadol-Acetaminophn 37.5-325)) mild pain QHS PO ; Start 11/20/18 at 21:00; Status UNV Trazodone HCl (Desyrel) 150 mg PRN QHS PRN PO INSOMNIA Last administered on 11/23/18at 21:06; Start 11/19/18 at 22:00 Triamcinolone Acetonide (Kenalog 0.1%) 1 clair BID TP ; Start 11/20/18 at 09:00; Stop 11/20/18 at 09:35; Status DC Acetaminophen (Tylenol) 1,000 mg Q6HRS PRN PO PAIN/FEVER; Start 11/19/18 at 22:45; Stop 11/20/18 at 12:49; Status DC Tramadol HCl (Ultram) 37.5 mg QHS PO Last administered on 11/23/18at 21:06; Start 11/20/18 at 21:00 Acetaminophen (Tylenol) 325 mg QHS PO Last administered on 11/23/18at 21:06; Start 11/20/18 at 21:00 Tramadol HCl (Ultram) 37.5 mg PRN QHS PRN PO PAIN UNREL BY JENNIFER ULTRACET; Start 11/20/18 at 21:00 Acetaminophen (Tylenol) 325 mg PRN QHS PRN PO PAIN UNREL BY [facility] ULTRACET; Start 11/20/18 at 21:00 Bupropion HCl (Wellbutrin Sr) 150 mg BID PO Last administered on 11/24/18 08:35; Start 11/20/18 at 10:00 Metformin HCl (Glucophage) 850 mg TIDWMEALS PO Last administered on 11/24/18 08:36; Start 11/20/18 at 09:30 Furosemide (Lasix) 80 mg DAILY PO Last administered on 11/24/18 08:36; Start 11/20/18 at 10:00 Insulin Glargine (Lantus Syringe) 50 unit BID SQ Last administered on 11/20/18 12:39; Start 11/20/18 at 10:00; Stop 11/20/18 at 18:37; Status DC Insulin Human Lispro (HumaLOG) 30 units TIDAC SQ Last administered on 11/20/18 12:39; Start 11/20/18 at 09:30; Stop 11/20/18 at 18:37; Status DC Insulin Human Lispro (HumaLOG) 15 units PRN TID PRN SQ WITH SNACKS; Start 11/20/18 at 09:30 Acetaminophen (Tylenol) 500 mg PRN Q6HRS PRN PO MILD PAIN/FEVER; Start 11/20/18 at 13:00 Acetaminophen (Tylenol) 1,000 mg PRN Q6HRS PRN PO MILD PAIN/FEVER; Start 11/20/18 at 13:00 Insulin Glargine (Lantus Syringe) 40 unit BID SQ Last administered on 11/24/18 08:46; Start 11/20/18 at 21:00 Insulin Human Lispro (HumaLOG) 25 units TIDAC SQ Last administered on 11/24/18 08:47; Start 11/21/18 at 07:30 Sodium Chloride 500 ml @ 500 mls/hr 1X ONCE IV Last administered on 11/20/18 20:24; Start 11/20/18 at 18:45; Stop 11/20/18 at 19:44; Status DC Sodium Chloride 1,000 ml @ 75 mls/hr [id number] IV Last administered on 11/24/18at 06:21; Start 11/23/18 at 16:30 Active Scripts Active Reported Lasix (Furosemide) 80 Mg Tablet 1 Tab PO DAILY Humulin R U-500 Kwikpen (Insulin Regular, Human) 500 Unit/1 Ml Insuln.pen 90 Unit SQ DAILYWSUP Humulin R U-500 Kwikpen (Insulin Regular, Human) 500 Unit/1 Ml Insuln.pen 90 Unit SQ DAILYWLUN Humulin R U-500 Kwikpen (Insulin Regular, Human) 500 Unit/1 Ml Insuln.pen 110 Units SQ DAILYWBKFT Citalopram Hbr (Citalopram Hydrobromide) 20 Mg Tablet 1 Tab PO DAILY Levemir (Insulin Detemir) 100 Unit/1 Ml Vial 50 Unit SQ BID Percocet 10-325 Mg Tablet (Oxycodone/Acetaminophen) 1 Each Tablet 1 Tab PO PRN Q8HRS Novolog Flexpen (Insulin Aspart) 100 Unit/1 Ml Insuln.pen 15 Unit SQ PRN Novolog Flexpen (Insulin Aspart) 100 Unit/1 Ml Insuln.pen 30 Unit SQ TIDWMEALS NITROGLYCERIN SubLingual (Nitroglycerin) 0.4 Mg Tab.subl 0.4 Mg SL PRN Q5MIN PRN Fluoxetine Hcl 40 Mg Capsule 40 Mg PO DAILY Docusate Sodium 100 Mg Capsule 100 Mg PO BID Atorvastatin Calcium 80 Mg Tablet 80 Mg PO HS Acetaminophen 500 Mg Tablet 1-2 Tab PO Q6HRS Lisinopril 5 Mg Tablet 1 Tab PO DAILY Trazodone Hcl 150 Mg Tablet 1 Tab PO QHS PRN Bupropion Hcl Sr (Bupropion Hcl) 150 Mg Tablet.er 150 Mg PO BID Metformin Hcl 850 Mg Tablet 850 Mg PO TID hold med until 11/23/15 Vitals/I & O Vital Sign - Last 24 Hours 11/23/18 11/23/18 11/23/18 11/23/18 11:45 15:15 19:00 20:00 Temp 98.6 98.4 99.2 98.6 98.4 99.2 Pulse 91 83 64 Resp 20 20 B/P (MAP) 145/74 (97) 124/79 (94) 122/58 (79) Pulse Ox 93 94 95 O2 Delivery Room Air Room Air Room Air Room Air 11/23/18 11/24/18 11/24/18 11/24/18 23:00 03:00 07:00 08:00 Temp 97.3 97.5 98.0 97.3 97.5 98.0 Pulse 87 98 19 Resp 20 20 19 B/P (MAP) 126/45 (72) 118/65 (82) 146/68 (94) Pulse Ox 97 95 93 O2 Delivery BiPAP/CPAP Room Air Room Air Room Air 11/24/18 08:35 Pulse 19 B/P (MAP) 146/68 Intake and Output 11/23/18 11/23/18 11/24/18 15:00 23:00 07:00 Intake Total 200 ml 100 ml 1000 ml Output Total 600 ml 1000 ml Balance -400 ml 100 ml 0 ml DEBRA FARR MD Nov 24, 2018 11:17
--- NOTE | 2018-11-24 11:22 | PDOC2 ---
CONSULT Date of Consult Date of Consult DATE: 11/24/18 TIME: 11:19 History of Present Illness Reason for Visit: THIS IS A 63 YR OLD WITH LEFT ANKLE PAIN AND ORTHO EVAL ONGOING FOR POSSIBLE ACHILLES TENDON TEAR. RENAL CONSULT ASKED DUE TO CR OF 1.7 ON ADMIT. WITH MILD HYDRATION CR DOWN TO NL NOW. LYTES STABLE. HEMODYNAMICALLY STABLE. UA CLEAR FOR ANY PROTEIN OR BLOOD Past Medical History Cardiovascular: CAD, HTN, Syncope, Hyperlipidemia, Aortic stenosis, Other Pulmonary: COPD, Other CENTRAL NERVOUS SYSTEM: Periperal neuropathy GI: GERD Hepatobiliary: Cholelithiasis Psych: Depression Musculoskeletal: low back pain, Osteoarthritis Rheumatologic: Fibromyalgia Renal/: No pertinent hx Endocrine: Diabetes Past Surgical History Past Surgical History: Pacemaker, Appendectomy, Arthroscopy, Cholecystectomy, CABG, Other Family History Family History: Heart Disease Social History ALCOHOL: none Drugs: None Lives: Homeless Current Problem List Problem List Problems Medical Problems: (1) Hypoglycemia Status: Acute (2) Unable to walk Status: Acute Current Medications Current Medications Current Medications Acetaminophen (Tylenol) 500 mg Q6HRS PRN PO PAIN/FEVER; Start 11/19/18 at 22:00; Stop 11/20/18 at 12:48; Status DC Aspirin (Children'S Aspirin) 81 mg DAILYWBKFT PO ; Start 11/20/18 at 08:00; Stop 11/20/18 at 09:35; Status DC Vitamin D (Vitamin D3) 1,000 unit DAILY PO Last administered on 11/24/18at 08:36; Start 11/20/18 at 09:00 Citalopram Hydrobromide (CeleXA) 20 mg DAILY PO Last administered on 11/24/18at 08:36; Start 11/20/18 at 09:00 Clopidogrel Bisulfate (Plavix) 75 mg DAILY PO ; Start 11/20/18 at 09:00; Stop 11/20/18 at 09:35; Status DC Diclofenac Sodium (Voltaren) 1 clair BID TP ; Start 11/20/18 at 09:00; Stop 11/20/18 at 09:35; Status DC Docusate Sodium (Colace) 100 mg BID PO Last administered on 11/24/18at 08:36; Start 11/20/18 at 09:00 Ergocalciferol (Vitamin D2) 50,000 unit QFR PO Last administered on 11/21/18at 17:58; Start 11/21/18 at 16:00 Lisinopril (Prinivil) 5 mg DAILY PO Last administered on 11/24/18at 08:35; Start 11/20/18 at 09:00 Metformin HCl (Glucophage) 850 mg BIDWMEALS PO ; Start 11/20/18 at 08:00; Stop 11/20/18 at 09:35; Status DC Metoprolol Succinate (Toprol Xl) 25 mg DAILY PO ; Start 11/20/18 at 09:00; Stop 11/20/18 at 09:35; Status DC Midodrine (Proamatine) 5 mg DAILY PO ; Start 11/20/18 at 09:00; Stop 11/20/18 at 09:35; Status DC Nitroglycerin (Nitrostat) 0.4 mg PRN Q5MIN PRN SL CHEST PAIN; Start 11/19/18 at 22:00 Oxycodone/ Acetaminophen (Percocet 10/325) 1 tab PRN Q8HRS PRN PO SEVERE PAIN Last administered on 11/22/18at 00:00; Start 11/19/18 at 22:00 Atorvastatin Calcium (Lipitor) 80 mg HS PO Last administered on 11/23/18at 21:05; Start 11/19/18 at 22:45 Bupropion HCl (Wellbutrin Sr) 300 mg DAILY PO ; Start 11/20/18 at 09:00; Stop 11/20/18 at 09:35; Status DC Fluoxetine HCl (PROzac) 40 mg DAILY PO ; Start 11/20/18 at 09:00; Stop 11/20/18 at 09:35; Status DC Non-Formulary Medication (Tramadol Hcl/ Acetaminophen (Tramadol-Acetaminophn 37.5-325)) mild pain QHS PO ; Start 11/20/18 at 21:00; Status UNV Trazodone HCl (Desyrel) 150 mg PRN QHS PRN PO INSOMNIA Last administered on 11/23/18at 21:06; Start 11/19/18 at 22:00 Triamcinolone Acetonide (Kenalog 0.1%) 1 clair BID TP ; Start 11/20/18 at 09:00; Stop 11/20/18 at 09:35; Status DC Acetaminophen (Tylenol) 1,000 mg Q6HRS PRN PO PAIN/FEVER; Start 11/19/18 at 22:45; Stop 11/20/18 at 12:49; Status DC Tramadol HCl (Ultram) 37.5 mg QHS PO Last administered on 11/23/18 21:06; Start 11/20/18 at 21:00 Acetaminophen (Tylenol) 325 mg QHS PO Last administered on 11/23/18 21:06; Start 11/20/18 at 21:00 Tramadol HCl (Ultram) 37.5 mg PRN QHS PRN PO PAIN UNREL BY JENNIFER ULTRACET; Start 11/20/18 at 21:00 Acetaminophen (Tylenol) 325 mg PRN QHS PRN PO PAIN UNREL BY JENNIFER ULTRACET; Start 11/20/18 at 21:00 Bupropion HCl (Wellbutrin Sr) 150 mg BID PO Last administered on 11/24/18 08:35; Start 11/20/18 at 10:00 Metformin HCl (Glucophage) 850 mg TIDWMEALS PO Last administered on 11/24/18 08:36; Start 11/20/18 at 09:30 Furosemide (Lasix) 80 mg DAILY PO Last administered on 11/24/18 08:36; Start 11/20/18 at 10:00 Insulin Glargine (Lantus Syringe) 50 unit BID SQ Last administered on 11/20/18 12:39; Start 11/20/18 at 10:00; Stop 11/20/18 at 18:37; Status DC Insulin Human Lispro (HumaLOG) 30 units TIDAC SQ Last administered on 11/20/18 12:39; Start 11/20/18 at 09:30; Stop 11/20/18 at 18:37; Status DC Insulin Human Lispro (HumaLOG) 15 units PRN TID PRN SQ WITH SNACKS; Start 11/20/18 at 09:30 Acetaminophen (Tylenol) 500 mg PRN Q6HRS PRN PO MILD PAIN/FEVER; Start 11/20/18 at 13:00 Acetaminophen (Tylenol) 1,000 mg PRN Q6HRS PRN PO MILD PAIN/FEVER; Start 11/20/18 at 13:00 Insulin Glargine (Lantus Syringe) 40 unit BID SQ Last administered on 10/7/19at 08:46; Start 11/20/18 at 21:00 Insulin Human Lispro (HumaLOG) 25 units TIDAC SQ Last administered on 11/24/18at 08:47; Start 11/21/18 at 07:30 Sodium Chloride 500 ml @ 500 mls/hr 1X ONCE IV Last administered on 11/20/18at 20:24; Start 11/20/18 at 18:45; Stop 11/20/18 at 19:44; Status DC Sodium Chloride 1,000 ml @ 75 mls/hr [id number] IV Last administered on 11/24/18at 06:21; Start 11/23/18 at 16:30 Active Scripts Active Reported Lasix (Furosemide) 80 Mg Tablet 1 Tab PO DAILY Humulin R U-500 Kwikpen (Insulin Regular, Human) 500 Unit/1 Ml Insuln.pen 90 Unit SQ DAILYWSUP Humulin R U-500 Kwikpen (Insulin Regular, Human) 500 Unit/1 Ml Insuln.pen 90 Unit SQ DAILYWLUN Humulin R U-500 Kwikpen (Insulin Regular, Human) 500 Unit/1 Ml Insuln.pen 110 Units SQ DAILYWBKFT Citalopram Hbr (Citalopram Hydrobromide) 20 Mg Tablet 1 Tab PO DAILY Levemir (Insulin Detemir) 100 Unit/1 Ml Vial 50 Unit SQ BID Percocet 10-325 Mg Tablet (Oxycodone/Acetaminophen) 1 Each Tablet 1 Tab PO PRN Q8HRS Novolog Flexpen (Insulin Aspart) 100 Unit/1 Ml Insuln.pen 15 Unit SQ PRN Novolog Flexpen (Insulin Aspart) 100 Unit/1 Ml Insuln.pen 30 Unit SQ TIDWMEALS NITROGLYCERIN SubLingual (Nitroglycerin) 0.4 Mg Tab.subl 0.4 Mg SL PRN Q5MIN PRN Fluoxetine Hcl 40 Mg Capsule 40 Mg PO DAILY Docusate Sodium 100 Mg Capsule 100 Mg PO BID Atorvastatin Calcium 80 Mg Tablet 80 Mg PO HS Acetaminophen 500 Mg Tablet 1-2 Tab PO Q6HRS Lisinopril 5 Mg Tablet 1 Tab PO DAILY Trazodone Hcl 150 Mg Tablet 1 Tab PO QHS PRN Bupropion Hcl Sr (Bupropion Hcl) 150 Mg Tablet.er 150 Mg PO BID Metformin Hcl 850 Mg Tablet 850 Mg PO TID hold med until 11/23/15 Allergies Allergies: Coded Allergies: cortisone (Verified Allergy, Intermediate, Pt had swelling at injection site, 02/03/15) ROS General: YES: Fatigue, Malaise HEENT: YES: Heacaches ALLERGY AND IMMUNOLOGY: YES: Seasonal Allergies Gastrointestinal: Yes Constipation Genitourinary: YES Other (NOCTURIA) Musculoskeletal: Yes Joint Pain, Yes Muscular Weakness Neurological: Yes Weakness Skin: Yes Dry Skin Physical Exam General: Alert, Oriented X3, Cooperative, No acute distress HEENT: Atraumatic, PERRLA Lungs: Clear to auscultation, Normal air movement Heart: Regular rate Abdomen: Normal bowel sounds, Soft, No tenderness Skin: No breakdown Neuro: Normal speech Psych/Mental Status: Mental status NL, Mood NL MUSCULOSKELETAL: No deformity Vitals VITALS Vital Signs Date Time Temp Pulse Resp B/P (MAP) Pulse Ox O2 Delivery O2 Flow Rate FiO2 11/24/18 11:00 98.0 85 19 151/66 (94) 93 Room Air 98.0 Labs Labs Laboratory Tests Test 11/22/18 16:39 11/22/18 20:31 11/23/18 08:02 11/23/18 12:10 Glucose (Fingerstick) 101 mg/dL (70-99) 122 mg/dL (70-99) 178 mg/dL (70-99) 185 mg/dL (70-99) Test 11/23/18 15:35 11/23/18 16:52 11/23/18 20:28 11/24/18 07:26 Sodium Level 139 mmol/L (136-145) Potassium Level 4.7 mmol/L (3.5-5.1) Chloride Level 100 mmol/L (98-107) Carbon Dioxide Level 30 mmol/L (21-32) Anion Gap 9 (6-14) Blood Urea Nitrogen 21 mg/dL (8-26) Creatinine 1.2 mg/dL (0.7-1.3) Estimated GFR (Cockcroft-Gault) 60.8 Glucose Level 64 mg/dL (70-99) Calcium Level 9.5 mg/dL (8.5-10.1) Phosphorus Level 3.5 mg/dL (2.6-4.7) Albumin 3.5 g/dL (3.4-5.0) Glucose (Fingerstick) 76 mg/dL (70-99) 72 mg/dL (70-99) 174 mg/dL (70-99) Laboratory Tests Test 11/23/18 12:10 11/23/18 15:35 11/23/18 16:52 11/23/18 20:28 Glucose (Fingerstick) 185 mg/dL (70-99) 76 mg/dL (70-99) 72 mg/dL (70-99) Sodium Level 139 mmol/L (136-145) Potassium Level 4.7 mmol/L (3.5-5.1) Chloride Level 100 mmol/L (98-107) Carbon Dioxide Level 30 mmol/L (21-32) Anion Gap 9 (6-14) Blood Urea Nitrogen 21 mg/dL (8-26) Creatinine 1.2 mg/dL (0.7-1.3) Estimated GFR (Cockcroft-Gault) 60.8 Glucose Level 64 mg/dL (70-99) Calcium Level 9.5 mg/dL (8.5-10.1) Phosphorus Level 3.5 mg/dL (2.6-4.7) Albumin 3.5 g/dL (3.4-5.0) Test 11/24/18 07:26 Glucose (Fingerstick) 174 mg/dL (70-99) Assessment/Plan Assessment/Plan IMP DEHYDRATION ARNULFO-RESOLVED ACHILLES TENDON TEAR PLAN CONT IVF NEEDED ARNULFO RESOLVED WILL SIGN OFF PLEASE CALL IF NEEDED MANISH KIRKPATRICK MD Nov 24, 2018 11:22
--- NOTE | 2018-11-24 12:42 | NUR ---
SW following pt. Pt has been accepted at [facility] and facility will have a bed available upon dc. SW discussed pt will need Bariatric bed. Physician notified regarding acceptance.
--- NOTE | 2018-11-24 13:01 | PDOC3 ---
Discharge Summary Date of Admission: Nov 20, 2018 Date of Discharge: Nov 24, 2018 Follow-Up: 1-2 days Admitting Diagnosis comment: DISCHARGE DX Achilles tendon injury - he felt something snap in his right heel and has pain and weakness on dorsiflexion. No quinolone exposure r Near complete rupture of the Achilles tendon from the calcaneal insertion, with 3.5 cm proximal retraction. Anterior talofibular and calcaneofibular ligament sprains. ARNULFO, vasomotor nephropathy GAIT INSTABILITY- 2/2 cast on LLE and right leg weakness Hypertension - cont meds Hyperlipidemia - statin Symptomatic hypoglycemia - his recent U-500 dosing may play a role, will hold this. Obesity - morbid obesity, counseled on weight loss, consider GLP-1 or SGLT-2 H/o Achilles tendon rupture on the left - in cast currently CAD - s/p 4x Coronary bypass surgery 01/2015 PPM in situ - dual chamber, [facility] last download 01/02/2018 normal device function, AFIB burden <1%, V paced 4.5%. No significant arrhythmia. 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 Consider SGLT-2 or GLP-1 Plan: SNF placement. He can follow up with Orthopedic surgery, Dr. Hardy, in 2-3 weeks. non-operative likely partial tear of right achilles tendon, can be placed in CAM boot. NEPHROLOGY CONSULT 34 MIN PT EXAM, CHART REVIEW D/C PLANNING , > 50% OF TIME SPENT WITH EXAM, CHART REVIEW, PT CARE COORDINATION D/C TO [facility] History of Present Illness History of Present Illness Mr Zazueta is a 63-year-old male w/ PMHx PPM in situ, s/p TAVR, hypertension, hyperlipidemia, obesity, previous Achilles tendon rupture on the left, CAD s/p coronary bypass surgery, peripheral vascular disease, diabetes who has been recovering in a cast from his left achilles rupture who got up and fell and he likely partially ruptured his right Achilles tendon. He is unable to walk and will be admitted for further treatment and diagnosis. 11/21: Seen by ortho, no immediate indication for surgery. Has plans for MRI outpatient, will need his pacer deactivated for this. Still not able to transition or walk well. Needs to have rehab. FINAL DIAGNOSIS Problems Medical Problems: (1) Hypoglycemia Status: Acute (2) Unable to walk Status: Acute Brief Hospital Course Mr. Zazueta is a 63 old [sex] who presented with [ GAIT INSTABILITY] CONDITION AT DISCHARGE: Improved Discharge Medications Current Medications Acetaminophen (Tylenol) 500 mg Q6HRS PRN PO PAIN/FEVER; Start 11/19/18 at 22:00; Stop 11/20/18 at 12:48; Status DC Aspirin (Children'S Aspirin) 81 mg DAILYWBKFT PO ; Start 11/20/18 at 08:00; Stop 11/20/18 at 09:35; Status DC Vitamin D (Vitamin D3) 1,000 unit DAILY PO Last administered on 11/24/18at 08:36; Start 11/20/18 at 09:00 Citalopram Hydrobromide (CeleXA) 20 mg DAILY PO Last administered on 11/24/18at 08:36; Start 11/20/18 at 09:00 Clopidogrel Bisulfate (Plavix) 75 mg DAILY PO ; Start 11/20/18 at 09:00; Stop 11/20/18 at 09:35; Status DC Diclofenac Sodium (Voltaren) 1 clair BID TP ; Start 11/20/18 at 09:00; Stop 11/20/18 at 09:35; Status DC Docusate Sodium (Colace) 100 mg BID PO Last administered on 11/24/18at 08:36; Start 11/20/18 at 09:00 Ergocalciferol (Vitamin D2) 50,000 unit QFR PO Last administered on 11/21/18at 17:58; Start 11/21/18 at 16:00 Lisinopril (Prinivil) 5 mg DAILY PO Last administered on 11/24/18at 08:35; Start 11/20/18 at 09:00 Metformin HCl (Glucophage) 850 mg BIDWMEALS PO ; Start 11/20/18 at 08:00; Stop 11/20/18 at 09:35; Status DC Metoprolol Succinate (Toprol Xl) 25 mg DAILY PO ; Start 11/20/18 at 09:00; Stop 11/20/18 at 09:35; Status DC Midodrine (Proamatine) 5 mg DAILY PO ; Start 11/20/18 at 09:00; Stop 11/20/18 at 09:35; Status DC Nitroglycerin (Nitrostat) 0.4 mg PRN Q5MIN PRN SL CHEST PAIN; Start 11/19/18 at 22:00 Oxycodone/ Acetaminophen (Percocet 10/325) 1 tab PRN Q8HRS PRN PO SEVERE PAIN Last administered on 11/22/18at 00:00; Start 11/19/18 at 22:00 Atorvastatin Calcium (Lipitor) 80 mg HS PO Last administered on 11/23/18at 21:05; Start 11/19/18 at 22:45 Bupropion HCl (Wellbutrin Sr) 300 mg DAILY PO ; Start 11/20/18 at 09:00; Stop 11/20/18 at 09:35; Status DC Fluoxetine HCl (PROzac) 40 mg DAILY PO ; Start 11/20/18 at 09:00; Stop 11/20/18 at 09:35; Status DC Non-Formulary Medication (Tramadol Hcl/ Acetaminophen (Tramadol-Acetaminophn 37.5-325)) mild pain QHS PO ; Start 11/20/18 at 21:00; Status UNV Trazodone HCl (Desyrel) 150 mg PRN QHS PRN PO INSOMNIA Last administered on 11/23/18at 21:06; Start 11/19/18 at 22:00 Triamcinolone Acetonide (Kenalog 0.1%) 1 clair BID TP ; Start 11/20/18 at 09:00; Stop 11/20/18 at 09:35; Status DC Acetaminophen (Tylenol) 1,000 mg Q6HRS PRN PO PAIN/FEVER; Start 11/19/18 at 22:45; Stop 11/20/18 at 12:49; Status DC Tramadol HCl (Ultram) 37.5 mg QHS PO Last administered on 11/23/18at 21:06; Start 11/20/18 at 21:00 Acetaminophen (Tylenol) 325 mg QHS PO Last administered on 11/23/18at 21:06; Start 11/20/18 at 21:00 Tramadol HCl (Ultram) 37.5 mg PRN QHS PRN PO PAIN UNREL BY JENNIFER ULTRACET; Start 11/20/18 at 21:00 Acetaminophen (Tylenol) 325 mg PRN QHS PRN PO PAIN UNREL BY JENNIFER ULTRACET; Start 11/20/18 at 21:00 Bupropion HCl (Wellbutrin Sr) 150 mg BID PO Last administered on 11/24/18 08:35; Start 11/20/18 at 10:00 Metformin HCl (Glucophage) 850 mg TIDWMEALS PO Last administered on 11/24/18 12:07; Start 11/20/18 at 09:30 Furosemide (Lasix) 80 mg DAILY PO Last administered on 11/24/18 08:36; Start 11/20/18 at 10:00 Insulin Glargine (Lantus Syringe) 50 unit BID SQ Last administered on 11/20/18 12:39; Start 11/20/18 at 10:00; Stop 11/20/18 at 18:37; Status DC Insulin Human Lispro (HumaLOG) 30 units TIDAC SQ Last administered on 11/20/18 12:39; Start 11/20/18 at 09:30; Stop 11/20/18 at 18:37; Status DC Insulin Human Lispro (HumaLOG) 15 units PRN TID PRN SQ WITH SNACKS; Start 11/20/18 at 09:30 Acetaminophen (Tylenol) 500 mg PRN Q6HRS PRN PO MILD PAIN/FEVER; Start 11/20/18 at 13:00 Acetaminophen (Tylenol) 1,000 mg PRN Q6HRS PRN PO MILD PAIN/FEVER; Start 11/20/18 at 13:00 Insulin Glargine (Lantus Syringe) 40 unit BID SQ Last administered on 11/24/18 08:46; Start 11/20/18 at 21:00 Insulin Human Lispro (HumaLOG) 25 units TIDAC SQ Last administered on 11/24/18 12:09; Start 11/21/18 at 07:30 Sodium Chloride 500 ml @ 500 mls/hr 1X ONCE IV Last administered on 11/20/18 20:24; Start 11/20/18 at 18:45; Stop 11/20/18 at 19:44; Status DC Sodium Chloride 1,000 ml @ 75 mls/hr [id number] IV Last administered on 11/24/18at 06:21; Start 11/23/18 at 16:30 Active Scripts Active Reported Lasix (Furosemide) 80 Mg Tablet 1 Tab PO DAILY Humulin R U-500 Kwikpen (Insulin Regular, Human) 500 Unit/1 Ml Insuln.pen 90 Unit SQ DAILYWSUP Humulin R U-500 Kwikpen (Insulin Regular, Human) 500 Unit/1 Ml Insuln.pen 90 Unit SQ DAILYWLUN Humulin R U-500 Kwikpen (Insulin Regular, Human) 500 Unit/1 Ml Insuln.pen 110 Units SQ DAILYWBKFT Citalopram Hbr (Citalopram Hydrobromide) 20 Mg Tablet 1 Tab PO DAILY Levemir (Insulin Detemir) 100 Unit/1 Ml Vial 50 Unit SQ BID Percocet 10-325 Mg Tablet (Oxycodone/Acetaminophen) 1 Each Tablet 1 Tab PO PRN Q8HRS Novolog Flexpen (Insulin Aspart) 100 Unit/1 Ml Insuln.pen 15 Unit SQ PRN Novolog Flexpen (Insulin Aspart) 100 Unit/1 Ml Insuln.pen 30 Unit SQ TIDWMEALS NITROGLYCERIN SubLingual (Nitroglycerin) 0.4 Mg Tab.subl 0.4 Mg SL PRN Q5MIN PRN Fluoxetine Hcl 40 Mg Capsule 40 Mg PO DAILY Docusate Sodium 100 Mg Capsule 100 Mg PO BID Atorvastatin Calcium 80 Mg Tablet 80 Mg PO HS Acetaminophen 500 Mg Tablet 1-2 Tab PO Q6HRS Lisinopril 5 Mg Tablet 1 Tab PO DAILY Trazodone Hcl 150 Mg Tablet 1 Tab PO QHS PRN Bupropion Hcl Sr (Bupropion Hcl) 150 Mg Tablet.er 150 Mg PO BID Metformin Hcl 850 Mg Tablet 850 Mg PO TID hold med until 11/23/15 Vital Signs Vital Signs Date Time Temp Pulse Resp B/P (MAP) Pulse Ox O2 Delivery O2 Flow Rate FiO2 11/24/18 11:00 98.0 85 19 151/66 (94) 93 Room Air 98.0 Labs Laboratory Tests Test 11/22/18 16:39 11/22/18 20:31 11/23/18 08:02 11/23/18 12:10 Glucose (Fingerstick) 101 mg/dL (70-99) 122 mg/dL (70-99) 178 mg/dL (70-99) 185 mg/dL (70-99) Test 11/23/18 15:35 11/23/18 16:52 11/23/18 20:28 11/24/18 07:26 Sodium Level 139 mmol/L (136-145) Potassium Level 4.7 mmol/L (3.5-5.1) Chloride Level 100 mmol/L (98-107) Carbon Dioxide Level 30 mmol/L (21-32) Anion Gap 9 (6-14) Blood Urea Nitrogen 21 mg/dL (8-26) Creatinine 1.2 mg/dL (0.7-1.3) Estimated GFR (Cockcroft-Gault) 60.8 Glucose Level 64 mg/dL (70-99) Calcium Level 9.5 mg/dL (8.5-10.1) Phosphorus Level 3.5 mg/dL (2.6-4.7) Albumin 3.5 g/dL (3.4-5.0) Glucose (Fingerstick) 76 mg/dL (70-99) 72 mg/dL (70-99) 174 mg/dL (70-99) Test 11/24/18 11:31 Glucose (Fingerstick) 213 mg/dL (70-99) Laboratory Tests Test 11/23/18 15:35 11/23/18 16:52 11/23/18 20:28 11/24/18 07:26 Sodium Level 139 mmol/L (136-145) Potassium Level 4.7 mmol/L (3.5-5.1) Chloride Level 100 mmol/L (98-107) Carbon Dioxide Level 30 mmol/L (21-32) Anion Gap 9 (6-14) Blood Urea Nitrogen 21 mg/dL (8-26) Creatinine 1.2 mg/dL (0.7-1.3) Estimated GFR (Cockcroft-Gault) 60.8 Glucose Level 64 mg/dL (70-99) Calcium Level 9.5 mg/dL (8.5-10.1) Phosphorus Level 3.5 mg/dL (2.6-4.7) Albumin 3.5 g/dL (3.4-5.0) Glucose (Fingerstick) 76 mg/dL (70-99) 72 mg/dL (70-99) 174 mg/dL (70-99) Test 11/24/18 11:31 Glucose (Fingerstick) 213 mg/dL (70-99) Allergies Allergies Coded Allergies Type Severity Reaction Last Updated Verified cortisone Allergy Intermediate Pt had swelling at injection site 02/03/15 Yes Disposition/Orders: Other (D/C TO SNF) Patient Instructions D/C PLANNING 33 MIN DEBRA FARR MD Nov 24, 2018 13:01
[2018-11-24] MEDS ORDERED: CHOL10003 PO (13:04)
[2018-11-24] MEDS ORDERED: INSU100V8 SQ (13:04)
[2018-11-24] MEDS ORDERED: INSU100I11 SQ (13:04)
[2018-11-24] MEDS ORDERED: TRAM50TA PO (13:04)
--- NOTE | 2018-11-24 13:07 | SNU/HH DC ---
DISCHARGE ORDERS DISCHARGE INFORMATION: FINAL DIAGNOSIS Problems Medical Problems: (1) Hypoglycemia Status: Acute (2) Unable to walk Status: Acute CONDITION ON DISCHARGE: Stable CODE STATUS: Code Status: Full [facility]ENIOR LIVING: SNF STAY <30 DAYS: Yes HOSPICE: HOSPICE: No HOSPICE EVAL & TREAT: No LTAC: ADMIT TO LTAC: No POST DISCHARGE ORDERS: ACTIVITY ORDERS: Activity as tolerated WEIGHT BEARING STATUS: As tolerated BATHING ORDERS: No Tub Bath until see DIET AFTER DISCHARGE: ADA WOUND/INCISION CARE: Keep wound/cast CDI CHECKS AFTER DISCHARGE: CHECKS AFTER DISCHARGE: Check blood press - daily, Check blood sugar, ac/hs TREATMENT/EQUIPMENT ORDERS: Physical Therapy For: Evalulation/Treatment Occupational Therapy For: Evaluation/Treatment DISCHARGE MEDICATIONS: Home Meds Active Scripts Cholecalciferol (Vitamin D3) (VITAMIN D3) 1,000 Unit Tablet, 1000 UNIT PO DAILY for BONE HEALTH for 30 Days, #30 TAB Prov:DEBRA FARR MD 11/24/18 Insulin Lispro (HUMALOG) 100 Unit/1 Ml Insuln.pen, 25 UNITS SQ TIDAC for DIABETES for 30 Days, #2 EACH Prov:DEBRA FARR MD 11/24/18 Insulin Glargine,Hum.rec.anlog (LANTUS) 100 Unit/1 Ml Vial, 40 UNIT SQ BID for DIABETES for 30 Days, #2 EACH Prov:DEBRA FARR MD 11/24/18 Tramadol Hcl (TRAMADOL HCL) 50 Mg Tablet, 37.5 MG PO PRN QHS PRN for PAIN UNREL BY JENNIFER ULTRACET for 14 Days, #20 TAB Prov:DEBRA FARR MD 11/24/18 Reported Medications Furosemide (LASIX) 80 Mg Tablet, 1 TAB PO DAILY for HF, #30 TAB 5 Refills 11/20/18 Citalopram Hydrobromide (CITALOPRAM HBR) 20 Mg Tablet, 1 TAB PO DAILY for depression , #30 TAB 5 Refills 01/03/18 Nitroglycerin (NITROGLYCERIN SubLingual) 0.4 Mg Tab.subl, 0.4 MG SL PRN Q5MIN PRN for CHEST PAIN, BOTTLE 02/16/17 Fluoxetine Hcl (FLUOXETINE HCL) 40 Mg Capsule, 40 MG PO DAILY, CAP 02/16/17 Docusate Sodium (DOCUSATE SODIUM) 100 Mg Capsule, 100 MG PO BID, CAP 02/16/17 Atorvastatin Calcium (ATORVASTATIN CALCIUM) 80 Mg Tablet, 80 MG PO HS for FOR CHOLESTEROL, #30 TAB 0 Refills 02/16/17 Acetaminophen (ACETAMINOPHEN) 500 Mg Tablet, 1-2 TAB PO Q6HRS, #60 TAB 02/16/17 Lisinopril (LISINOPRIL) 5 Mg Tablet, 1 TAB PO DAILY, #30 TAB 5 Refills 11/21/15 Trazodone Hcl (TRAZODONE HCL) 150 Mg Tablet, 1 TAB PO QHS PRN for INSOMNIA, #30 TAB 1 Refill 01/27/15 Bupropion Hcl (BUPROPION HCL SR) 150 Mg Tablet.er, 150 MG PO BID for Depression 05/17/14 Metformin Hcl (METFORMIN HCL) 850 Mg Tablet, 850 MG PO TID for DM hold med until 11/23/15 02/04/13 Discontinued Reported Medications Insulin Regular, Human (Humulin R U-500 Kwikpen) 500 Unit/1 Ml Insuln.pen, 90 UNIT SQ DAILYWSUP for diabetic, EACH 11/19/18 Insulin Regular, Human (Humulin R U-500 Kwikpen) 500 Unit/1 Ml Insuln.pen, 90 UNIT SQ DAILYWLUN for diabetic, EACH 11/19/18 Insulin Regular, Human (Humulin R U-500 Kwikpen) 500 Unit/1 Ml Insuln.pen, 110 UNITS SQ DAILYWBKFT for diabetic 11/19/18 Insulin Detemir (LEVEMIR) 100 Unit/1 Ml Vial, 50 UNIT SQ BID for blood sugar maintance , VIAL 01/03/18 Oxycodone/Apap 10-325 (PERCOCET 10-325 MG TABLET ) 1 Each Tablet, 1 TAB PO PRN Q8HRS, #90 TAB 02/16/17 Insulin Aspart (NOVOLOG FLEXPEN) 100 Unit/1 Ml Insuln.pen, 15 UNIT SQ PRN, SYR 02/16/17 Insulin Aspart (NOVOLOG FLEXPEN) 100 Unit/1 Ml Insuln.pen, 30 UNIT SQ TIDWMEALS, SYR 02/16/17 DEBRA FARR MD Nov 24, 2018 13:07
--- NOTE | 2018-11-24 15:07 | NUR ---
REVIEWED DISCHARGE INSTRUCTIONS WITH [facility] AND HIS . HE IS TRANSFERRING TO [facility]; REPORT CALLED TO [facility]. SALINE LOCK REMOVED. FOLLOW UP WITH DR. VARGAS IN 2 WEEKS CALLED AND MADE AN APPT. ALSO, INFORMED AND PATIENT TO INFORM [facility] TO [facility] AND PLACE INSERT IN RIGHT BOOT. THEY WAS CALLED THIS AM.
--- NOTE | 2018-11-24 15:51 | NUR ---
Late note: Orders faxed to [facility] and pt will transport via [facility] at 1500. Pt and notified, agreeable and deny any other needs at this time. Discussed with RN.
== END 2018-11-24 15:00 | DRG 562 ==
LOC: ER 17:25 → 5 SOUTH 20:03 → OBSVTOIN 11-20 14:13
PROVIDERS: ADMIT Internal Medicine; ATTEND Internal Medicine
PROC: 5A09357 Assistance with Respiratory Ventilation, Less than 24 Consecutive Hours, Continuous Positive Airway Pressure (ICD-10-PCS; principal; 2018-11-19)
PROC: 5A09357 Assistance with Respiratory Ventilation, Less than 24 Consecutive Hours, Continuous Positive Airway Pressure (ICD-10-PCS; 2018-11-20)
PROC: 5A09357 Assistance with Respiratory Ventilation, Less than 24 Consecutive Hours, Continuous Positive Airway Pressure (ICD-10-PCS; 2018-11-22)
PROC: 5A09357 Assistance with Respiratory Ventilation, Less than 24 Consecutive Hours, Continuous Positive Airway Pressure (ICD-10-PCS; 2018-11-23)
DX: S86.012A Strain of left Achilles tendon, initial encounter (principal); N17.0 Acute kidney failure with tubular necrosis; Z68.41 Body mass index [BMI] 40.0-44.9, adult; E11.649 Type 2 diabetes mellitus with hypoglycemia without coma; S86.011A Strain of right Achilles tendon, initial encounter; M19.90 Unspecified osteoarthritis, unspecified site; F41.9 Anxiety disorder, unspecified; F32.9 Major depressive disorder, single episode, unspecified; E78.5 Hyperlipidemia, unspecified; I10 Essential (primary) hypertension; E11.51 Type 2 diabetes mellitus with diabetic peripheral angiopathy without gangrene; I25.10 Atherosclerotic heart disease of native coronary artery without angina pectoris; J44.9 Chronic obstructive pulmonary disease, unspecified; K21.9 Gastro-esophageal reflux disease without esophagitis; M79.7 Fibromyalgia; E86.0 Dehydration; E66.01 Morbid (severe) obesity due to excess calories; I48.91 Unspecified atrial fibrillation; E78.00 Pure hypercholesterolemia, unspecified; G47.30 Sleep apnea, unspecified; Y93.89 Activity, other specified; Y92.89 Other specified places as the place of occurrence of the external cause; Y99.8 Other external cause status; Z95.1 Presence of aortocoronary bypass graft; Z59.0 Homelessness; Z95.0 Presence of cardiac pacemaker; Z95.2 Presence of prosthetic heart valve; Z98.1 Arthrodesis status; Z88.8 Allergy status to other drugs, medicaments and biological substances; Z83.3 Family history of diabetes mellitus; Z71.3 Dietary counseling and surveillance
CPT/HCPCS: 36415; 80048; 80053; 80069; 81001; 82962; 83735; 85025; 86140; 87086; 94660; G0378; G0379; J1815; J7030; J7040; 97110; 97530

== ENCOUNTER → 2018-12-03 | Outpatient (CLI) | payer MEDICARE, BC ==
[2018-11-24 11:00] VITALS: BP 151/66
[~2018-12-03] MED LIST changes: +ACET500T68 PO; +FURO80TA72 PO; +INSU100I11 SQ; +INSU500I SQ; +TRAM50TA PO
== END | disposition home or self-care (01) ==
LOC: SPEC 08:14
PROVIDERS: ATTEND Physician Assistant
DX: L08.9 Local infection of the skin and subcutaneous tissue, unspecified (principal)
CPT/HCPCS: 87071; 87075

== ENCOUNTER → 2019-03-17 | Outpatient (CLI) | payer MEDICARE, BC ==
[~2019-03-17] MED LIST changes: -BUPR150T20 PO; +BUPR150T27 PO; +FLUO20CA20 PO; -FLUO20CA8 PO
--- NOTE | 2019-03-17 16:46 | RAD ---
VENOUS LOWER EXT BILATERAL History: Right and left calf pain. Comparison: September 29, 2018 Discussion: Multiple longitudinal and transverse high resolution real-time images of the venous system of bilateral lower extremity were obtained with color and Doppler sampling. The common femoral, superficial femoral, popliteal and proximal calf veins are all patent and demonstrate normal flow and compressibility. Normal respiratory phasicity and augmentation is present. Impression: 1. No evidence of deep vein thrombosis within the bilateral lower extremities. Electronically signed by: Antonio Babcock DO (03/17/2019 4:43 PM) [email or web address]
== END | disposition home or self-care (01) ==
LOC: US 15:47
PROVIDERS: ATTEND Orthopaedic Surgery Sports Medicine
DX: M79.661 Pain in right lower leg (principal); M79.662 Pain in left lower leg
CPT/HCPCS: 93970